=== PATIENT | male | born 1940 | race Caucasian/White ===

== ENCOUNTER 2024-02-04 08:08 | Inpatient (IN) | payer MEDICARE, OTHER ==
[~2024-02-04] VITALS: Ht 175.3 cm; Wt 53.7 kg
[2024-02-04] MEDS: cloNIDine HCL 0.1 MG TAB PO ONE (09:01)
[2024-02-04 09:03] LABS: Basophils # (auto) 0 10 ^3/uL (0-0.2); Basophils % (auto) 0.5 % (0.0-2.0); Eosinophils # (auto) 0.5 10 ^3/uL (0-0.8); Eosinophils % (auto) 7.5 % (0.0-7.0); Hematocrit 42.8 % (41.0-53.0); Hemoglobin 14.3 g/dL (13.5-17.5); Lymphocytes # (auto) 1.1 10 ^3/uL (0.4-5.4); Lymphocytes % (auto) 18.3 % (10.0-50.0); Mean Corpuscular Hemoglobin 30.6 pg (28.0-32.0); Mean Corpuscular Hgb Conc. 33.5 g/dL (32.0-36.0); Mean Corpuscular Volume 91.3 fL (80.0-100.0); Monocytes # (auto) 0.5 10 ^3/uL (0-1.3); Monocytes % (auto) 8.3 % (0.0-12.0); Neutrophils # (auto) 4.1 10 ^3/uL (1.6-8.6); Neutrophils % (auto) 65.4 % (37.0-80.0); Nucleated Red Blood Cells % 0.1 %; Platelet Count (auto) 186 10^3/uL (140-450); Red Blood Cells 4.68 10^6/uL (4.5-5.90); Red Cell Distribution Width 14.8 % (11.8-14.3); White Blood Cell 6.2 10^3/uL (4.4-10.8)
[2024-02-04 09:17] LABS: Chloride 110 mmol/L (98-107); Potassium 4.5 mmol/L (3.5-5.1); Sodium 140 mmol/L (136-145)
[2024-02-04 09:18] LABS: Anion Gap 6 (5-15); Calcium 10.1 mg/dL (8.7-10.4); Carbon Dioxide 24 mmol/L (20-31)
[2024-02-04 09:23] LABS: BUN/Creatinine Ratio 30.1 (10.0-20.0); Blood Urea Nitrogen 53 mg/dL (9-23); Glucose 181 mg/dL (74-106)
[2024-02-04] MEDS ORDERED: LOSA-535 PO (12:55)
[2024-02-04] MEDS ORDERED: AMIO200T13 PO (12:55)
[2024-02-04] MEDS ORDERED: METO25TA93 PO ×2 (12:55→18:39)
[2024-02-04] MEDS ORDERED: HYDR25TA5 PO (12:55)
[2024-02-04] MEDS ORDERED: ATOR40TA52 PO (12:55)
[2024-02-04] MEDS ORDERED: ONDANSETRON HCL 4 MG/2 ML VIAL IV PRN (13:00)
[2024-02-04] MEDS ORDERED: NITROGLYCERIN 0.4 MG SL TAB SL PRN (13:00)
[2024-02-04] MEDS ORDERED: MORPHINE SULFATE INJ 2 MG/ml SYRG IV PRN (13:00)
[2024-02-04] MEDS ORDERED: DEXTROSE (50%) 50ML SYRG IV PRN (13:00)
[2024-02-04] MEDS ORDERED: ACETAMINOPHEN 325 MG TAB PO PRN (13:00)
[2024-02-04 13:56] LABS: Urine Bacteria None Seen /hpf (None Seen)
[2024-02-04 14:54] LABS: Urine Blood Negative /uL (Negative); Urine Clarity Clear (Clear); Urine Color Light-Yellow (Yellow); Urine Mucus FEW (None Seen); Urine Protein, UAD Negative (Negative); Urine Specific Gravity 1.021 (1.001-1.035); Urine Urobilinogen Normal (Negative); Urine WBC <1 /hpf (0 - 3)
[2024-02-04 14:54] LABS: Magnesium 2.7 mg/dL (1.6-2.6)
[2024-02-04 14:55] LABS: Phosphorus 4.9 mg/dL (2.4-5.1)
[2024-02-04 16:00] VITALS: PULSE 52; RESP 16; O2SAT 98
[2024-02-04 17:00] VITALS: BP 144/53; PULSE 54; RESP 18; TEMP 98.2; O2SAT 97
[2024-02-04] MEDS: InsuLIN REG 1unit/0.01ml Soln (100units/ml) SC SCH (17:00)
[2024-02-04 17:45] VITALS: PULSE 54; RESP 18; O2SAT 97
[2024-02-04] MEDS: ACCU-CHEK COMFORT CURVE STRIP VI SCH (18:05)
[2024-02-04] MEDS ORDERED: DAPA10TA3 PO (18:39)
[2024-02-04] MEDS ORDERED: CHOL20007 PO (18:39)
[2024-02-04] MEDS ORDERED: ASPI1TAB20 PO (18:39)
[2024-02-04] MEDS ORDERED: GLIP10TA9 PO (18:39)
[2024-02-04] MEDS ORDERED: INSUINJ37 SC (18:42)
[2024-02-04 20:00] VITALS: PULSE 55; PULSE 60; RESP 20; O2SAT 94
[2024-02-04 21:00] VITALS: BP_SYST 118; BP_SYST 139; BP_DIAS 57; PULSE 60; RESP 20; TEMP 97.6; O2SAT 94; O2SAT 97
[2024-02-04] MEDS: AMIODARONE HCL 200 MG TAB PO SCH (21:17)
[2024-02-04] MEDS: ATORVASTATIN 20 MG TAB PO SCH (21:17)
[2024-02-05 01:00] VITALS: BP 115/90; PULSE 56; RESP 18; TEMP 97.9; O2SAT 96
[2024-02-05 05:00] VITALS: BP 118/56; PULSE 53; RESP 20; TEMP 98; O2SAT 97
[2024-02-05 06:30] LABS: Basophils # (auto) 0 10 ^3/uL (0-0.2); Basophils % (auto) 0.5 % (0.0-2.0); Eosinophils # (auto) 0.5 10 ^3/uL (0-0.8); Eosinophils % (auto) 9.9 % (0.0-7.0); Hematocrit 36.6 % (41.0-53.0); Hemoglobin 12.6 g/dL (13.5-17.5); Lymphocytes % (auto) 18.4 % (10.0-50.0); Mean Corpuscular Hemoglobin 31.3 pg (28.0-32.0); Mean Corpuscular Hgb Conc. 34.4 g/dL (32.0-36.0); Monocytes # (auto) 0.5 10 ^3/uL (0-1.3); Monocytes % (auto) 9.2 % (0.0-12.0); Neutrophils # (auto) 3.3 10 ^3/uL (1.6-8.6); Nucleated Red Blood Cells % 0.1 %; Platelet Count (auto) 169 10^3/uL (140-450); Red Blood Cells 4.02 10^6/uL (4.5-5.90); Red Cell Distribution Width 14.6 % (11.8-14.3); White Blood Cell 5.4 10^3/uL (4.4-10.8)
[2024-02-05 06:39] LABS: Chloride 112 mmol/L (98-107); Potassium 4.3 mmol/L (3.5-5.1); Sodium 141 mmol/L (136-145)
[2024-02-05 06:40] LABS: Anion Gap 6 (5-15); Carbon Dioxide 23 mmol/L (20-31)
[2024-02-05 06:41] LABS: Calcium 9.6 mg/dL (8.7-10.4)
[2024-02-05 06:45] LABS: BUN/Creatinine Ratio 29.8 (10.0-20.0); Blood Urea Nitrogen 45 mg/dL (9-23); Glucose 109 mg/dL (74-106)
[2024-02-05] MEDS: hydroCHLOROthiazide 25 MG TAB PO SCH (09:13)
[2024-02-05] MEDS: ASPirin-EC 81 mg tab PO SCH (09:13)
[2024-02-05] MEDS: LOSARTAN POTASSIUM 50 MG TAB PO SCH (09:14)
[2024-02-05] MEDS ORDERED: METOPROLOL SUCCINATE XL 50 MG TAB PO SCH (10:00)
[2024-02-05 13:00] VITALS: BP 110/57; PULSE 57; RESP 17; TEMP 97.7; O2SAT 95
[2024-02-05 17:00] VITALS: BP 103/54; PULSE 55; RESP 16; TEMP 97.6; O2SAT 94
[2024-02-05 20:00] VITALS: PULSE 62; PULSE 73
[2024-02-05 23:00] VITALS: BP 105/54; PULSE 59; RESP 18; TEMP 97.7; O2SAT 96
[2024-02-06 01:00] VITALS: BP 120/58; PULSE 62; RESP 17; TEMP 97.8; O2SAT 95
[2024-02-06 05:00] VITALS: BP 128/58; PULSE 59; RESP 16; TEMP 97.9; O2SAT 96
[2024-02-06 06:04] LABS: Basophils # (auto) 0 10 ^3/uL (0-0.2); Basophils % (auto) 0.5 % (0.0-2.0); Eosinophils # (auto) 0.4 10 ^3/uL (0-0.8); Eosinophils % (auto) 9.1 % (0.0-7.0); Hematocrit 37.5 % (41.0-53.0); Hemoglobin 12.9 g/dL (13.5-17.5); Lymphocytes % (auto) 20.6 % (10.0-50.0); Mean Corpuscular Hemoglobin 31.2 pg (28.0-32.0); Mean Corpuscular Hgb Conc. 34.5 g/dL (32.0-36.0); Mean Corpuscular Volume 90.3 fL (80.0-100.0); Monocytes # (auto) 0.5 10 ^3/uL (0-1.3); Monocytes % (auto) 9.8 % (0.0-12.0); Neutrophils # (auto) 2.9 10 ^3/uL (1.6-8.6); Platelet Count (auto) 162 10^3/uL (140-450); Red Blood Cells 4.15 10^6/uL (4.5-5.90); Red Cell Distribution Width 14.5 % (11.8-14.3); White Blood Cell 4.9 10^3/uL (4.4-10.8)
[2024-02-06 06:24] LABS: Alanine Aminotransferase 28 U/L (7-40); Alkaline Phosphatase 80 U/L (46-116); Anion Gap 10 (5-15); Aspartate Aminotransferase 15 U/L (13-40); BUN/Creatinine Ratio 27.9 (10.0-20.0); Bilirubin, Total 0.6 mg/dL (0.2-1.0); Blood Urea Nitrogen 41 mg/dL (9-23); Calcium 9.5 mg/dL (8.7-10.4); Carbon Dioxide 21 mmol/L (20-31); Chloride 110 mmol/L (98-107); Glucose 132 mg/dL (74-106); Sodium 141 mmol/L (136-145); Total Protein 6.3 g/dL (5.7-8.2)
[2024-02-06 07:30] VITALS: PULSE 50
[2024-02-06 09:00] VITALS: BP 134/79; PULSE 61; RESP 21; TEMP 98.5; O2SAT 96
[2024-02-06] MEDS: METOPROLOL SUCCINATE XL 50 MG TAB PO SCH (10:01)
[2024-02-06 13:00] VITALS: BP 126/56; PULSE 57; RESP 19; TEMP 99; O2SAT 97
[2024-02-06] MEDS ORDERED: METO-6 PO (14:50)
[2024-02-06 16:46] VITALS: BP 134/72; PULSE 58; TEMP 37.2
== END 2024-02-06 17:50 | disposition home or self-care (01) | DRG 309 ==
LOC: ER 08:08 → TELE 12:48 → TELE-EAST 17:05 → TELE-E-ADS 02-05 08:57
PROVIDERS: ADMIT Registered Nurse General Practice; ATTEND Registered Nurse General Practice
DX: R00.1 Bradycardia, unspecified (principal); N17.9 Acute kidney failure, unspecified; T44.7X5A Adverse effect of beta-adrenoreceptor antagonists, initial encounter; I47.10 Supraventricular tachycardia, unspecified; I48.91 Unspecified atrial fibrillation; E11.22 Type 2 diabetes mellitus with diabetic chronic kidney disease; N18.9 Chronic kidney disease, unspecified; I49.3 Ventricular premature depolarization; I12.9 Hypertensive chronic kidney disease with stage 1 through stage 4 chronic kidney disease, or unspecified chronic kidney disease; E78.5 Hyperlipidemia, unspecified; E87.8 Other disorders of electrolyte and fluid balance, not elsewhere classified; E83.41 Hypermagnesemia; K21.9 Gastro-esophageal reflux disease without esophagitis; Z86.73 Personal history of transient ischemic attack (TIA), and cerebral infarction without residual deficits; Z90.49 Acquired absence of other specified parts of digestive tract; I25.2 Old myocardial infarction; Z87.891 Personal history of nicotine dependence; Z79.899 Other long term (current) drug therapy; Z79.84 Long term (current) use of oral hypoglycemic drugs; Z79.82 Long term (current) use of aspirin; Z79.4 Long term (current) use of insulin
CPT/HCPCS: 36415; 70450; 71045; 80048; 80053; 80061; 81001; 82306; 82607; 82962; 83036; 83735; 84100; 84443; 84484; 85025; 93005; 93306; 93886; 99291; G0378; J1815

== ENCOUNTER 2024-09-15 16:37 | Inpatient (IN) | payer MEDICARE, OTHER ==
[~2024-09-15] VITALS: Ht 177.8 cm; Wt 77.2 kg
[~2024-09-15 16:37] MED LIST: AMIO200T13 PO; ASPI1TAB20 PO; ATOR40TA52 PO; CHOL20007 PO; DAPA10TA3 PO; GLIP10TA9 PO; INSUINJ37 SC; METO-6 PO
--- NOTE | 2024-09-15 16:48 | ECG ---
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
--- NOTE | 2024-09-15 17:51 | ED.PDOC ---
HPI (NEURO) HPI Comments This is an 83 year old male WILMER presenting to the ED with chief complaint of left leg weakness. Patient reports that he woke up this morning with left leg weakness, not being able to move around as he normally does. Patient relays that he was not able to walk himself around with his walker as well. Patient denies any falls, left arm weakness, chest pain, SOB, fever, or chills. Chief Complaint: General Weakness Time Seen by MD: 17:50 Primary Care Provider: UNKNOWN Reviewed Notes: Nurses Notes, Medications, Allergies Information Source: Patient Mode of Arrival: EMS Severity: Moderate Dizziness/Weakness Severity: Unable to do activities Timing: Hours Duration: Since onset Prehospital treatment: None Weakness Location: (L) Leg Onset: At rest Circumstances: Spontaneous Past Medical History PAST MEDICAL HISTORY: Cancer (Prostate), CKF, CVA, DM, HTN Surgical History: Cholecystectomy, Hernia Repair, Tonsillectomy Surgical History (Other): Cataract surgery Family History Family History: Reviewed,noncontributory to illness Social History Smoker: Non-Smoker Alcohol: Denies ETOH Use Drugs: Denies Drug Use Lives In: Home Constitutional: denies: chills, diaphoresis, fatigue, fever, malaise, sweats, weakness, others EENTM: denies: blurred vision, double vision, ear bleeding, ear discharge, ear drainage, ear pain, ear ringing, eye pain, eye redness, hearing loss, mouth pain, mouth swelling, nasal discharge, nose bleeding, nose congestion, nose pain, photophobia, tearing, throat pain, throat swelling, voice changes, others Respiratory: denies: cough, hemoptysis, orthopnea, SOB at rest, shortness of breath, SOB with excertion, stridor, wheezing, others Cardiovascular: denies: chest pain, dizzy spells, diaphoresis, Dyspnea on exertion, edema, irregular heart beat, left arm pain, lightheadedness, palpitations, PND, syncope, others Gastrointestinal: denies: abdomen distended, abdominal pain, blood streaked bowels, constipated, diarrhea, dysphagia, difficulty swallowing, hematemesis, melena, nausea, poor appetite, poor fluid intake, rectal bleeding, rectal pain, vomiting, others Genitourinary: denies: burning, dysuria, flank pain, frequency, hematuria, incontinence, penile discharge, penile sore, pain, testicle pain, testicle swelling, urgency, others Neurological: reports: others (Left leg weakness); denies: dizziness, fainting, headache, left sided numbness, left sided weakness, numbness, paresthesia, pre- existing deficit, right sided numbness, right sided weakness, seizure, speech problems, tingling, tremors, weakness Musculoskeletal: denies: back pain, gout, joint pain, joint swelling, muscle pain, muscle stiffness, neck pain, others Integumetry: denies: bruises, change in color, change in hair/nails, dryness, laceration, lesions, lumps, rash, wounds, others Allergic/Immunocompromised: denies: Difficulty Healing, Frequent Infections, Hives, Itching, others Hematologic/Lymphatic: denies: anemia, blood clots, easy bleeding, easy bruising, swollen glands, others Endocrine: denies: excessive hunger, excessive sweating, excessive thirst, excessive urination, flushing, intolerance to cold, intolerance to heat, unexplained weight gain, unexplained weight loss, others Psychiatric: denies: anxiety, bipolar disorder, depression, hopeless, panic disorder, schizophrenia, sleepless, suicidal, others All Other Systems: Reviewed and Negative Physical Exam General Appearance: Moderate Distress HEENT: Normal ENT Inspection, Pharynx Normal, TMs Normal Neck: Full Range of Motion, Non-Tender, Normal, Normal Inspection Respiratory: Chest Non-Tender, Lungs Clear, No Accessory Muscle Use, No Respiratory Distress, Normal Breath Sounds Cardiovascular: No Edema, No JVD, No Murmur, No Gallop, Normal Peripheral Pulses, Regular Rate/Rhythm Breast Exam: Deferred Gastrointestinal: No Organomegaly, Non Tender, No Pulsatile Mass, Normal Bowel Sounds, Soft Genitalia: Deferred Pelvic: Deferred Rectal: Deferred Extremities: No calf tenderness, Normal capillary refill, No pedal edema Musculoskeletal : Apperance: Normal Neurologic: Alert, Motor Weakness (Left-sided lower extremity weakness), Normal Affect, Normal Mood, No Sensory Deficits Cerebellar Function: Unable to Test Reflexes: Normal Skin: Dry, Normal Color, Warm Lymphatic: No Adenopathy EKG EKG : Pulse Rate (adult): 55 [place]: Normal Cardiac Rhythm: NSR Block: None Hypertrophy: None ST: Normal Comments Low Voltage Was a procedure done? Was a procedure done?: No Differential Diagnosis (SZ) Seizure: N/A CVA: CVA, Hypoglycemia, TIA X-Ray, Labs, Meds, VS Vital Signs Date Time Temp Pulse Resp B/P (MAP) Pulse Ox O2 Delivery O2 Flow Rate FiO2 09/15/24 17:51 55 09/15/24 16:42 55 09/15/24 16:40 97.9 62 16 138/61 (86) 96 97.9 Lab Test 09/15/24 19:08 09/15/24 18:04 Range/Units Troponin I High Sensitivity 23 25 </=54 ng/L White Blood Count 6.1 4.4-10.8 10^3/uL Red Blood Count 4.51 4.5-5.90 10^6/uL Hemoglobin 13.7 13.5-17.5 g/dL Hematocrit 40.5 L 41.0-53.0 % Mean Corpuscular Volume 89.7 80.0-100.0 fL Mean Corpuscular Hemoglobin 30.3 28.0-32.0 pg Mean Corpuscular Hemoglobin Concent 33.8 32.0-36.0 g/dL Red Cell Distribution Width 14.7 H 11.8-14.3 % Platelet Count 177 140-450 10^3/uL Mean Platelet Volume 7.5 6.9-10.8 fL Neutrophils (%) (Auto) 71.8 37.0-80.0 % Lymphocytes (%) (Auto) 19.0 10.0-50.0 % Monocytes (%) (Auto) 7.5 0.0-12.0 % Eosinophils (%) (Auto) 1.3 0.0-7.0 % Basophils (%) (Auto) 0.4 0.0-2.0 % Neutrophils # (Auto) 4.4 1.6-8.6 10 ^3/uL Lymphocytes # (Auto) 1.2 0.4-5.4 10 ^3/uL Monocytes # (Auto) 0.5 0-1.3 10 ^3/uL Eosinophils # (Auto) 0.1 0-0.8 10 ^3/uL Basophils # (Auto) 0 0-0.2 10 ^3/uL Nucleated Red Blood Cells 0.2 % Sodium Level 144 136-145 mmol/L Potassium Level 4.0 3.5-5.1 mmol/L Chloride Level 113 H 98-107 mmol/L Carbon Dioxide Level 26 20-31 mmol/L Anion Gap 5 5-15 Blood Urea Nitrogen 28 H 9-23 mg/dL Creatinine 1.31 H 0.700-1.30 mg/dL Glomerular Filtration Rate Calc 53 >90 mL/min BUN/Creatinine Ratio 21.4 H 10.0-20.0 Serum Glucose 79 74-106 mg/dL Calcium Level 10.2 8.7-10.4 mg/dL CT Head indicates: No evidence of acute intracranial abnormality. If symptoms persist, consider MRI for further evaluation. The patient's CBC is within normal limits The chemistry panel shows a BUN of 28 and creatinine of 1.31 The urine test is pending The patient's seems to have some weakness to the left leg. The patient's troponin level x2 is negative The patient is being admitted at this time The patient understands and agrees with the management Images Reviewed?: Images reviewed and evaluated by me Time of 1ST Reevaluation: 20:08 Reevaluation 1ST: Unchanged Patient Education/Counseling: Diagnosis, Treatment, Prognosis Family Education/Counseling: Diagnosis, Treatment, Prognosis Additional Information Reviewed patient's previous visit(s): 02/04/24 for dizziness The following tests were ordered, and results were reviewed by me: Head CT, EKG, CBC, BMP, UA, Troponin Additional information was gathered from interviewing the following independent historian: EMS, Nephew I reviewed and agreed with the following test results read by other provider: Head CT I discussed treatments and results with medical personnel and: Patient and family Comprehensive systems review obtained and negative except for what is stated in the HPI. Departure 1 Departure Time of Disposition: 20:07 Impression: Primary Impression: TIA (transient ischemic attack) Additional Impressions: Generalized weakness Autonomic dysfunction Disposition: 09 ADMITTED INPATIENT Admit to: Tele Condition: Fair Critical Care Note Critical Care Time?: No Stability Stability form required: Yes Unstable for transfer: Telemetry monitoring (Telemetry monitoring required), ED Physician Assesment Heart Score Heart Score: Heart Score Response (Comments) Value History N/A 0 EKG N/A 0 Age N/A 0 Risk Factors N/A 0 Troponin N/A 0 Total 0 I personally scribed for MICAH TORRES MD ([email or web address]) on 09/15/24 at 17:51. Electronically submitted by Ryne Hathaway ([email or web address]). I personally scribed for MICAH TORRES MD ([email or web address]) on 09/15/24 at 17:51. Electronically submitted by Ryne Hathaway ([email or web address]). I personally scribed for MICAH TORRES MD ([email or web address]) on 09/15/24 at 18:09. Electronically submitted by Ryne Hathaway ([email or web address]). I personally scribed for MICAH TORRES MD ([email or web address]) on 09/15/24 at 18:54. Electronically submitted by Ryne Hathaway ([email or web address]). MICAH TORRES MD Sep 15, 2024 17:51
[2024-09-15 18:25] LABS: Basophils # (auto) 0 10 ^3/uL (0-0.2); Basophils % (auto) 0.4 % (0.0-2.0); Eosinophils # (auto) 0.1 10 ^3/uL (0-0.8); Eosinophils % (auto) 1.3 % (0.0-7.0); Hematocrit 40.5 % (41.0-53.0); Hemoglobin 13.7 g/dL (13.5-17.5); Lymphocytes # (auto) 1.2 10 ^3/uL (0.4-5.4); Mean Corpuscular Hemoglobin 30.3 pg (28.0-32.0); Mean Corpuscular Hgb Conc. 33.8 g/dL (32.0-36.0); Mean Corpuscular Volume 89.7 fL (80.0-100.0); Monocytes # (auto) 0.5 10 ^3/uL (0-1.3); Monocytes % (auto) 7.5 % (0.0-12.0); Neutrophils # (auto) 4.4 10 ^3/uL (1.6-8.6); Neutrophils % (auto) 71.8 % (37.0-80.0); Nucleated Red Blood Cells % 0.2 %; Platelet Count (auto) 177 10^3/uL (140-450); Red Blood Cells 4.51 10^6/uL (4.5-5.90); Red Cell Distribution Width 14.7 % (11.8-14.3); White Blood Cell 6.1 10^3/uL (4.4-10.8)
[2024-09-15 18:32] LABS: Sodium 144 mmol/L (136-145)
[2024-09-15 18:33] LABS: Anion Gap 5 (5-15); Carbon Dioxide 26 mmol/L (20-31)
[2024-09-15 18:34] LABS: Calcium 10.2 mg/dL (8.7-10.4)
[2024-09-15 18:38] LABS: Glucose 79 mg/dL (74-106)
[2024-09-15 18:39] LABS: BUN/Creatinine Ratio 21.4 (10.0-20.0)
[2024-09-15 18:44] LABS: Blood Urea Nitrogen 28 mg/dL (9-23); Chloride 113 mmol/L (98-107)
--- NOTE | 2024-09-15 18:44 | DVH ---
Procedure: CT HEAD WITHOUT CONTRAST Study Date and Requested Time: 09/15/2024 06:10 PM History: left leg pain Comparison: CT HEAD WITHOUT CONTRAST on DOS: 02/04/24 Dose: CTDI: 59.37 mGy DLP: 951.67 mGycm Technique: Multiplanar images obtained through the brain without intravenous contrast. Findings: Moderate to severe diffuse brain atrophy. Severe chronic small vessel ischemic changes. Encephalomala nathalie upper the left high convexity frontal lobe with chronic lacunar infarct within the right basal ga nglia and right thalamus No hemorrhages, masses, mass effect, midline shift, herniation or cytotoxic edema following a large v ascular territory. No intra-axial or extra-axial fluid collections. No evidence of hydrocephalus. The basal cisterns are patent. The pituitary gland, sella and parasellar regions are unremarkable. The cerebellum is unremarkable. Bilateral lens replacement. Otherwise, orbits and globes are unremarkable. Mucoperiosteal thickening of the frontal, maxillary and ethmoid air cells with opacification of left posterior ethmoid air ce lls. The mastoids are clear. There are no worrisome calvarial lesions. Impression: No evidence of acute intracranial abnormality. If symptoms persist, consider MRI for further evaluati on.
[2024-09-15] MEDS ORDERED: DOCUSATE SOD 100 MG CAP PO PRN (21:00)
[2024-09-15] MEDS ORDERED: ACETAMINOPHEN 325 MG TAB PO PRN (21:00)
[2024-09-15] MEDS ORDERED: SODIUM CHLORIDE 0.9% 1,000 ML IV SCH (21:00)
[2024-09-15] MEDS ORDERED: NITROGLYCERIN 0.4 MG SL TAB SL PRN (21:00)
[2024-09-15] MEDS ORDERED: ONDANSETRON HCL 4 MG/2 ML VIAL IV PRN (21:00)
[2024-09-15] MEDS ORDERED: MORPHINE SULFATE 4 MG/ML SYR/VIAL IV PRN ×2 (21:00)
--- NOTE | 2024-09-15 21:55 | DVHHPRES ---
History of Present Illness Resident Creating Document: JOCELYN SHARIF RESIDENT History of Present Illness Mr. Espinoza, a 83-year-old male with past medical history includes prostate cancer, chronic kidney failure, a previous stroke, diabetes, paroxysmal atrial fibrillation and hypertension and surgical history includes a cholecystectomy, hernia repair, tonsillectomy, spinal surgery, and cataract surgery was Brought In By Ambulance from home into the emergency department with a sudden onset of left leg weakness that began upon waking, impairing his ability to walk even with a walker. He denies experiencing any falls, left arm weakness, chest pain, shortness of breath, fever, or chills. Floor Manager Dr. Hernandez and Dr. Brower is PCP. Differentials include cerebrovascular accident (CVA), hypoglycemia, and transient ischemic attack (TIA), with additional concerns including generalized weakness and autonomic dysfunction. The patient was hospitalized around February 03, 2010, while incarcerated, due to SVT/NSVT and frequent PVCs, accompanied by a brief episode of dizziness and vertigo that resolved on its own. Neurology and cardiology evaluations were conducted. Imaging showed chronic ischemic changes, and EKG revealed sinus bradycardia. Lab results indicated acute kidney injury on top of chronic kidney disease, which later improved. The patient was started on aspirin and atorvastatin, continued on amiodarone (despite no atrial fibrillation history), and had a reduced dose of metoprolol. An echocardiogram showed concentric left ventricular hypertrophy with preserved ejection fraction, and carotid Doppler results were normal. Past Medical History prostate cancer, chronic kidney failure, a previous stroke, diabetes, paroxysmal atrial fibrillation and hypertension Past Surgical History cholecystectomy, hernia repair, tonsillectomy, spinal surgery, and cataract surgery Family History: None, DM, Hypertension, Other (Noncontributory) Smoke: No ALCOHOL: none Drugs: None Lives: with Family Domestic Violence: Neg Review of Systems Constitutional: Yes: Weakness, Malaise; No: Fever, Chills, Sweats, Other Eyes: No: Pain, Vision change, Conjunctivae inflammation, Eyelid inflammation, Other, Redness ENT: No: Ear pain, Ear discharge, Nose pain, Nose discharge, Nose congestion, Mouth pain, Mouth swelling, Throat pain, Throat swelling, Other Respiratory: No: Cough, Dry, Shortness of breath, SOB with excertion, Wheezing, Hemoptysis, Pleuritic Pain, Sputum, Wheezing, Other Cardiovascular: No: Chest Pain, Palpitations, Orthopnea, Paroxysmal Noc. Dyspnea, Edema, Lt Headedness, Other Gastrointestinal: No: Nausea, Vomiting, Abdominal Pain, Diarrhea, Constipation, Melena, Hematochezia, Other Genitourinary: No Dysuria, No Frequency, No Incontinence, No Hematuria, No Retention, No Other Musculoskeletal: other (Started onset of left leg weakness); No: neck pain, shoulder pain, arm pain, back pain, hand pain, leg pain, foot pain Skin: No: Rash, Lesions, Jaundice, Bruising, Other Neurological: Weakness; No: Numbness, Incoordination, Change in speech, Confusion, Seizures, Other Allergies: Coded Allergies: NO KNOWN ALLERGIES (Unverified , 02/04/24) Medications Current Medications Medications Dose Ordered Sig/Carlos Route Start Time Stop Time Status Last Admin Dose Admin Ondansetron HCl 4 mg Q4HP PRN IV 09/15/24 21:00 Docusate Sodium 100 mg BIDPRN PRN PO 09/15/24 21:00 Acetaminophen 650 mg Q6HP PRN PO 09/15/24 21:00 Morphine Sulfate 2 mg Q4HPRN PRN IV 09/15/24 21:00 Nitroglycerin 0.4 mg Q5MINP PRN SL 09/15/24 21:00 Morphine Sulfate 2 mg Q30M PRN IV 09/15/24 21:00 Aspirin 81 mg DAILY PO 09/16/24 10:00 Atorvastatin Calcium 40 mg HS PO 09/15/24 22:00 Exam Vital Signs Vital Signs Date Time Temp Pulse Resp B/P (MAP) Pulse Ox O2 Delivery O2 Flow Rate FiO2 09/15/24 20:07 98.5 67 18 155/75 (101) 97 98.5 General Appearance: Alert, Oriented X3, Cooperative, mild distress HEENT: Atraumatic, PERRLA, EOMI, Other (Mild mucosal dryness) Respiratory: Clear to auscultation, Normal air movement Cardiovascular: Regular rate, Normal S1, Normal S2, No murmurs, Gallops, Other Abdominal: Normal bowel sounds, Soft, No tenderness, No hepatospenomegaly, No masses Extremities: No clubbing, No cyanosis, No edema, Normal pulses, No tenderness/swelling Skin: No rashes, No breakdown, No significant lesion Neuro: Normal gait, Normal speech, Strength at 5/5 X4 ext, Normal tone, Sensation intact, Cranial nerves 3-12 NL, Reflexes 2+, Other (At baseline, likely recovered from the acute weakness) Psych/Mental Status: Mental status NL, Mood NL, Other (Denies homicidal or suicidal ideation) Labs/Xrays Labs Test 09/15/24 19:08 09/15/24 18:04 Range/Units Troponin I High Sensitivity 23 </=54 ng/L White Blood Count 6.1 4.4-10.8 10^3/uL Red Blood Count 4.51 4.5-5.90 10^6/uL Hemoglobin 13.7 13.5-17.5 g/dL Hematocrit 40.5 L 41.0-53.0 % Mean Corpuscular Volume 89.7 80.0-100.0 fL Mean Corpuscular Hemoglobin 30.3 28.0-32.0 pg Mean Corpuscular Hemoglobin Concent 33.8 32.0-36.0 g/dL Red Cell Distribution Width 14.7 H 11.8-14.3 % Platelet Count 177 140-450 10^3/uL Mean Platelet Volume 7.5 6.9-10.8 fL Neutrophils (%) (Auto) 71.8 37.0-80.0 % Lymphocytes (%) (Auto) 19.0 10.0-50.0 % Monocytes (%) (Auto) 7.5 0.0-12.0 % Eosinophils (%) (Auto) 1.3 0.0-7.0 % Basophils (%) (Auto) 0.4 0.0-2.0 % Neutrophils # (Auto) 4.4 1.6-8.6 10 ^3/uL Lymphocytes # (Auto) 1.2 0.4-5.4 10 ^3/uL Monocytes # (Auto) 0.5 0-1.3 10 ^3/uL Eosinophils # (Auto) 0.1 0-0.8 10 ^3/uL Basophils # (Auto) 0 0-0.2 10 ^3/uL Nucleated Red Blood Cells 0.2 % Sodium Level 144 136-145 mmol/L Potassium Level 4.0 3.5-5.1 mmol/L Chloride Level 113 H 98-107 mmol/L Carbon Dioxide Level 26 20-31 mmol/L Anion Gap 5 5-15 Blood Urea Nitrogen 28 H 9-23 mg/dL Creatinine 1.31 H 0.700-1.30 mg/dL Glomerular Filtration Rate Calc 53 >90 mL/min BUN/Creatinine Ratio 21.4 H 10.0-20.0 Serum Glucose 79 74-106 mg/dL Calcium Level 10.2 8.7-10.4 mg/dL Assessment/Plan Assessment/Plan Assessment: #Likely case of TIA #History of prostate cancer #chronic kidney failure CKD stage IIIB # history of previous stroke, # diabetes mellitus well controlled, HGB A1c around seven on home Lantus # fairly controlled essential hypertension # paroxysmal atrial fibrillation, CHADS-VASc score of six, apparently not on anticoagulants needs further evaluation # surgical history of cholecystectomy # surgical history of hernia repair # surgical history of tonsillectomy # surgical history of spinal surgery # surgical history of cataract surgery # mild dehydration Status post IV gentle fluid rehydration. #ACS ruled out trops -ve telemetry and EKG cxr pending #Acute Hemorrhagic Stroke Ruled out #likely Generalized deconditioning #generalized anxiety/ depression on SSRI Plan: #HnH stable , significant anemia ruled out. #CKD stage III b , around baseline creatinine 1.3 , avoid nephrotoxic. #Acute Hemorrhagic Stroke Ruled out with NCCT head: aspirin, statin PT, SW as needed. #Likely case of TIA, carotid Doppler, echo pending. Continue conservative management. #DM HbA1c , bg 79 poc, LR D5 for now hold the home meds Lantus on hold for now, recheck HGB A1c #Prostate Cancer in remission check PSA #Generalized deconditioning, rule out mild - moderate Malnutrition check for albumin with complete CMP. #History of anxiety/ depression: Denies homicidal or suicidal ideation continue Sertraline HCl 25 mg #essential hypertension: Home medications include hydrochlorothiazide 25 mg, lisinopril 20 mg, given advanced age liberal blood pressure control to continue. Tomorrow we will start with lisinopril 20 with the daily renal function tests. #History of paroxysmal atrial fibrillation: not on anticoagulants, likely due to advanced age and high-risk. Follows Dr. Hernandez cardiology, metoprolol succinate ER 25 mg, amiodarone 200 mg daily , continue telemetry, holding metoprolol and amiodarone given heart rate In 50s. #high-risk of TIA, debating on MRI, neurology consulted, swallow eval, aspiration precaution, fall precaution, physical therapy evaluation pending. #DVT prophylaxis with SCDs, avoid anticoagulants given advanced age for now #GI prophylaxis with IV PPI Code status: Full code, goals of care discussed along with the care plans. Patient is agreeable. Patient is getting admitted in hospital for further workup and management with a neurology consult and physical therapy Discussed with Dr. Briggs. Plan discussed with: Patient My Orders Orders - JOCELYN SHARIF RESIDENT Procedure Category Date Status Time Admit ADMIT 09/15/24 Transmitted 20:56 Allergies MICHAEL 09/15/24 In Process 20:56 Code Status CODE 09/15/24 Transmitted 20:56 Ondansetron Hcl PHA 09/15/24 In Process (Zofran) 21:00 Docusate Sodium PHA 09/15/24 In Process Capsule (Colace 21:00 Fall Risk Precautions MICAHEL 09/15/[address] 20:56 Complete Blood Count LAB 09/16/24 Verified 04:00 Comprehensive LAB 09/16/24 Verified Metabolic Panel 04:00 Npo (Nothing By DIET 09/16/24 Transmitted Mouth) Diet Breakfast Pt Request For Service PT 09/15/24 Logged 20:56 * Swallow Request ST 09/15/24 Transmitted 20:56 Echo 2d Mode Cardiac US 09/15/24 Logged DOP 20:56 Carotid Duplx W Color US 09/15/24 Logged DOP 20:56 Condition: Fair MICHAEL 09/15/24 In Process 20:56 Acetaminophen Tablet PHA 09/15/24 In Process (Tylenol Tablet) 21:00 Bedside Commode MICHAEL 09/15/24 In Process 20:56 Sequential MICHAEL 09/15/24 In Process Compression Device Nitroglycerin PHA 09/15/24 In Process Sublingual (Ntrostat 21:00 Oxygen By Nasal RT 09/15/24 Transmitted Cannula 20:56 Stat Ekg For Chest MICHAEL 09/15/24 In Process Pain 20:56 Notify Md Of Changes MICHAEL 09/15/24 In Process From Base 20:56 Black [employer] White Printer Operator For MICHAEL 09/15/24 In Process 24 Hours 20:56 Emergency Dysrhythmia MICHAEL 09/15/24 In Process Protocol 20:56 Rhythm Strips Once MICHAEL 09/15/24 In Process Every Shift 20:56 * Neurology Consult CONS 09/15/24 Transmitted 21:13 Aspirin Tablet PHA 09/16/24 In Process 10:00 Thyroid Stimulating LAB 09/15/24 In Process Hormone 21:20 Chest Xray 1 View XY 09/15/24 Taken 21:20 Atorvastatin (Lipitor) PHA 09/15/24 In Process 22:00 Atorvastatin (Lipitor) PHA 09/15/24 In Process 22:00 D5w/Lactated Ringers PHA 09/15/24 In Process (D5wlr) 21:30 Psa Total+% Free LAB 09/15/24 In Process 21:28 Morphine Sulfate PHA 09/15/24 In Process Injection 21:00 Morphine Sulfate PHA 09/15/24 In Process Injection 21:00 Date of Service: Sep 15, 2024 Billing Provider: XIANG BRIGGS MD Common Visit Codes: 28822-LHNTWIS INP/OBS CARE (HIGH) Secondary Visit Codes: 07471-[id number] CARE PLAN 30 MINUTES JOCELYN SHARIF RESIDENT Sep 15, 2024 21:55 XIANG BRIGGS MD Sep 17, 2024 22:18
--- NOTE | 2024-09-15 21:57 | DVH ---
CHEST RADIOGRAPH Indication: rule out intrathoracic pathology Technique: Single frontal view of the chest was obtained Comparison: XY CHEST PORTABLE on DOS: 02/05/24 FINDINGS: Lines and Tubes: None Lungs: Clear Pleura: No effusion. No pneumothorax. Cardiomediastinal contours: Unremarkable Bones: Unremarkable IMPRESSION: Clear lungs.
[2024-09-15] MEDS: ATORVASTATIN 20 MG TAB PO SCH (22:31)
[2024-09-15] MEDS: ASPirin 81 mg TAB PO ONE (22:41)
[2024-09-15] MEDS: ATORVASTATIN 20 MG TAB PO ONE (22:42)
[2024-09-15 23:52] VITALS: PULSE 50
[2024-09-16] VITALS (8 sets, daily range): BP systolic 118–150; BP diastolic 49–66; PULSE 45–64; RESP 17–18; TEMP 97.5–98.3; O2SAT 94–98
[2024-09-16] MEDS ORDERED: HYDR25TA5 PO (00:32)
[2024-09-16] MEDS ORDERED: LISI20TA56 PO (00:32)
[2024-09-16] MEDS ORDERED: GLIP5TAB21 PO (00:32)
[2024-09-16] MEDS ORDERED: METO25TA93 PO (00:32)
[2024-09-16] MEDS ORDERED: LOSA-535 PO (00:32)
--- NOTE | 2024-09-16 01:11 | DVH ---
CAROTID DOPPLER EXAMINATION CLINICAL HISTORY: rule out carotid stenosis COMPARISON: 02/04/2024. TECHNIQUE: Real-time high resolution grayscale imaging and color Doppler flow imaging with pulsed du plex sonography of the carotid and vertebral arteries is performed. Velocity criteria are extrapolated from angiographic diameter data as defined by the Society of [employer] in Ultrasound Consensus Conference (Radiology 2003; 229: 340-346). FINDINGS: Calcified plaque in the right carotid bulb. Plaque in the proximal left internal carotid artery. Vert ebral arteries appear patent with antegrade flow. Peak systolic velocities (cm/s): Right ICA proximal: 131.9 Right ICA mid: 84.0 Right ICA distal: 60.7 Right systolic ICA/CCA ratio: 2.2 Left ICA proximal: 49.6 Left ICA mid: 54.9 Left ICA distal: 59.8 Left systolic ICA/CCA ratio: 1.1 IMPRESSION: 50-69% stenosis in the right internal carotid artery. Antegrade flow in the bilateral vertebral arteries. HS:Y
[2024-09-16] MEDS: D5W/LACTATED RINGERS 1,000 ML IV ONE (01:16)
[2024-09-16] MEDS ORDERED: hydrALAZINE HCL 20 MG/ML VL IV PRN (01:30)
[2024-09-16] MEDS: ASPirin 81 mg TAB PO ONE (01:38)
[2024-09-16] MEDS: ATORVASTATIN 20 MG TAB PO ONE (01:38)
[2024-09-16 01:57] LABS: Urine Bacteria None Seen /hpf (None Seen)
[2024-09-16 02:09] LABS: Urine Blood Negative /uL (Negative); Urine Clarity Clear (Clear); Urine Color Light-Yellow (Yellow); Urine Protein, UAD TRACE (Negative); Urine Specific Gravity 1.027 (1.001-1.035); Urine Squamous Epithelial Cell None Seen /hpf (<5); Urine Urobilinogen Normal (Negative); Urine WBC < 1 /HPF (0-3)
[2024-09-16 05:42] LABS: Basophils # (auto) 0 10 ^3/uL (0-0.2); Basophils % (auto) 0.5 % (0.0-2.0); Eosinophils # (auto) 0.1 10 ^3/uL (0-0.8); Eosinophils % (auto) 2.9 % (0.0-7.0); Hematocrit 37.5 % (41.0-53.0); Hemoglobin 12.7 g/dL (13.5-17.5); Lymphocytes # (auto) 1.1 10 ^3/uL (0.4-5.4); Lymphocytes % (auto) 21.3 % (10.0-50.0); Mean Corpuscular Hemoglobin 30.4 pg (28.0-32.0); Mean Corpuscular Volume 89.5 fL (80.0-100.0); Monocytes # (auto) 0.5 10 ^3/uL (0-1.3); Monocytes % (auto) 9.7 % (0.0-12.0); Neutrophils # (auto) 3.3 10 ^3/uL (1.6-8.6); Neutrophils % (auto) 65.6 % (37.0-80.0); Nucleated Red Blood Cells % 0.7 %; Platelet Count (auto) 145 10^3/uL (140-450); Red Blood Cells 4.19 10^6/uL (4.5-5.90); Red Cell Distribution Width 14.8 % (11.8-14.3)
[2024-09-16 05:57] LABS: Alanine Aminotransferase 19 U/L (7-40); Albumin 3.9 g/dL (3.2-4.8); Alkaline Phosphatase 88 U/L (46-116); Anion Gap 6 (5-15); Aspartate Aminotransferase 15 U/L (13-40); BUN/Creatinine Ratio 18.5 (10.0-20.0); Blood Urea Nitrogen 22 mg/dL (9-23); Calcium 9.7 mg/dL (8.7-10.4); Carbon Dioxide 24 mmol/L (20-31); Cholesterol 154 mg/dL (< 200); LDL Cholesterol 69 mg/dL (< 100); Potassium 3.8 mmol/L (3.5-5.1); Triglycerides 75 mg/dL (< 150)
[2024-09-16 05:58] LABS: Bilirubin, Total 0.6 mg/dL (0.2-1.0); Chloride 116 mmol/L (98-107); Glucose 106 mg/dL (74-106); HDL Cholesterol 65 mg/dL (40-59); Sodium 146 mmol/L (136-145)
[2024-09-16] MEDS: SERTRALINE HCL 50 MG TAB PO SCH (10:00)
[2024-09-16] MEDS: ASPirin 81 mg TAB PO SCH (10:47)
[2024-09-16] MEDS: LISINOPRIL 20 MG TAB PO SCH (10:47)
--- NOTE | 2024-09-16 13:16 | DVHPN2 ---
Reviewed: Care Plan, H&P, Labs, Medications, Previous Orders, Radiology Changes from previous H/P or p: No Changes Eyes: No Pain, No Vision change, No Conjunctivae inflammation, No Eyelid inflammation, No Other, No Redness ENT: No Ear pain, No Ear discharge, No Nose pain, No Nose discharge, No Nose congestion, No Mouth pain, No Mouth swelling, No Throat pain, No Throat swelling, No Other Cardiovascular: No Chest Pain, No Palpitations, No Orthopnea, No Paroxysmal Noc. Dyspnea, No Edema, No Lt Headedness, No Other Respiratory: No Cough, No Dry, No Shortness of breath, No SOB with excertion, No Wheezing, No Hemoptysis, No Pleuritic Pain, No Sputum, No Other Gastrointestinal: No Nausea, No Vomiting, No Abdominal Pain, No Diarrhea, No Constipation, No Melena, No Hematochezia, No Other Genitourinary: No Dysuria, No Frequency, No Incontinence, No Hematuria, No Retention, No Other Musculoskeletal: other (Started onset of left leg weakness); No neck pain, No shoulder pain, No arm pain, No back pain, No hand pain, No leg pain, No foot pain Skin: No Rash, No Lesions, No Jaundice, No Bruising, No Other Objective Vitals Vital Signs Date Time Temp Pulse Resp B/P (MAP) Pulse Ox O2 Delivery O2 Flow Rate FiO2 09/16/24 12:50 97.5 56 18 138/62 (87) 96 97.5 09/16/24 00:03 Room Air* 0 21 Intake/Output Intake and Output 09/16/24 07:00 Intake Total 250 ml Balance 250 ml Intake Oral 0 ml IV Total 250 ml Medications Current Medications Medications Dose Ordered Sig/Carlos Route Start Time Stop Time Status Last Admin Dose Admin Ondansetron HCl 4 mg Q4HP PRN IV 09/15/24 21:00 Docusate Sodium 100 mg BIDPRN PRN PO 09/15/24 21:00 Acetaminophen 650 mg Q6HP PRN PO 09/15/24 21:00 Morphine Sulfate 2 mg Q4HPRN PRN IV 09/15/24 21:00 Nitroglycerin 0.4 mg Q5MINP PRN SL 09/15/24 21:00 Morphine Sulfate 2 mg Q30M PRN IV 09/15/24 21:00 Aspirin 81 mg DAILY PO 09/16/24 10:00 09/16/24 10:47 81 MG Atorvastatin Calcium 40 mg HS PO 09/15/24 22:00 Sertraline HCl 25 mg DAILY PO 09/16/24 10:00 09/16/24 10:00 25 MG Lisinopril 20 mg DAILY PO 09/16/24 10:00 09/16/24 10:47 20 MG Hydralazine HCl 10 mg Q6HR PRN IV 09/16/24 01:30 Laboratory Results Laboratory Tests 09/16/24 05:18 Chemistry Test 09/15/24 18:04 09/16/24 05:18 Calcium Level 10.2 mg/dL (8.7-10.4) 9.7 mg/dL (8.7-10.4) Albumin 3.9 g/dL (3.2-4.8) Total Protein 6.0 g/dL (5.7-8.2) Lipid panel Test 09/16/24 05:18 Cholesterol Level 154 mg/dL (< 200) HDL Cholesterol 65 mg/dL (40-59) H Triglycerides Level 75 mg/dL (< 150) LFT Test 09/16/24 05:18 Alanine Aminotransferase (ALT) 19 U/L (7-40) Alkaline Phosphatase 88 U/L (46-116) Aspartate Amino Transferase (AST) 15 U/L (13-40) Total Bilirubin 0.6 mg/dL (0.2-1.0) HgA1c, TSH Test 09/15/24 18:04 09/15/24 19:08 Hemoglobin A1c 7.1 % A1C (<5.7) H Thyroid Stimulating Hormone (TSH) 2.64 uIU/mL (0.55-4.78) Urinalysis Test 09/16/24 01:40 Urine Color Light-yellow (Yellow) Urine Clarity Clear (Clear) Urine pH 5.0 (5.0-9.0) Urine Specific [place] 1.027 (1.001-1.035) Urine Protein Trace (Negative) H Urine Ketones Negative (Negative) Urine Blood Negative /uL (Negative) Urine Nitrite Negative (Negative) Urine Bilirubin Negative (Negative) Urine Urobilinogen Normal mg/dL (Negative) Urine Leukocyte Esterase Negative /uL (Negative) Urine RBC 1 /hpf (0 - 3) Urine Microscopic WBC < 1 /HPF (0-3) Urine Squamous Epithelial Cells None seen /hpf (<5) Urine Bacteria None seen /hpf (None Seen) Urine Glucose 4+ mg/dL (Normal) H Labs and/or images reviewed: Labs reviewed by me, Image(s) reviewed by me Assessment/Plan Assessment/Plan # Acute Left-sided weakness rule out TIA consult for Dr. Gonzalez #History of prostate cancer #chronic kidney failure CKD stage IIIB # history of previous stroke, # diabetes mellitus well controlled, HGB A1c around seven on home Lantus # fairly controlled essential hypertension # paroxysmal atrial fibrillation, CHADS-VASc score of six, apparently not on anticoagulants needs further evaluation # mild dehydration Status post IV gentle fluid rehydration. #ACS ruled out trops -ve telemetry and EKG cxr pending #Acute Hemorrhagic Stroke Ruled out #likely Generalized deconditioning #generalized anxiety/ depression on SSRI CT head negative Carotid ultrasound shows 50-69 % right ICA stenosis Plan discussed with: Patient Date of Service: Sep 16, 2024 Billing Provider: EMEKA NELSON MD Common Visit Codes: [id number] INP/OBS CARE(HIGH) EMEKA NELSON MD Sep 16, 2024 13:15
--- NOTE | 2024-09-16 19:43 | DVHSR ---
APPROVED REPORT EXAM: LIMITED Two-dimensional and M-mode echocardiogram with Doppler and color Doppler. Blood Pressure: 135/63 mmHg INDICATION rule out structural heart disease RISK FACTORS Height: 5'10, Weight: 166 DIMENSIONS LVDd4.8 (3.8-5.7cm)LA (2D)4.9 (1.9-4.0cm)Aortic Root (2.0-3.7cm) LVDs3.2 (2.5-4.0cm)LA (MM) (1.9-4.0cm)Aortic Cusp Exc (1.5-2.0cm) EF (%) 60.0 (55-70%)Rt. Atrium4.3 (1.9-4.0cm)Asc. Aorta cm IVSd1.0 (0.7-1.1cm)RV (D) (1.8-2.4cm) PWd1.2 (0.7-1.1cm) Mitral Valve MitralMitral Stenosis E wave0.67m/sMV Mean GR.mmHg A wave0.86m/sMV Peak GR.102mmHg E/A ratio0.82D MVAcm2 DECEL [id number] 1/2 Tim[place] Aortic Valve Aortic ValveAortic Stenosis V11.02m/Jonnie Mean GR.8mmHg V21.90m/Jonnie Peak GR.14mmHg LVOT Diameter1.9 (1.8-2.4cm)Doppler AVA1.52cm2 Tricuspid Valve TR Velocity2.74m/s [id number] Other Information Technically limited study due to patient position.body habitus. Conclusion MILD LVH AND MILD LV DIASTOLIC DYSFUNCTION LV EF IS 65% AND IS NORMAL HEAVILY CALCIFIED AORTIC LEAFLETS AORTIC VALVE AREA IS 1,56 CM SQUARE AND IS MODERATELY REDUCED MODERATE DEGREE AORTIC STENOSIS NORMAL MV,TV AND PV NO EFFUSION NORMAL RV FUNCTION
[2024-09-16] MEDS ORDERED: DEXTROSE (50%) 50ML SYRG IV PRN (23:00)
[2024-09-16] MEDS: ACCU-CHEK COMFORT CURVE STRIP VI SCH (23:36)
[2024-09-16] MEDS: InsuLIN REG 1unit/0.01ml Soln (100units/ml) SC SCH (23:36)
[2024-09-17 01:00] VITALS: BP 133/60; PULSE 62; RESP 17; TEMP 98; O2SAT 95
[2024-09-17 05:00] VITALS: BP 142/65; PULSE 63; RESP 18; TEMP 98.4; O2SAT 96
[2024-09-17] MEDS: InsuLIN REG 1unit/0.01ml Soln (100units/ml) SC SCH (06:05)
[2024-09-17 07:07] LABS: PSA Free 0.04 ng/mL; Prostate Specific Antigen 0.2 ng/mL (0.0-4.0)
[2024-09-17 08:00] VITALS: PULSE 50; PULSE 66; RESP 18; O2SAT 98
[2024-09-17 09:01] VITALS: BP 147/66; PULSE 67; RESP 18; TEMP 97; O2SAT 96
--- NOTE | 2024-09-17 11:27 | DVHPN2 ---
Reviewed: Care Plan, H&P, Labs, Medications, Previous Orders, Radiology Changes from previous H/P or p: No Changes Eyes: No Pain, No Vision change, No Conjunctivae inflammation, No Eyelid inflammation, No Other, No Redness ENT: No Ear pain, No Ear discharge, No Nose pain, No Nose discharge, No Nose congestion, No Mouth pain, No Mouth swelling, No Throat pain, No Throat swelling, No Other Cardiovascular: No Chest Pain, No Palpitations, No Orthopnea, No Paroxysmal Noc. Dyspnea, No Edema, No Lt Headedness, No Other Respiratory: No Cough, No Dry, No Shortness of breath, No SOB with excertion, No Wheezing, No Hemoptysis, No Pleuritic Pain, No Sputum, No Other Gastrointestinal: No Nausea, No Vomiting, No Abdominal Pain, No Diarrhea, No Constipation, No Melena, No Hematochezia, No Other Genitourinary: No Dysuria, No Frequency, No Incontinence, No Hematuria, No Retention, No Other Musculoskeletal: other Skin: No Rash, No Lesions, No Jaundice, No Bruising, No Other Objective Vitals Vital Signs Date Time Temp Pulse Resp B/P (MAP) Pulse Ox O2 Delivery O2 Flow Rate FiO2 09/17/24 10:20 147/66 09/17/24 09:01 97.0 67 18 96 97.0 09/16/24 20:00 Room Air* 0 21 Intake/Output Intake and Output 09/17/24 07:00 Intake Total 590 ml Balance 590 ml Intake Oral 590 ml # Voids 4 # Bowel Movements 1 Medications Current Medications Medications Dose Ordered Sig/Carlos Route Start Time Stop Time Status Last Admin Dose Admin Ondansetron HCl 4 mg Q4HP PRN IV 09/15/24 21:00 Docusate Sodium 100 mg BIDPRN PRN PO 09/15/24 21:00 Acetaminophen 650 mg Q6HP PRN PO 09/15/24 21:00 Morphine Sulfate 2 mg Q4HPRN PRN IV 09/15/24 21:00 Nitroglycerin 0.4 mg Q5MINP PRN SL 09/15/24 21:00 Morphine Sulfate 2 mg Q30M PRN IV 09/15/24 21:00 Aspirin 81 mg DAILY PO 09/16/24 10:00 09/17/24 10:21 81 MG Atorvastatin Calcium 40 mg HS PO 09/15/24 22:00 09/16/24 21:43 40 MG Sertraline HCl 25 mg DAILY PO 09/16/24 10:00 09/17/24 10:21 25 MG Lisinopril 20 mg DAILY PO 09/16/24 10:00 09/17/24 10:20 20 MG Hydralazine HCl 10 mg Q6HR PRN IV 09/16/24 01:30 Diagnostic Test (Pha) 1 strip ACHS 09/16/24 23:00 09/17/24 06:05 1 STRIP Insulin Human Regular HS SC 09/16/24 23:00 Insulin Human Regular AC SC 09/17/24 07:00 Dextrose 50 ml UD PRN IV 09/16/24 23:00 Multivitamins/ Minerals 1 tab DAILY PO 09/18/24 10:00 Enteral Nutritional Formula 28.8 gm DAILY PO 09/18/24 10:00 Laboratory Results Laboratory Tests 09/16/24 05:18 Urinalysis Test 09/16/24 01:40 Urine Color Light-yellow (Yellow) Urine Clarity Clear (Clear) Urine pH 5.0 (5.0-9.0) Urine Specific [place] 1.027 (1.001-1.035) Urine Protein Trace (Negative) H Urine Ketones Negative (Negative) Urine Blood Negative /uL (Negative) Urine Nitrite Negative (Negative) Urine Bilirubin Negative (Negative) Urine Urobilinogen Normal mg/dL (Negative) Urine Leukocyte Esterase Negative /uL (Negative) Urine RBC 1 /hpf (0 - 3) Urine Microscopic WBC < 1 /HPF (0-3) Urine Squamous Epithelial Cells None seen /hpf (<5) Urine Bacteria None seen /hpf (None Seen) Urine Glucose 4+ mg/dL (Normal) H Labs and/or images reviewed: Labs reviewed by me, Image(s) reviewed by me Assessment/Plan Assessment/Plan # Acute Left-sided weakness possible TIA, symptoms now resolved completely, consult for Dr. Gonzalez #History of prostate cancer #chronic kidney failure CKD stage IIIB # history of previous strokes x 4; patient stopped baby aspirin two months back and he thinks that is the reason he has a TIA now, advised to resume aspirin # diabetes mellitus well controlled, HGB A1c 7.0 on home Lantus # fairly controlled essential hypertension # paroxysmal atrial fibrillation, CHADS-VASc score of six, apparently not on anticoagulants needs further evaluation # mild dehydration Status post IV gentle fluid rehydration. #ACS ruled out trops -ve telemetry and EKG cxr pending #Acute Hemorrhagic Stroke Ruled out #likely Generalized deconditioning #generalized anxiety/ depression on SSRI CT head negative Carotid ultrasound shows 50-69 % right ICA stenosis Plan discussed with: Patient My Orders Orders - EMEKA NELSON MD Procedure Category Date Status Time * Neurology Consult CONS 09/16/24 Transmitted 13:11 Cardiac DIET 09/16/24 Transmitted Diet-2gna,Lofat,Lochol Lunch Cleanse Wound With MICHAEL 09/16/24 In Process Wound Clean 11:05 Date of Service: Sep 17, 2024 Billing Provider: EMEKA NELSON MD Common Visit Codes: [id number] INP/OBS CARE(HIGH) EMEKA NELSON MD Sep 17, 2024 11:26
--- NOTE | 2024-09-17 11:31 | DVHDS2 ---
Discharge Summary Date of Admission Sep 15, 2024 at 20:56 Date of Discharge: Sep 17, 2024 Admitting Diagnosis Weakness of left upper and lower extremities Wounds: None Labs/Diagnostic Data: Laboratory Results Test 09/17/24 06:03 09/16/24 05:18 09/16/24 01:40 09/15/24 21:51 POC Glucose 130 mg/dl (70-106) White Blood Count 5.0 10^3/uL (4.4-10.8) Red Blood Count 4.19 10^6/uL (4.5-5.90) Hemoglobin 12.7 g/dL (13.5-17.5) Hematocrit 37.5 % (41.0-53.0) Mean Corpuscular Volume 89.5 fL (80.0-100.0) Mean Corpuscular Hemoglobin 30.4 pg (28.0-32.0) Mean Corpuscular Hemoglobin Concent 34.0 g/dL (32.0-36.0) Red Cell Distribution Width 14.8 % (11.8-14.3) Platelet Count 145 10^3/uL (140-450) Mean Platelet Volume 7.3 fL (6.9-10.8) Neutrophils (%) (Auto) 65.6 % (37.0-80.0) Lymphocytes (%) (Auto) 21.3 % (10.0-50.0) Monocytes (%) (Auto) 9.7 % (0.0-12.0) Eosinophils (%) (Auto) 2.9 % (0.0-7.0) Basophils (%) (Auto) 0.5 % (0.0-2.0) Neutrophils # (Auto) 3.3 10 ^3/uL (1.6-8.6) Lymphocytes # (Auto) 1.1 10 ^3/uL (0.4-5.4) Monocytes # (Auto) 0.5 10 ^3/uL (0-1.3) Eosinophils # (Auto) 0.1 10 ^3/uL (0-0.8) Basophils # (Auto) 0 10 ^3/uL (0-0.2) Nucleated Red Blood Cells 0.7 % Sodium Level 146 mmol/L (136-145) Potassium Level 3.8 mmol/L (3.5-5.1) Chloride Level 116 mmol/L (98-107) Carbon Dioxide Level 24 mmol/L (20-31) Anion Gap 6 (5-15) Blood Urea Nitrogen 22 mg/dL (9-23) Creatinine 1.19 mg/dL (0.700-1.30) Glomerular Filtration Rate Calc 60 mL/min (>90) BUN/Creatinine Ratio 18.5 (10.0-20.0) Serum Glucose 106 mg/dL (74-106) Calcium Level 9.7 mg/dL (8.7-10.4) Total Bilirubin 0.6 mg/dL (0.2-1.0) Aspartate Amino Transferase (AST) 15 U/L (13-40) Alanine Aminotransferase (ALT) 19 U/L (7-40) Alkaline Phosphatase 88 U/L (46-116) Total Protein 6.0 g/dL (5.7-8.2) Albumin 3.9 g/dL (3.2-4.8) Triglycerides Level 75 mg/dL (< 150) Cholesterol Level 154 mg/dL (< 200) LDL Cholesterol 69 mg/dL (< 100) HDL Cholesterol 65 mg/dL (40-59) Urine Color Light-yellow (Yellow) Urine Clarity Clear (Clear) Urine pH 5.0 (5.0-9.0) Urine Specific [place] 1.027 (1.001-1.035) Urine Protein Trace (Negative) Urine Ketones Negative (Negative) Urine Blood Negative /uL (Negative) Urine Nitrite Negative (Negative) Urine Bilirubin Negative (Negative) Urine Urobilinogen Normal mg/dL (Negative) Urine Leukocyte Esterase Negative /uL (Negative) Urine RBC 1 /hpf (0 - 3) Urine Microscopic WBC < 1 /HPF (0-3) Urine Squamous Epithelial Cells None seen /hpf (<5) Urine Bacteria None seen /hpf (None Seen) Urine Glucose 4+ mg/dL (Normal) Free Prostate Specific Antigen 0.04 ng/mL (N/A) Percent Free Prostate Specific Ag 20.0 % (.) Prostate Specific Antigen Total 0.2 ng/mL (0.0-4.0) Test 09/15/24 19:08 09/15/24 18:04 Troponin I High Sensitivity 23 ng/L (</=54) Thyroid Stimulating Hormone (TSH) 2.64 uIU/mL (0.55-4.78) Hemoglobin A1c 7.1 % A1C (<5.7) Other Laboratory Tests 09/16/24 05:18 Brief Hx & Hospital Course: 3-year-old male with a history of stroke x4 in the past diabetes history of prostate cancer treated with radiation therapy paroxysmal AFib anxiety depression CKD came in complaining of weakness of the left upper and lower extremities. CT head negative carotid ultrasound negative A1c 7.0 mild dehydration resolved with IV fluids hemorrhagic stroke ruled out. Patient says his symptoms now have completely resolved and wants to go home. He also says he has stopped baby aspirin two months ago and he feels the TIA now his because he stopped the aspirin. Advised to resume aspirin. Neurology consult was placed Dr. vicente but the patient is requesting to be discharged as his grandson an RN is coming to his home today from another state Consults/Reason for consult Neurology consult pending but patient wants to go home Operations or Procedures CT head Carotid ultrasound Condition at Discharge: Fair Final Diagnosis/Problems List # Acute Left-sided weakness possible TIA, symptoms now resolved completely, consult for Dr. 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 #ACS ruled out trops -ve telemetry and EKG cxr pending #Acute Hemorrhagic Stroke Ruled out #likely Generalized deconditioning #generalized anxiety/ depression on SSRI CT head negative Carotid ultrasound shows 50-69 % right ICA stenosis Discharge Disposition: Home Discharge Instruct/Medications Diet: Cardiac 2g Na,low cholest Activity: Light activity Follow Up/Referral: Follow up with your primary Dr in one week Resume all home medications including baby aspirin Medications: none 35 (Time taken for discharge summary 35 minutes) Discharge Statement: "Patient was advised to return to the ER or call 911 if any headaches, dizziness, shortness of breath, chest pain, abdominal pain, bleeding, fevers, or worsening of medical condition. Patient was counseled about treatment plan, medications, possible side effects, patientverbalized understanding. All questions were answered to the best of my ability. This discharge took greater then 30 minutes in planning, reviewing documentation, counseling the patient, and discussing with other team members." ASSESSMENT ASSESSMENT Hospital Course Improved Assessment # Acute Left-sided weakness possible TIA, symptoms now resolved completely, consult for Dr. 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 #ACS ruled out trops -ve telemetry and EKG cxr pending #Acute Hemorrhagic Stroke Ruled out #likely Generalized deconditioning #generalized anxiety/ depression on SSRI CT head negative Carotid ultrasound shows 50-69 % right ICA stenosis Date of Service: Sep 17, 2024 Billing Provider: EMEKA NELSON MD Common Visit Codes: [id number] DISCH DAY >30min EMEKA NELSON MD Sep 17, 2024 11:31
[2024-09-17 13:30] VITALS: BP 136/75; PULSE 57; RESP 17; TEMP 97.7; O2SAT 95
[2024-09-18] MEDS ORDERED: Juven Fruit Punch Powder PACKET 28.8gm PO SCH (10:00)
[2024-09-18] MEDS ORDERED: MULTIPLE VITAMINS W/ MINERALS TAB PO SCH (10:00)
== END 2024-09-17 14:15 | disposition home or self-care (01) | DRG 69 ==
LOC: EDSEX 16:37 → EDBD 16:37 → ER 16:37 → OVERFLOW 20:56 → TELE-WESTW 23:54
PROVIDERS: ATTEND Emergency Medicine
DX: G45.9 Transient cerebral ischemic attack, unspecified (principal); N18.32 Chronic kidney disease, stage 3b; I48.0 Paroxysmal atrial fibrillation; E86.0 Dehydration; E11.22 Type 2 diabetes mellitus with diabetic chronic kidney disease; F32.A Depression, unspecified; F41.1 Generalized anxiety disorder; I12.9 Hypertensive chronic kidney disease with stage 1 through stage 4 chronic kidney disease, or unspecified chronic kidney disease; G90.89 Other disorders of autonomic nervous system; Z90.49 Acquired absence of other specified parts of digestive tract; Z85.46 Personal history of malignant neoplasm of prostate; Z79.899 Other long term (current) drug therapy; Z86.73 Personal history of transient ischemic attack (TIA), and cerebral infarction without residual deficits; Z92.3 Personal history of irradiation
CPT/HCPCS: 36415; 70450; 71045; 80048; 80053; 80061; 81001; 82962; 83036; 84154; 84443; 84484; 85025; 93005; 93306; 93886; 96360; 97163; G0378

== ENCOUNTER 2024-09-29 16:29 | Inpatient (IN) | payer MEDICARE, OTHER ==
[~2024-09-29] VITALS: Ht 177.8 cm; Wt 94.7 kg
[~2024-09-29 16:29] MED LIST changes: +GLIP5TAB21 PO; +HYDR25TA5 PO; +LISI20TA56 PO; +LOSA-535 PO; +METO25TA93 PO
--- NOTE | 2024-09-29 16:47 | ED.PDOC ---
HPI Comments This is a 83 year old male brought in by son-in-law presenting to the ED with chief complaint of generalized weakness. Son-in-law reports that the patient has been experiencing generalized weakness with associated dizziness that has worsened since 11am this morning, not improving over time. Son states that he has been declining over the past few days. Patient relays that he has been unable to stand on his own when normally he is able to without assistance. Patient denies any N/V/D, abdominal pain, SOB, chest pain, headache, or numbness. Patient was bradycardic at arrival. Patient has a history of hypertension as well as chronic renal failure and others. Chief Complaint: General Weakness Time Seen by MD: 16:44 Primary Care Provider: UNKNOWN Reviewed Notes: Nurses Notes, Medications, Allergies Allergies: Coded Allergies: NO KNOWN ALLERGIES (Unverified , 02/04/24) Home Meds Active Scripts Metoprolol Succinate (Toprol Xl) 50 Mg Tab, 12.5 MG PO DAILY for 30 Days, #8 TAB Prov:LILIYA AGUIRRE RESIDENT 02/06/24 Reported Medications Glipizide (Glipizide) 5 Mg Tab, 1 TAB PO BID 09/16/24 Losartan Potassium (Losartan Potassium) 100 Mg Tab, 1 TAB PO DAILY 09/16/24 Lisinopril (Lisinopril) 20 Mg Tab, 1 TAB PO DAILY 09/16/24 Hctz (Hydrochlorothiazide) 25 Mg Tab, 1 TAB PO DAILY 09/16/24 Metoprolol Succinate (Metoprolol Succinate Er) 25 Mg Tab, 0.5 TAB PO DAILY 09/16/24 Insulin Glargine (Lantus Solostar) 100 Unit/Ml Inj, SC 02/04/24 Cholecalciferol (VITAMIN D3) 2,000 Unit Tab, 1 TAB PO DAILY, #30 TAB 5 Refills 02/04/24 Aspirin (Aspir-81) 81 Mg Tab, 1 TAB PO DAILY, #30 TAB 5 Refills 02/04/24 Glipizide (Glipizide) 10 Mg Tab, 1 TAB PO BID 02/04/24 Dapagliflozin Propanediol (Dapagliflozin Propanediol) 10 Mg Tab, 1 TAB PO DAILY 02/04/24 Atorvastatin Calcium (ATORVASTATIN CALCIUM) 40 Mg Tab, 40 MG PO DAILY 02/04/24 Amiodarone HCl (Amiodarone HCl) 200 Mg Tab, 200 MG PO BID 02/04/24 Information Source: Patient, Relative (Son-In-Law) Mode of Arrival: Wheelchair Severity: Moderate Timing: Days Duration: Since onset Prehospital treatment: None Cardiac Risk Factors: None PE Risk Factors: None Past Medical History PAST MEDICAL HISTORY: Cancer, CKF, CVA, DM, HTN Surgical History: Cholecystectomy, Hernia Repair, Tonsillectomy Family History Family History: Reviewed,noncontributory to illness Social History Smoker: Non-Smoker Alcohol: Denies ETOH Use Drugs: Denies Drug Use Lives In: Home Constitutional: reports: fatigue, weakness; denies: chills, diaphoresis, fever, malaise, sweats, others EENTM: denies: blurred vision, double vision, ear bleeding, ear discharge, ear drainage, ear pain, ear ringing, eye pain, eye redness, hearing loss, mouth pain, mouth swelling, nasal discharge, nose bleeding, nose congestion, nose pain, photophobia, tearing, throat pain, throat swelling, voice changes, others Respiratory: denies: cough, hemoptysis, orthopnea, SOB at rest, shortness of breath, SOB with excertion, stridor, wheezing, others Cardiovascular: denies: chest pain, dizzy spells, diaphoresis, Dyspnea on exertion, edema, irregular heart beat, left arm pain, lightheadedness, palpitations, PND, syncope, others Gastrointestinal: denies: abdomen distended, abdominal pain, blood streaked bowels, constipated, diarrhea, dysphagia, difficulty swallowing, hematemesis, melena, nausea, poor appetite, poor fluid intake, rectal bleeding, rectal pain, vomiting, others Genitourinary: denies: burning, dysuria, flank pain, frequency, hematuria, incontinence, penile discharge, penile sore, pain, testicle pain, testicle swelling, urgency, others Neurological: reports: dizziness; denies: fainting, headache, left sided numbness, left sided weakness, numbness, paresthesia, pre-existing deficit, right sided numbness, right sided weakness, seizure, speech problems, tingling, tremors, weakness, others Musculoskeletal: denies: back pain, gout, joint pain, joint swelling, muscle pain, muscle stiffness, neck pain, others Integumetry: denies: bruises, change in color, change in hair/nails, dryness, laceration, lesions, lumps, rash, wounds, others Allergic/Immunocompromised: denies: Difficulty Healing, Frequent Infections, Hives, Itching, others Hematologic/Lymphatic: denies: anemia, blood clots, easy bleeding, easy bruising, swollen glands, others Endocrine: denies: excessive hunger, excessive sweating, excessive thirst, excessive urination, flushing, intolerance to cold, intolerance to heat, unexplained weight gain, unexplained weight loss, others Psychiatric: denies: anxiety, bipolar disorder, depression, hopeless, panic disorder, schizophrenia, sleepless, suicidal, others All Other Systems: Reviewed and Negative Physical Exam General Appearance: Moderate Distress (Patient displays moderate distress due to generalized weakness concerns. Patient was pleasant calm but looks tired.), Normal HEENT: Normal ENT Inspection, Pharynx Normal, TMs Normal Neck: Full Range of Motion, Non-Tender, Normal, Normal Inspection Respiratory: Chest Non-Tender, Lungs Clear, No Accessory Muscle Use, No Respiratory Distress, Normal Breath Sounds Cardiovascular: Bradycardia, No Edema, No JVD, No Murmur, No Gallop, Normal Peripheral Pulses Breast Exam: Deferred Gastrointestinal: No Organomegaly, Non Tender, No Pulsatile Mass, Normal Bowel Sounds, Soft Genitalia: Deferred Pelvic: Deferred Rectal: Deferred Extremities: Normal capillary refill, No pedal edema Neurologic: Alert Cerebellar Function: NOT DONE Reflexes: NOT DONE Skin: Dry, Normal Color, Warm Lymphatic: No Adenopathy Was a procedure done? Was a procedure done?: No CP Differential Dx Differential Diagnosis: A-fib, Anxiety / Panic Attack, Atrial Dysrhythmia, AV Block 1st Degree, PA, Other (Viral illness, electrolyte abnormality, sepsis, acute coronary concern, sick sinus syndrome) X-Ray, Labs, Meds, VS Vital Signs Date Time Temp Pulse Resp B/P (MAP) Pulse Ox O2 Delivery O2 Flow Rate FiO2 09/29/24 18:35 97.6 50 15 148/62 (90) 96 97.6 09/29/24 18:35 20 15 96 Room Air 09/29/24 16:48 55 09/29/24 16:35 98.1 59 18 126/66 (86) 92 98.1 Lab Test 09/29/24 19:59 09/29/24 18:54 09/29/24 17:59 6/20/25 16:56 Range/Units Troponin I High Sensitivity 10 10 11 </=54 ng/L Urine Color Light-yellow Yellow Urine Clarity Clear Clear Urine pH 5.0 5.0-9.0 Urine Specific [place] 1.023 1.001-1.035 Urine Protein Negative Negative Urine Ketones Negative Negative Urine Blood Negative Negative /uL Urine Nitrite Negative Negative Urine Bilirubin Negative Negative Urine Urobilinogen Normal Negative mg/dL Urine Leukocyte Esterase Negative Negative /uL Urine RBC <1 0 - 3 /hpf Urine Microscopic WBC < 1 0-3 /HPF Urine Squamous Epithelial Cells Few <5 /hpf Urine Bacteria None seen None Seen /hpf Urine Glucose 4+ H Normal mg/dL White Blood Count 6.0 4.4-10.8 10^3/uL Red Blood Count 4.57 4.5-5.90 10^6/uL Hemoglobin 14.0 13.5-17.5 g/dL Hematocrit 40.8 L 41.0-53.0 % Mean Corpuscular Volume 89.3 80.0-100.0 fL Mean Corpuscular Hemoglobin 30.7 28.0-32.0 pg Mean Corpuscular Hemoglobin Concent 34.4 32.0-36.0 g/dL Red Cell Distribution Width 14.8 H 11.8-14.3 % Platelet Count 218 140-450 10^3/uL Mean Platelet Volume 7.6 6.9-10.8 fL Neutrophils (%) (Auto) 74.0 37.0-80.0 % Lymphocytes (%) (Auto) 15.3 10.0-50.0 % Monocytes (%) (Auto) 7.5 0.0-12.0 % Eosinophils (%) (Auto) 2.4 0.0-7.0 % Basophils (%) (Auto) 0.8 0.0-2.0 % Neutrophils # (Auto) 4.4 1.6-8.6 10 ^3/uL Lymphocytes # (Auto) 0.9 0.4-5.4 10 ^3/uL Monocytes # (Auto) 0.4 0-1.3 10 ^3/uL Eosinophils # (Auto) 0.1 0-0.8 10 ^3/uL Basophils # (Auto) 0 0-0.2 10 ^3/uL Nucleated Red Blood Cells 0.1 % Sodium Level 142 136-145 mmol/L Potassium Level 4.1 3.5-5.1 mmol/L Chloride Level 109 H 98-107 mmol/L Carbon Dioxide Level 24 20-31 mmol/L Anion Gap 9 5-15 Blood Urea Nitrogen 43 H 9-23 mg/dL Creatinine 1.36 H 0.700-1.30 mg/dL Glomerular Filtration Rate Calc 51 >90 mL/min BUN/Creatinine Ratio 31.6 H 10.0-20.0 Serum Glucose 121 H 74-106 mg/dL Lactic Acid Level 0.8 0.4-2.0 mmol/L Calcium Level 10.8 H 8.7-10.4 mg/dL Total Bilirubin 0.7 0.2-1.0 mg/dL Aspartate Amino Transferase (AST) 21 <34 U/L Alanine Aminotransferase (ALT) 23 7-40 U/L Alkaline Phosphatase 101 46-116 U/L B-Type Natriuretic Peptide 71.31 0-100 pg/mL Total Protein 7.3 5.7-8.2 g/dL Albumin 4.7 3.2-4.8 g/dL Lipase 28 12-53 U/L Test 09/29/24 16:38 Range/Units POC Glucose 146 H 70-106 mg/dl X-Ray, Labs, Meds, VS Comment All studies performed the ED were evaluated by me personally. Patient displays a progressive renal concerns that may place him in a need for dialysis. Cardiac markers were unremarkable, but urinalysis confirmed glucose content indicative of renal disease. EKG revealed a sinus rhythm with a rate of 55. Prolonged ID interval, low voltage in the precordial leads, probable anterior septal infarct that is old, minimal ST depressions in anterior lateral leads with a ID interval of 237 and a QT interval of 474. This patient will require a nephrology consult to assess his what appears to be progressing renal concerns as well as a cardiac consultation to address what may be sick sinus syndrome. Patient may require a pacemaker. Time of 1ST Reevaluation: 21:00 Reevaluation 1ST: Improved Consultation: PCP, Cardiology, Other (Nephrology) Patient Education/Counseling: Diagnosis, Treatment Family Education/Counseling: Diagnosis, Treatment, No Family Present SEPSIS Sepsis Screen Recent Procedure: No On Antibiotic Therapy: No Respiratory Rate >20: No Heart Rate >90: No Temp<36 C (96.8 F) or >38.3 C: No SBP <90 or MAP <65 mmHG: No New Acute Mental Status Change: No Is the patient on CPAP, BIPAP,: No IV fluid challenge completed?: No Physician Orders Sodium Chloride 0.9% (09/29/24 16:45) Heplock Iv (09/29/24 ) Blood Culture (09/29/24 16:37) Continuous Ekg Monitoring 08,12,16,20,00,04 (09/29/24 16:37) Electrocardigram (09/29/24 17:37) Electrocardigram (09/29/24 19:37) Chest Portable (09/29/24 16:37) Vital Signs Date Time Temp Pulse Resp B/P (MAP) Pulse Ox O2 Delivery O2 Flow Rate FiO2 09/29/24 18:35 97.6 50 15 148/62 (90) 96 97.6 09/29/24 18:35 20 15 96 Room Air 09/29/24 16:48 55 09/29/24 16:35 98.1 59 18 126/66 (86) 92 98.1 Laboratory Tests Test 09/29/24 16:56 Lactic Acid Level 0.8 mmol/L (0.4-2.0) White Blood Count 6.0 10^3/uL (4.4-10.8) Departure 1 Departure Time of Disposition: 21:01 Impression: Primary Impression: Weakness Additional Impressions: End stage renal disease Sinus bradycardia Disposition: ADMITTED INPATIENT Condition: Fair Discharged With: Self, Relative Critical Care Note Critical Care Time?: No Stability Stability form required: No Heart Score Heart Score: Heart Score Response (Comments) Value History Moderate Suspicious 1 EKG Normal 0 Age >65 2 Risk Factors >3 or Hx ASHD 2 Troponin Normal limit 0 Total 5 I personally scribed for HARJIT MCCALL PAC ([email or web address]) on 09/29/24 at 16:47. Electronically submitted by Ryne Hathaway ([email or web address]). HARJIT MCCALL PAC Sep 29, 2024 16:47
--- NOTE | 2024-09-29 16:49 | ECG ---
[facility] Test Date: 2024-09-29 Test Time: 16:48:03 Pat Name: ALLYSSA GARSIA Department: ER Room: Gender: M [employer] Supervisor: [place] : 1940 Requested By: HARJIT MCCALL Order Number: [id number] Reading MD: Sam Tatum Measurements Intervals Luana Rate: 55 P: 40 OK: 237 QRS: 62 QRSD: 94 T: 55 QT: 474 QTc: 454 Interpretive Statements Sinus rhythm Prolonged OK interval Low voltage, precordial leads Probable anteroseptal infarct, old Minimal ST depression, anterolateral leads Minimal ST elevation, inferior leads Electronically Signed On 09-29-2024 21:20:22 PDT by Sam Tatum Please click the below link to view image of tracing.
[2024-09-29 17:25] LABS: Basophils # (auto) 0 10 ^3/uL (0-0.2); Basophils % (auto) 0.8 % (0.0-2.0); Eosinophils # (auto) 0.1 10 ^3/uL (0-0.8); Eosinophils % (auto) 2.4 % (0.0-7.0); Hematocrit 40.8 % (41.0-53.0); Lymphocytes # (auto) 0.9 10 ^3/uL (0.4-5.4); Lymphocytes % (auto) 15.3 % (10.0-50.0); Mean Corpuscular Hemoglobin 30.7 pg (28.0-32.0); Mean Corpuscular Hgb Conc. 34.4 g/dL (32.0-36.0); Mean Corpuscular Volume 89.3 fL (80.0-100.0); Monocytes # (auto) 0.4 10 ^3/uL (0-1.3); Monocytes % (auto) 7.5 % (0.0-12.0); Neutrophils # (auto) 4.4 10 ^3/uL (1.6-8.6); Nucleated Red Blood Cells % 0.1 %; Platelet Count (auto) 218 10^3/uL (140-450); Red Blood Cells 4.57 10^6/uL (4.5-5.90); Red Cell Distribution Width 14.8 % (11.8-14.3)
--- NOTE | 2024-09-29 17:38 | DVH ---
CHEST RADIOGRAPH Indication: Shortness of breath Technique: Single frontal view of the chest was obtained COMPARISON: XY CHEST XRAY 1 VIEW on DOS: 09/15/24, XY CHEST PORTABLE on DOS: 02/05/24 FINDINGS: Lines and Tubes: None Lungs: Clear Pleura: No effusion. No pneumothorax. Cardiomediastinal contours: Unremarkable Bones: Unremarkable IMPRESSION: 1. No acute disease.
[2024-09-29 17:44] LABS: Alanine Aminotransferase 23 U/L (7-40); Albumin 4.7 g/dL (3.2-4.8); Alkaline Phosphatase 101 U/L (46-116); Anion Gap 9 (5-15); Aspartate Aminotransferase 21 U/L (<34); BUN/Creatinine Ratio 31.6 (10.0-20.0); Bilirubin, Total 0.7 mg/dL (0.2-1.0); Carbon Dioxide 24 mmol/L (20-31); Potassium 4.1 mmol/L (3.5-5.1); Sodium 142 mmol/L (136-145); Total Protein 7.3 g/dL (5.7-8.2)
[2024-09-29 17:49] LABS: Blood Urea Nitrogen 43 mg/dL (9-23); Calcium 10.8 mg/dL (8.7-10.4); Chloride 109 mmol/L (98-107); Glucose 121 mg/dL (74-106)
[2024-09-29 17:59] LABS: Lipase 28 U/L (12-53)
[2024-09-29] MEDS: SODIUM CHLORIDE 0.9% 1,000 ML IV ONE (18:58)
[2024-09-29 19:11] LABS: Urine Bacteria None Seen /hpf (None Seen)
[2024-09-29 19:30] LABS: Urine Blood Negative /uL (Negative); Urine Clarity Clear (Clear); Urine Color Light-Yellow (Yellow); Urine Protein, UAD Negative (Negative); Urine Specific Gravity 1.023 (1.001-1.035); Urine Squamous Epithelial Cell FEW /hpf (<5); Urine Urobilinogen Normal (Negative); Urine WBC < 1 /HPF (0-3)
[2024-09-29] MEDS ORDERED: ONDANSETRON HCL 4 MG/2 ML VIAL IV PRN (22:30)
[2024-09-29] MEDS ORDERED: DEXTROSE (50%) 50ML SYRG IV PRN (22:30)
[2024-09-29] MEDS ORDERED: DOCUSATE SOD 100 MG CAP PO PRN (22:30)
[2024-09-29] MEDS ORDERED: ACETAMINOPHEN 325 MG TAB PO PRN (22:30)
[2024-09-29] MEDS ORDERED: HYDROcodone-ACET 5/325MG TAB PO PRN (22:30)
--- NOTE | 2024-09-29 23:34 | DVHHP2 ---
History of Present Illness Reason for Visit: Generalized weakness History of Present Illness The patient is a 83-year-old male with multiple past medical history including prostate cancer, CKF, CVA, diabetes mellitus, and hypertension who presented to [facility] ED with complaint of generalized weakness. Daughter reports that the patient has been experiencing declining, unable to stand on his own, generalized weakness with associated dizziness that has worsening with no improvement over time. Patient was seen and evaluated in the ED, laboratory data shows WBC 6.0, platelets 218, sodium 142, potassium 4.1, BUN 43, creatinine 1.36, glucose 121, lipase 28, BNP 71.31, blood pressure 146/58, heart rate 53, temperature 97.8 F, O2 saturation 96% on room air. Chest x-ray showed no acute disease. Please see medication orders section in the computer. On my assessment, daughter at bedside, patient denied chest pain, no headache, no dizziness, no shortness of breath, no nausea, no vomiting, no fever, no chills. Patient was admitted for further evaluation and medical management. Past Medical History Prostate cancer, CKF, CVA, DM, HTN, HLD, Depression Past Surgical History Cholecystectomy, Hernia Repair, Tonsillectomy Family History Reviewed, noncontributory to the management of this case. Past Social History The patient lives at home, denies smoking, alcohol or illicit drugs abuse. Review of Systems Constitutional: Yes: Weakness, Other (Fatigue); No: Fever, Chills, Sweats, Malaise Eyes: No: Pain, Vision change, Conjunctivae inflammation, Eyelid inflammation, Other, Redness ENT: No: Ear pain, Ear discharge, Nose pain, Nose discharge, Nose congestion, Mouth pain, Mouth swelling, Throat pain, Throat swelling, Other Respiratory: No: Cough, Dry, Shortness of breath, SOB with excertion, Wheezing, Hemoptysis, Pleuritic Pain, Sputum, Wheezing, Other Cardiovascular: No: Chest Pain, Palpitations, Orthopnea, Paroxysmal Noc. Dyspnea, Edema, Lt Headedness, Other Gastrointestinal: No: Nausea, Vomiting, Abdominal Pain, Diarrhea, Constipation, Melena, Hematochezia, Other Genitourinary: No Dysuria, No Frequency, No Incontinence, No Hematuria, No Retention, No Other Musculoskeletal: No: other, neck pain, shoulder pain, arm pain, back pain, hand pain, leg pain, foot pain Skin: No: Rash, Lesions, Jaundice, Bruising, Other Neurological: Other (Dizziness); No: Weakness, Numbness, Incoordination, Change in speech, Confusion, Seizures Allergies: Coded Allergies: NO KNOWN ALLERGIES (Unverified , 02/04/24) Medications Current Medications Medications Dose Ordered Sig/Carlos Route Start Time Stop Time Status Last Admin Dose Admin Aspirin 81 mg DAILY PO 09/30/24 10:00 Atorvastatin Calcium 20 mg HS PO 09/30/24 22:00 Lisinopril 10 mg DAILY PO 09/30/24 10:00 Hydralazine HCl 10 mg Q6HP PRN IV 09/29/24 22:30 Diagnostic Test (Pha) 1 strip ACHS 09/30/24 07:00 Insulin Human Regular ACHS SC 09/30/24 07:00 Dextrose 50 ml UD PRN IV 09/29/24 22:30 Sodium Chloride 1,000 ml @ 60 mls/hr [id number] IV 09/29/24 22:30 Acetaminophen/ Hydrocodone Bitart 1 tab Q4HP PRN PO 09/29/24 22:30 Ondansetron HCl 4 mg Q4HP PRN IV 09/29/24 22:30 Docusate Sodium 100 mg BIDPRN PRN PO 09/29/24 22:30 Acetaminophen 650 mg Q6HP PRN PO 09/29/24 22:30 Exam Vital Signs Vital Signs Date Time Temp Pulse Resp B/P (MAP) Pulse Ox O2 Delivery O2 Flow Rate FiO2 09/29/24 21:21 97.8 53 16 146/58 (87) 96 97.8 09/29/24 18:35 Room Air General Appearance: Alert, Oriented X3, Cooperative, No acute distress HEENT: Atraumatic, PERRLA, EOMI, Mucous membr. moist/pink Respiratory: Clear to auscultation, Normal air movement Cardiovascular: Regular rate, Normal S1, Normal S2, No murmurs Abdominal: Normal bowel sounds, Soft, No tenderness, No hepatospenomegaly, No masses Extremities: No clubbing, No cyanosis, No edema, Normal pulses, No tenderness/swelling Skin: No rashes, No breakdown, No significant lesion Neuro: Normal speech, Normal tone, Sensation intact, Cranial nerves 3-12 NL, Reflexes 2+, Other (Generalized weakness) Psych/Mental Status: Mental status NL, Mood NL Labs/Xrays Labs Test 09/29/24 19:59 09/29/24 18:54 09/29/24 16:56 09/29/24 16:38 Range/Units Troponin I High Sensitivity 10 </=54 ng/L Urine Color Light-yellow Yellow Urine Clarity Clear Clear Urine pH 5.0 5.0-9.0 Urine Specific [place] 1.023 1.001-1.035 Urine Protein Negative Negative Urine Ketones Negative Negative Urine Blood Negative Negative /uL Urine Nitrite Negative Negative Urine Bilirubin Negative Negative Urine Urobilinogen Normal Negative mg/dL Urine Leukocyte Esterase Negative Negative /uL Urine RBC <1 0 - 3 /hpf Urine Microscopic WBC < 1 0-3 /HPF Urine Squamous Epithelial Cells Few <5 /hpf Urine Bacteria None seen None Seen /hpf Urine Glucose 4+ H Normal mg/dL White Blood Count 6.0 4.4-10.8 10^3/uL Red Blood Count 4.57 4.5-5.90 10^6/uL Hemoglobin 14.0 13.5-17.5 g/dL Hematocrit 40.8 L 41.0-53.0 % Mean Corpuscular Volume 89.3 80.0-100.0 fL Mean Corpuscular Hemoglobin 30.7 28.0-32.0 pg Mean Corpuscular Hemoglobin Concent 34.4 32.0-36.0 g/dL Red Cell Distribution Width 14.8 H 11.8-14.3 % Platelet Count 218 140-450 10^3/uL Mean Platelet Volume 7.6 6.9-10.8 fL Neutrophils (%) (Auto) 74.0 37.0-80.0 % Lymphocytes (%) (Auto) 15.3 10.0-50.0 % Monocytes (%) (Auto) 7.5 0.0-12.0 % Eosinophils (%) (Auto) 2.4 0.0-7.0 % Basophils (%) (Auto) 0.8 0.0-2.0 % Neutrophils # (Auto) 4.4 1.6-8.6 10 ^3/uL Lymphocytes # (Auto) 0.9 0.4-5.4 10 ^3/uL Monocytes # (Auto) 0.4 0-1.3 10 ^3/uL Eosinophils # (Auto) 0.1 0-0.8 10 ^3/uL Basophils # (Auto) 0 0-0.2 10 ^3/uL Nucleated Red Blood Cells 0.1 % Sodium Level 142 136-145 mmol/L Potassium Level 4.1 3.5-5.1 mmol/L Chloride Level 109 H 98-107 mmol/L Carbon Dioxide Level 24 20-31 mmol/L Anion Gap 9 5-15 Blood Urea Nitrogen 43 H 9-23 mg/dL Creatinine 1.36 H 0.700-1.30 mg/dL Glomerular Filtration Rate Calc 51 >90 mL/min BUN/Creatinine Ratio 31.6 H 10.0-20.0 Serum Glucose 121 H 74-106 mg/dL Lactic Acid Level 0.8 0.4-2.0 mmol/L Calcium Level 10.8 H 8.7-10.4 mg/dL Total Bilirubin 0.7 0.2-1.0 mg/dL Aspartate Amino Transferase (AST) 21 <34 U/L Alanine Aminotransferase (ALT) 23 7-40 U/L Alkaline Phosphatase 101 46-116 U/L B-Type Natriuretic Peptide 71.31 0-100 pg/mL Total Protein 7.3 5.7-8.2 g/dL Albumin 4.7 3.2-4.8 g/dL Lipase 28 12-53 U/L POC Glucose 146 H 70-106 mg/dl PATIENT: ALLYSSA GARSIA ACCT: [id number] UNIT: [id number] : 1940 LOC: ER ROOM / BED: / AGE / SEX: 83 / M ADM STATUS: REG ER SERVICE [id number] ORDERING PHYSICIAN: HARJIT MCCALL PAC PROCEDURE(s): CXRP - CHEST PORTABLE REASON: Shortness of breath ORDER NUMBER(s): [id number], ACCESSION NUMBER(s): [id number] CHEST RADIOGRAPH Indication: Shortness of breath Technique: Single frontal view of the chest was obtained COMPARISON: XY CHEST XRAY 1 VIEW on DOS: 09/15/24, XY CHEST PORTABLE on DOS: 02/05/24 FINDINGS: Lines and Tubes: None Lungs: Clear Pleura: No effusion. No pneumothorax. Cardiomediastinal contours: Unremarkable Bones: Unremarkable IMPRESSION: 1. No acute disease. Assessment/Plan Assessment/Plan Generalized weakness Sinus bradycardia Acute on chronic renal failure Plan 1. Admit to telemetry unit 2. Breathing treatment 3. Pain control management 4. Management of fluids and electrolytes 5. Consultation for hospitalist 6. Diagnostic tests chest x-ray 7. DVT prophylaxis-on SCDs 8. Repeat labs CBC, CMP in a.m. 9. Continue with current medical management 10. Treatment plan discussed with patient and RN. Patient verbalized understand ing. Plan discussed with: Patient, Daughter, Other (RN) My Orders Orders - MARY DUNBAR DNP Procedure Category Date Status Time Consistent DIET 09/30/24 Transmitted Carb(Ccho)Diabetes Breakfast Aspirin Tablet PHA 09/30/24 In Process 10:00 *Dr. [facility] CONS 09/29/24 Transmitted -[place] 22:19 Atorvastatin (Lipitor) PHA 09/30/24 In Process 22:00 Lisinopril Tablet PHA 09/30/24 In Process (Zestril Tablet) 10:00 Hydralazine Injection PHA 09/29/24 In Process (Apresoline Inject 22:30 Glucose Blood PHA 09/30/24 In Process (Accu-Chek Comfort 07:00 Insulin R (Human) PHA 09/30/24 In Process (Insulin R) 07:00 Dextrose 50% Syringe PHA 09/29/24 In Process 22:30 Allergies MICHAEL 09/29/24 In Process 22:19 Code Status CODE 09/29/24 Transmitted 22:19 Sodium Chloride 0.9% PHA 09/29/24 In Process 22:30 Oxygen Per Hour RT 09/29/24 Transmitted 22:19 Hydrocodone-Acet PHA 09/29/24 In Process 5/325mg Tab ([place] 22:30 Ondansetron Hcl PHA 09/29/24 In Process (Zofran) 22:30 Docusate Sodium PHA 09/29/24 In Process Capsule (Colace 22:30 Fall Risk Precautions MICHAEL 09/29/[address] 22:19 Complete Blood Count LAB 09/30/24 Verified 04:00 Comprehensive LAB 09/30/24 Verified Metabolic Panel 04:00 Condition: Serious MICHAEL 09/29/24 In Process 22:19 Acetaminophen Tablet PHA 09/29/24 In Process (Tylenol Tablet) 22:30 Bedrest With Bathroom MICHAEL 09/29/24 In Process Privileg 22:19 Sequential MICHAEL 09/29/24 In Process Compression Device Admit ADMIT 09/29/24 Verified 23:33 Nitroglycerin PHA 09/29/24 Verified Sublingual (Ntrostat 23:45 Morphine Sulfate [facility] 09/29/24 Verified Injection 23:45 Stat Ekg For Chest [facility] 09/29/24 Verified Pain 23:33 Notify Md Of Changes [facility] 09/29/24 Verified From Base 23:33 Bobbin Collector For [facility] 09/29/24 Verified 24 Hours 23:33 Emergency Dysrhythmia [facility] 09/29/24 Verified Protocol 23:33 Rhythm Strips Once [facility] 09/29/24 Verified Every Shift 23:33 Oxygen By Nasal RT 09/29/24 Verified Cannula 23:33 Problem List: (1) Generalized weakness (2) Sinus bradycardia (3) Acute on chronic renal failure Date of Service: Sep 29, 2024 Billing Provider: MARY DUNBAR DNP Common Visit Codes: [id number] INP/OBS CARE (HIGH) MARY DUNBAR DNP Sep 29, 2024 23:34
[2024-09-29] MEDS ORDERED: MORPHINE SULFATE INJ 2 MG/ml SYRG IV PRN (23:45)
[2024-09-29] MEDS ORDERED: NITROGLYCERIN 0.4 MG SL TAB SL PRN (23:45)
[2024-09-30] VITALS (9 sets, daily range): BP systolic 95–167; BP diastolic 47–75; PULSE 49–64; RESP 17–20; TEMP 96.7–98.1; O2SAT 95–98
[2024-09-30] MEDS: hydrALAZINE HCL 20 MG/ML VL IV PRN (02:35)
[2024-09-30 05:52] LABS: Basophils # (auto) 0 10 ^3/uL (0-0.2); Basophils % (auto) 0.3 % (0.0-2.0); Eosinophils # (auto) 0.3 10 ^3/uL (0-0.8); Eosinophils % (auto) 3.8 % (0.0-7.0); Hematocrit 40.2 % (41.0-53.0); Hemoglobin 13.9 g/dL (13.5-17.5); Lymphocytes # (auto) 1.5 10 ^3/uL (0.4-5.4); Lymphocytes % (auto) 22.2 % (10.0-50.0); Mean Corpuscular Hemoglobin 30.6 pg (28.0-32.0); Mean Corpuscular Hgb Conc. 34.4 g/dL (32.0-36.0); Mean Corpuscular Volume 88.9 fL (80.0-100.0); Monocytes # (auto) 0.7 10 ^3/uL (0-1.3); Monocytes % (auto) 10.1 % (0.0-12.0); Neutrophils # (auto) 4.3 10 ^3/uL (1.6-8.6); Neutrophils % (auto) 63.6 % (37.0-80.0); Nucleated Red Blood Cells % 0.1 %; Platelet Count (auto) 205 10^3/uL (140-450); Red Blood Cells 4.53 10^6/uL (4.5-5.90); Red Cell Distribution Width 14.7 % (11.8-14.3); White Blood Cell 6.7 10^3/uL (4.4-10.8)
[2024-09-30 06:06] LABS: Alanine Aminotransferase 22 U/L (7-40); Albumin 4.4 g/dL (3.2-4.8); Alkaline Phosphatase 95 U/L (46-116); Anion Gap 9 (5-15); Aspartate Aminotransferase 19 U/L (<34); BUN/Creatinine Ratio 34.8 (10.0-20.0); Carbon Dioxide 24 mmol/L (20-31); Potassium 3.9 mmol/L (3.5-5.1); Sodium 144 mmol/L (136-145); Total Protein 6.8 g/dL (5.7-8.2)
[2024-09-30 06:07] LABS: Bilirubin, Total 0.5 mg/dL (0.2-1.0)
[2024-09-30 06:08] LABS: Blood Urea Nitrogen 48 mg/dL (9-23); Chloride 111 mmol/L (98-107); Glucose 136 mg/dL (74-106)
[2024-09-30] MEDS: SODIUM CHLORIDE 0.9% 1,000 ML IV SCH (06:36)
[2024-09-30] MEDS: ACCU-CHEK COMFORT CURVE STRIP VI SCH (06:39)
[2024-09-30] MEDS: InsuLIN REG 1unit/0.01ml Soln (100units/ml) SC SCH (06:47)
[2024-09-30] MEDS: LISINOPRIL 5 MG TAB PO SCH (10:00)
--- NOTE | 2024-09-30 10:00 | DVHINCON2 ---
Date of service: Sep 30, 2024 Referring Physician Charly Nguyen NP Reason for Consultation Acute kidney injury History of Present Illness Patient is a 83-year-old male with past medical history significant for Prostate cancer, CKD 3, CVA, DM, and HTN is admitted for generalized weakness and dizziness. On admission patient found to have elevated BUN and creatinine nephrology is consulted for acute kidney injury Past Medical History PAST MEDICAL HISTORY: Prostate cancer, CKd 3, CVA, DM, HTN Past Surgical History Surgical History: Cholecystectomy, Hernia Repair, Tonsillectomy Allergies: Coded Allergies: NO KNOWN ALLERGIES (Unverified , 02/04/24) Home Meds Active Scripts Metoprolol Succinate (Toprol Xl) 50 Mg Tab, 12.5 MG PO DAILY for 30 Days, #8 TAB Prov:LILIYA AGUIRRE RESIDENT 02/06/24 Reported Medications Glipizide (Glipizide) 5 Mg Tab, 1 TAB PO BID 09/16/24 Losartan Potassium (Losartan Potassium) 100 Mg Tab, 1 TAB PO DAILY 09/16/24 Lisinopril (Lisinopril) 20 Mg Tab, 1 TAB PO DAILY 09/16/24 Hctz (Hydrochlorothiazide) 25 Mg Tab, 1 TAB PO DAILY 09/16/24 Metoprolol Succinate (Metoprolol Succinate Er) 25 Mg Tab, 0.5 TAB PO DAILY 09/16/24 Insulin Glargine (Lantus Solostar) 100 Unit/Ml Inj, SC 02/04/24 Cholecalciferol (VITAMIN D3) 2,000 Unit Tab, 1 TAB PO DAILY, #30 TAB 5 Refills 02/04/24 Aspirin (Aspir-81) 81 Mg Tab, 1 TAB PO DAILY, #30 TAB 5 Refills 02/04/24 Glipizide (Glipizide) 10 Mg Tab, 1 TAB PO BID 02/04/24 Dapagliflozin Propanediol (Dapagliflozin Propanediol) 10 Mg Tab, 1 TAB PO DAILY 02/04/24 Atorvastatin Calcium (ATORVASTATIN CALCIUM) 40 Mg Tab, 40 MG PO DAILY 02/04/24 Amiodarone HCl (Amiodarone HCl) 200 Mg Tab, 200 MG PO BID 02/04/24 Current Medications Current Medications Medications (Trade) Dose Ordered Sig/Carlos Route PRN Reason Start Time Stop Time Status Last Admin Aspirin 81 mg DAILY PO 09/30/24 10:00 Atorvastatin Calcium (Lipitor) 20 mg HS PO 09/30/24 22:00 Lisinopril (Zestril Tablet) 10 mg DAILY PO 09/30/24 10:00 Hydralazine HCl (Apresoline Injection) 10 mg Q6HP PRN IV SBP>150 09/29/24 22:30 09/30/24 02:35 Diagnostic Test (Pha) (Accu-Chek Comfort Curve T) 1 strip ACHS 09/30/24 07:00 09/30/24 06:39 Insulin Human Regular (InsuLIN R) ACHS SC 09/30/24 07:00 Dextrose 50 ml UD PRN IV Blood Sugar LESS THAN 60 09/29/24 22:30 Sodium Chloride 1,000 ml @ 60 mls/hr [id number] IV 09/29/24 22:30 09/30/24 06:36 Acetaminophen/ Hydrocodone Bitart ([place] 5/325MG Tab) 1 tab Q4HP PRN PO MODERATE PAIN (4-6 PAIN SCALE) 09/29/24 22:30 Ondansetron HCl (Zofran) 4 mg Q4HP PRN IV NAUSEA / VOMITING 09/29/24 22:30 Docusate Sodium (Colace Capsule) 100 mg BIDPRN PRN PO FOR CONSTIPATION 09/29/24 22:30 Acetaminophen (Tylenol Tablet) 650 mg Q6HP PRN PO PAIN SCALE 1-3 OR TEMP>100.4 09/29/24 22:30 Nitroglycerin (Ntrostat Sublingual) 0.4 mg Q5MINP PRN SL FOR CHEST PAIN 09/29/24 23:45 Morphine Sulfate 2 mg Q30M PRN IV FOR CHEST PAIN 09/29/24 23:45 Family History: Patient reports no known family medical history. Review of Systems All 12 item review of systems reviewed with the patient nonsignificant except what is mentioned in the history of present illness H&P Exam Vital Signs/I&O Vital Sign Date Time Temp Pulse Resp B/P (MAP) Pulse Ox O2 Delivery O2 Flow Rate FiO2 09/30/24 08:30 98.1 58 19 95/47 (63) 96 98.1 09/30/24 01:39 Room Air* 0 21 Intake and Output 09/29/24 09/30/24 19:00 07:00 Intake Total 0 ml Balance 0 ml Intake Oral 0 ml # Voids 1 Physical Exam Patient lying comfortably in bed Lungs clear to auscultation bilaterally Cardiac exam regular rate and rhythm GI soft nontender was normal Extremities no clubbing cyanosis or edema Neuro patient is awake and alert Labs/Diagnostic Data Labs/Diagnostic Data Laboratory Tests Test 09/30/24 05:02 09/29/24 19:59 09/29/24 18:54 09/29/24 17:59 Range/Units White Blood Count 6.7 4.4-10.8 10^3/uL Red Blood Count 4.53 4.5-5.90 10^6/uL Hemoglobin 13.9 13.5-17.5 g/dL Hematocrit 40.2 L 41.0-53.0 % Mean Corpuscular Volume 88.9 80.0-100.0 fL Mean Corpuscular Hemoglobin 30.6 28.0-32.0 pg Mean Corpuscular Hemoglobin Concent 34.4 32.0-36.0 g/dL Red Cell Distribution Width 14.7 H 11.8-14.3 % Platelet Count 205 140-450 10^3/uL Mean Platelet Volume 7.3 6.9-10.8 fL Neutrophils (%) (Auto) 63.6 37.0-80.0 % Lymphocytes (%) (Auto) 22.2 10.0-50.0 % Monocytes (%) (Auto) 10.1 0.0-12.0 % Eosinophils (%) (Auto) 3.8 0.0-7.0 % Basophils (%) (Auto) 0.3 0.0-2.0 % Neutrophils # (Auto) 4.3 1.6-8.6 10 ^3/uL Lymphocytes # (Auto) 1.5 0.4-5.4 10 ^3/uL Monocytes # (Auto) 0.7 0-1.3 10 ^3/uL Eosinophils # (Auto) 0.3 0-0.8 10 ^3/uL Basophils # (Auto) 0 0-0.2 10 ^3/uL Nucleated Red Blood Cells 0.1 % Sodium Level 144 136-145 mmol/L Potassium Level 3.9 3.5-5.1 mmol/L Chloride Level 111 H 98-107 mmol/L Carbon Dioxide Level 24 20-31 mmol/L Anion Gap 9 5-15 Blood Urea Nitrogen 48 H 9-23 mg/dL Creatinine 1.38 H 0.700-1.30 mg/dL Glomerular Filtration Rate Calc 50 >90 mL/min BUN/Creatinine Ratio 34.8 H 10.0-20.0 Serum Glucose 136 H 74-106 mg/dL Calcium Level 11.0 H 8.7-10.4 mg/dL Total Bilirubin 0.5 0.2-1.0 mg/dL Aspartate Amino Transferase (AST) 19 <34 U/L Alanine Aminotransferase (ALT) 22 7-40 U/L Alkaline Phosphatase 95 46-116 U/L Total Protein 6.8 5.7-8.2 g/dL Albumin 4.4 3.2-4.8 g/dL Troponin I High Sensitivity 10 10 </=54 ng/L Urine Color Light-yellow Yellow Urine Clarity Clear Clear Urine pH 5.0 5.0-9.0 Urine Specific [place] 1.023 1.001-1.035 Urine Protein Negative Negative Urine Ketones Negative Negative Urine Blood Negative Negative /uL Urine Nitrite Negative Negative Urine Bilirubin Negative Negative Urine Urobilinogen Normal Negative mg/dL Urine Leukocyte Esterase Negative Negative /uL Urine RBC <1 0 - 3 /hpf Urine Microscopic WBC < 1 0-3 /HPF Urine Squamous Epithelial Cells Few <5 /hpf Urine Bacteria None seen None Seen /hpf Urine Glucose 4+ H Normal mg/dL Test 09/29/24 16:56 09/29/24 16:38 Range/Units White Blood Count 6.0 4.4-10.8 10^3/uL Red Blood Count 4.57 4.5-5.90 10^6/uL Hemoglobin 14.0 13.5-17.5 g/dL Hematocrit 40.8 L 41.0-53.0 % Mean Corpuscular Volume 89.3 80.0-100.0 fL Mean Corpuscular Hemoglobin 30.7 28.0-32.0 pg Mean Corpuscular Hemoglobin Concent 34.4 32.0-36.0 g/dL Red Cell Distribution Width 14.8 H 11.8-14.3 % Platelet Count 218 140-450 10^3/uL Mean Platelet Volume 7.6 6.9-10.8 fL Neutrophils (%) (Auto) 74.0 37.0-80.0 % Lymphocytes (%) (Auto) 15.3 10.0-50.0 % Monocytes (%) (Auto) 7.5 0.0-12.0 % Eosinophils (%) (Auto) 2.4 0.0-7.0 % Basophils (%) (Auto) 0.8 0.0-2.0 % Neutrophils # (Auto) 4.4 1.6-8.6 10 ^3/uL Lymphocytes # (Auto) 0.9 0.4-5.4 10 ^3/uL Monocytes # (Auto) 0.4 0-1.3 10 ^3/uL Eosinophils # (Auto) 0.1 0-0.8 10 ^3/uL Basophils # (Auto) 0 0-0.2 10 ^3/uL Nucleated Red Blood Cells 0.1 % Sodium Level 142 136-145 mmol/L Potassium Level 4.1 3.5-5.1 mmol/L Chloride Level 109 H 98-107 mmol/L Carbon Dioxide Level 24 20-31 mmol/L Anion Gap 9 5-15 Blood Urea Nitrogen 43 H 9-23 mg/dL Creatinine 1.36 H 0.700-1.30 mg/dL Glomerular Filtration Rate Calc 51 >90 mL/min BUN/Creatinine Ratio 31.6 H 10.0-20.0 Serum Glucose 121 H 74-106 mg/dL Lactic Acid Level 0.8 0.4-2.0 mmol/L Calcium Level 10.8 H 8.7-10.4 mg/dL Total Bilirubin 0.7 0.2-1.0 mg/dL Aspartate Amino Transferase (AST) 21 <34 U/L Alanine Aminotransferase (ALT) 23 7-40 U/L Alkaline Phosphatase 101 46-116 U/L Troponin I High Sensitivity 11 </=54 ng/L B-Type Natriuretic Peptide 71.31 0-100 pg/mL Total Protein 7.3 5.7-8.2 g/dL Albumin 4.7 3.2-4.8 g/dL Lipase 28 12-53 U/L POC Glucose 146 H 70-106 mg/dl Assessment Acute kidney injury superimposed Chronic Kidney Disease secondary hemodynamic mediated Generalized weakness Hypotension Diabetes mellitus type 2 Bradycardia History of prostate cancer Recommendations Closely monitor fluid and electrolytes Avoid nephrotoxic medication Strict I&Os Streamline blood pressure medications Check orthostatic blood pressure Insulin sliding scale Check urine electrolytes and protein excretion Check kidney ultrasound Cardiology consult We will continue to follow Patient seen and examined by myself. 45 minutes time spent. I discussed my plan of care with the patient and primary nurse at the bedside I would like to thank Charly for the consult Plan discussed with: Patient LARISA SAUNDERS MD Sep 30, 2024 10:00
[2024-09-30 10:27] LABS: Magnesium 2.3 mg/dL (1.6-2.6)
[2024-09-30 10:28] LABS: Phosphorus 4.8 mg/dL (2.4-5.1)
[2024-09-30] MEDS: ASPirin 81 mg TAB PO SCH (10:56)
--- NOTE | 2024-09-30 12:42 | DVH ---
US KIDNEY HISTORY: srikanth COMPARISON: None TECHNIQUE: Transverse and longitudinal grayscale and color doppler images were obtained of the kidney s and bladder. FINDINGS: Right kidney: Size: 10.2 cm Cortical thickness: Thin Echogenicity: Increased Stones: None Masses: None Hydronephrosis: None Ureters: Not well visualized. Other: None Left kidney: Size: 10.1 cm Cortical thickness: Thin Echogenicity: Increased Stones: None Masses: None Hydronephrosis: None Ureters: Not well visualized. Other: None Bladder: Small bladder diverticulum is seen. Other: Cyst is seen in the liver. IMPRESSION: Echogenicity renal cortices could be seen with medical renal disease. No hydronephrosis is visualized .
--- NOTE | 2024-09-30 13:38 | DVHPN2 ---
Reviewed: Care Plan, H&P, Labs, Medications, Previous Orders, Radiology Changes from previous H/P or p: No Changes Eyes: No Pain, No Vision change, No Conjunctivae inflammation, No Eyelid inflammation, No Other, No Redness ENT: No Ear pain, No Ear discharge, No Nose pain, No Nose discharge, No Nose congestion, No Mouth pain, No Mouth swelling, No Throat pain, No Throat swelling, No Other Cardiovascular: No Chest Pain, No Palpitations, No Orthopnea, No Paroxysmal Noc. Dyspnea, No Edema, No Lt Headedness, No Other Respiratory: No Cough, No Dry, No Shortness of breath, No SOB with excertion, No Wheezing, No Hemoptysis, No Pleuritic Pain, No Sputum, No Other Gastrointestinal: No Nausea, No Vomiting, No Abdominal Pain, No Diarrhea, No Constipation, No Melena, No Hematochezia, No Other Genitourinary: No Dysuria, No Frequency, No Incontinence, No Hematuria, No Retention, No Other Musculoskeletal: No other, No neck pain, No shoulder pain, No arm pain, No back pain, No hand pain, No leg pain, No foot pain Skin: No Rash, No Lesions, No Jaundice, No Bruising, No Other Objective Vitals Vital Signs Date Time Temp Pulse Resp B/P (MAP) Pulse Ox O2 Delivery O2 Flow Rate FiO2 09/30/24 12:45 98.0 57 18 140/62 (88) 97 98.0 09/30/24 08:00 Room Air* 0 21 Intake/Output Intake and Output 09/30/24 07:00 Intake Total 0 ml Balance 0 ml Intake Oral 0 ml # Voids 1 Medications Current Medications Medications Dose Ordered Sig/Carlos Route Start Time Stop Time Status Last Admin Dose Admin Aspirin 81 mg DAILY PO 09/30/24 10:00 09/30/24 10:56 81 MG Atorvastatin Calcium 20 mg HS PO 09/30/24 22:00 Lisinopril 10 mg DAILY PO 09/30/24 10:00 Hydralazine HCl 10 mg Q6HP PRN IV 09/29/24 22:30 09/30/24 02:35 10 MG Diagnostic Test (Pha) 1 strip ACHS 09/30/24 07:00 09/30/24 10:50 1 STRIP Insulin Human Regular ACHS SC 09/30/24 07:00 09/30/24 10:55 3 UNITS Dextrose 50 ml UD PRN IV 09/29/24 22:30 Sodium Chloride 1,000 ml @ 60 mls/hr [id number] IV 09/29/24 22:30 09/30/24 06:36 60 MLS/HR Acetaminophen/ Hydrocodone Bitart 1 tab Q4HP PRN PO 09/29/24 22:30 Ondansetron HCl 4 mg Q4HP PRN IV 09/29/24 22:30 Docusate Sodium 100 mg BIDPRN PRN PO 09/29/24 22:30 Acetaminophen 650 mg Q6HP PRN PO 09/29/24 22:30 Nitroglycerin 0.4 mg Q5MINP PRN SL 09/29/24 23:45 Morphine Sulfate 2 mg Q30M PRN IV 09/29/24 23:45 Laboratory Results Laboratory Tests 09/30/24 05:02 Chemistry Test 09/29/24 16:56 09/30/24 05:02 Albumin 4.7 g/dL (3.2-4.8) 4.4 g/dL (3.2-4.8) Calcium Level 10.8 mg/dL (8.7-10.4) H 11.0 mg/dL (8.7-10.4) H Total Protein 7.3 g/dL (5.7-8.2) 6.8 g/dL (5.7-8.2) Magnesium Level 2.3 mg/dL (1.6-2.6) Phosphorus Level 4.8 mg/dL (2.4-5.1) Lipid panel Test 09/29/24 16:56 Lipase 28 U/L (12-53) Cardiac Markers Test 09/29/24 16:56 09/30/24 05:02 B-Type Natriuretic Peptide 71.31 pg/mL (0-100) 60.14 pg/mL (0-100) LFT Test 09/29/24 16:56 09/30/24 05:02 Alanine Aminotransferase (ALT) 23 U/L (7-40) 22 U/L (7-40) Alkaline Phosphatase 101 U/L (46-116) 95 U/L (46-116) Aspartate Amino Transferase (AST) 21 U/L (<34) 19 U/L (<34) Total Bilirubin 0.7 mg/dL (0.2-1.0) 0.5 mg/dL (0.2-1.0) Urinalysis Test 09/29/24 18:54 Urine Color Light-yellow (Yellow) Urine Clarity Clear (Clear) Urine pH 5.0 (5.0-9.0) Urine Specific [place] 1.023 (1.001-1.035) Urine Protein Negative (Negative) Urine Ketones Negative (Negative) Urine Blood Negative /uL (Negative) Urine Nitrite Negative (Negative) Urine Bilirubin Negative (Negative) Urine Urobilinogen Normal mg/dL (Negative) Urine Leukocyte Esterase Negative /uL (Negative) Urine RBC <1 /hpf (0 - 3) Urine Microscopic WBC < 1 /HPF (0-3) Urine Squamous Epithelial Cells Few /hpf (<5) Urine Bacteria None seen /hpf (None Seen) Urine Glucose 4+ mg/dL (Normal) H Labs and/or images reviewed: Labs reviewed by me, Image(s) reviewed by me Assessment/Plan Assessment/Plan # Acute Left-sided weakness possible TIA, symptoms now resolved completely, consult for Dr. Gonzalez #History of prostate cancer five years ago #chronic kidney failure CKD stage IIIB : Consult by Nephrology appreciated # history of previous strokes x 4; patient stopped baby aspirin two months back and he thinks that is the reason he has a TIA now, advised to resume aspirin # diabetes mellitus well controlled, HGB A1c 7.0 on home Lantus # fairly controlled essential hypertension # paroxysmal atrial fibrillation, CHADS-VASc score of six, apparently not on anticoagulants needs further evaluation # mild dehydration Status post IV gentle fluid rehydration. #ACS ruled out trops -ve telemetry and EKG cxr pending #Acute Hemorrhagic Stroke Ruled out #likely Generalized deconditioning #generalized anxiety/ depression on SSRI Daughter Yuni [phone] at bed side Plan discussed with: Patient Date of Service: Sep 30, 2024 Billing Provider: EMEKA NELSON MD Common Visit Codes: [id number] CARE 30-74 MIN EMEKA NELSON MD Sep 30, 2024 13:38
--- NOTE | 2024-09-30 14:30 | DVH ---
EXAM: CT HEAD WITHOUT CONTRAST INDICATION: Recent fall TECHNIQUE: CT of the head without intravenous contrast. Radiation Dose Information: CT Dose: CTDI volume is 55.84 mGy. Dose-length product is 895.19 mGy*cm The dose indicators for CT are the volume Computed Tomography (CT) Dose Index (CTDIvol) and the Dose Length Product (DLP), and are measured in units of mGy and mGy-cm, respectively. These indicators are not patient dose, but values generated from the CT scanner acquisition factors. The report includes radiation exposure data for exposures received during this examination. COMPARISON: CT HEAD WITHOUT CONTRAST on DOS: 09/15/24, CT HEAD WITHOUT CONTRAST on DOS: 02/04/24 FINDINGS: There is no evidence of acute intracranial hemorrhage, extra-axial collection, mass effect, midline s hift, herniation or hydrocephalus. Cortical atrophy and periventricular microvascular angiopathy. The ventricles, sulci and cisterns are age appropriate. The cunha-white differentiation is intact. Patchy periventricular and subcortical white matter hypoattenuation is nonspecific but may be related to small vessel ischemic disease. The visualized paranasal sinuses and mastoid air cells are clear. The surrounding soft tissues and osseous structures are unremarkable. IMPRESSION: 1. No acute intracranial hemorrhage 2. Cortical atrophy 3. No significant change from 09/15/2024 consider MRI for further evaluation. HS:Y
[2024-09-30 15:57] LABS: Urine Bacteria None Seen /hpf (None Seen)
[2024-09-30 16:15] LABS: Urine Blood Negative /uL (Negative); Urine Clarity Clear (Clear); Urine Color Light-Yellow (Yellow); Urine Protein, UAD Negative (Negative); Urine Specific Gravity 1.021 (1.001-1.035); Urine Squamous Epithelial Cell FEW /hpf (<5); Urine Urobilinogen Normal (Negative)
[2024-09-30 16:26] LABS: Protein, Urine 21.1 mg/dL (1-14)
[2024-09-30 16:29] LABS: Creatinine, Urine 47.12 mg/dL (30.0-125.0)
[2024-09-30 16:30] LABS: Creatinine, Urine 48.9 mg/dL (30.0-125.0); Urine Protein/Creatinine Ratio 0.43
[2024-09-30] MEDS: ATORVASTATIN 20 MG TAB PO SCH (21:17)
[2024-10-01] VITALS (9 sets, daily range): BP systolic 126–165; BP diastolic 56–79; PULSE 57–70; RESP 17–19; TEMP 97.9–98.5; O2SAT 94–98
--- NOTE | 2024-10-01 08:29 | DVHPN2 ---
Reviewed: Care Plan, H&P, Labs, Medications, Previous Orders, Radiology Changes from previous H/P or p: No Changes Eyes: No Pain, No Vision change, No Conjunctivae inflammation, No Eyelid inflammation, No Other, No Redness ENT: No Ear pain, No Ear discharge, No Nose pain, No Nose discharge, No Nose congestion, No Mouth pain, No Mouth swelling, No Throat pain, No Throat swelling, No Other Cardiovascular: No Chest Pain, No Palpitations, No Orthopnea, No Paroxysmal Noc. Dyspnea, No Edema, No Lt Headedness, No Other Respiratory: No Cough, No Dry, No Shortness of breath, No SOB with excertion, No Wheezing, No Hemoptysis, No Pleuritic Pain, No Sputum, No Other Gastrointestinal: No Nausea, No Vomiting, No Abdominal Pain, No Diarrhea, No Constipation, No Melena, No Hematochezia, No Other Genitourinary: No Dysuria, No Frequency, No Incontinence, No Hematuria, No Retention, No Other Musculoskeletal: No other, No neck pain, No shoulder pain, No arm pain, No back pain, No hand pain, No leg pain, No foot pain Skin: No Rash, No Lesions, No Jaundice, No Bruising, No Other Objective Vitals Vital Signs Date Time Temp Pulse Resp B/P (MAP) Pulse Ox O2 Delivery O2 Flow Rate FiO2 10/01/24 05:14 98.0 59 18 130/68 (88) 97 98.0 09/30/24 20:00 Room Air* 0 21 Intake/Output Intake and Output 10/01/24 07:00 Intake Total 1690 ml Output Total 150 ml Balance 1540 ml Intake Oral 1690 ml Output Urine Total 150 ml # Voids 8 # Bowel Movements 1 Medications Current Medications Medications Dose Ordered Sig/Carlos Route Start Time Stop Time Status Last Admin Dose Admin Aspirin 81 mg DAILY PO 09/30/24 10:00 09/30/24 10:56 81 MG Atorvastatin Calcium 20 mg HS PO 09/30/24 22:00 09/30/24 21:17 20 MG Lisinopril 10 mg DAILY PO 09/30/24 10:00 Hydralazine HCl 10 mg Q6HP PRN IV 09/29/24 22:30 09/30/24 02:35 10 MG Diagnostic Test (Pha) 1 strip ACHS 09/30/24 07:00 10/01/24 05:49 1 STRIP Insulin Human Regular ACHS SC 09/30/24 07:00 09/30/24 21:26 2 UNITS Dextrose 50 ml UD PRN IV 09/29/24 22:30 Sodium Chloride 1,000 ml @ 60 mls/hr [id number] IV 09/29/24 22:30 09/30/24 06:36 60 MLS/HR Acetaminophen/ Hydrocodone Bitart 1 tab Q4HP PRN PO 09/29/24 22:30 Ondansetron HCl 4 mg Q4HP PRN IV 09/29/24 22:30 Docusate Sodium 100 mg BIDPRN PRN PO 09/29/24 22:30 Acetaminophen 650 mg Q6HP PRN PO 09/29/24 22:30 Nitroglycerin 0.4 mg Q5MINP PRN SL 09/29/24 23:45 Morphine Sulfate 2 mg Q30M PRN IV 09/29/24 23:45 Laboratory Results Laboratory Tests 09/30/24 05:02 Urinalysis Test 09/30/24 15:56 Urine Color Light-yellow (Yellow) Urine Clarity Clear (Clear) Urine pH 5.0 (5.0-9.0) Urine Specific [place] 1.021 (1.001-1.035) Urine Protein Negative (Negative) Urine Ketones Negative (Negative) Urine Blood Negative /uL (Negative) Urine Nitrite Negative (Negative) Urine Bilirubin Negative (Negative) Urine Urobilinogen Normal mg/dL (Negative) Urine Leukocyte Esterase Negative /uL (Negative) Urine RBC 1 /hpf (0 - 3) Urine Microscopic WBC /HPF (0-3) Urine Squamous Epithelial Cells Few /hpf (<5) Urine Bacteria None seen /hpf (None Seen) Urine Creatinine 48.90 mg/dL (30.0-125.0) Urine Protein/Creatinine Ratio 0.43 Urine Sodium 90 mmol/L (40-220) Urine Glucose 4+ mg/dL (Normal) H Urine Total Protein 21.1 mg/dL (1-14) H Microbiology Microbiology Date/Time Source Procedure Growth Status 09/29/24 16:56 Blood Blood Culture - Preliminary NO GROWTH AFTER 24 HOURS OF INCUBATION. Resulted Labs and/or images reviewed: Labs reviewed by me, Image(s) reviewed by me Assessment/Plan Assessment/Plan Recurrent falls at home : CT head negative, Neurology consult for Dr. Gonzalez Unsteady gait Acute metabolic encephalopathy Acute kidney injury versus vasomotor nephropathy nephrology consult by Dr. Epstein appreciated History of prostate cancer five years ago History of strokes x4 Controlled diabetes A1c 7.0 Hypertension Paroxysmal AFib : Not on any blood thinners: Consult for patient's money examiner Dr. Hernandez General deconditioning Anxiety Depression Daughter Patrice Workman [phone] at bed side Physical Therapy consult Plan discussed with: Patient, Daughter (Patrice Workman) My Orders Orders - EMEKA NELSON MD Procedure Category Date Status Time Head Without Contrast CT 09/30/24 Resulted 13:41 Date of Service: Oct 01, 2024 Billing Provider: EMEKA NELSON MD Common Visit Codes: [id number] CARE 30-74 MIN EMEKA NELSON MD Oct 01, 2024 08:29
[2024-10-01] MEDS: AMIODARONE HCL 200 MG TAB PO SCH ×2 (10:18→22:03)
[2024-10-01] MEDS: LOSARTAN POTASSIUM 50 MG TAB PO SCH (10:18)
[2024-10-01] MEDS: hydroCHLOROthiazide 25 MG TAB PO SCH (10:19)
[2024-10-01] MEDS: METOPROLOL SUCCINATE XL 50 MG TAB PO SCH (10:19)
--- NOTE | 2024-10-01 10:51 | DVHPN2 ---
Progress Note Date Seen: Oct 01, 2024 Medical Necessity Reason Pt with a Central, PICC or Fol: No Subjective Patient reports: No new complaints Other Systems: Patient seen and examined by myself today in follow-up Objective vital signs Vital Sign Date Time Temp Pulse Resp B/P (MAP) Pulse Ox O2 Delivery O2 Flow Rate FiO2 10/01/24 10:19 72 135/78 10/01/24 08:34 98.1 19 96 98.1 09/30/24 20:00 Room Air* 0 21 Total Intake and Output 09/30/24 09/30/24 10/01/24 15:00 23:00 07:00 Intake Total 1040 ml 650 ml Output Total 150 ml Balance 1040 ml 500 ml medications Current Medications Medications Dose Ordered Sig/Carlos Route Start Time Stop Time Status Last Admin Dose Admin Aspirin 81 mg DAILY PO 09/30/24 10:00 10/01/24 10:19 81 MG Atorvastatin Calcium 20 mg HS PO 09/30/24 22:00 09/30/24 21:17 20 MG Lisinopril 10 mg DAILY PO 09/30/24 10:00 10/01/24 10:18 10 MG Hydralazine HCl 10 mg Q6HP PRN IV 09/29/24 22:30 09/30/24 02:35 10 MG Diagnostic Test (Pha) 1 strip ACHS 09/30/24 07:00 10/01/24 05:49 1 STRIP Insulin Human Regular ACHS SC 09/30/24 07:00 09/30/24 21:26 2 UNITS Dextrose 50 ml UD PRN IV 09/29/24 22:30 Sodium Chloride 1,000 ml @ 60 mls/hr [id number] IV 09/29/24 22:30 09/30/24 06:36 60 MLS/HR Acetaminophen/ Hydrocodone Bitart 1 tab Q4HP PRN PO 09/29/24 22:30 Ondansetron HCl 4 mg Q4HP PRN IV 09/29/24 22:30 Docusate Sodium 100 mg BIDPRN PRN PO 09/29/24 22:30 Acetaminophen 650 mg Q6HP PRN PO 09/29/24 22:30 Nitroglycerin 0.4 mg Q5MINP PRN SL 09/29/24 23:45 Morphine Sulfate 2 mg Q30M PRN IV 09/29/24 23:45 Amiodarone HCl 200 mg Q12HR PO 10/01/24 10:00 10/01/24 10:18 200 MG Hydrochlorothiazide 25 mg DAILY PO 10/01/24 10:00 10/01/24 10:19 25 MG Losartan Potassium 100 mg DAILY PO 10/01/24 10:00 10/01/24 10:18 100 MG Metoprolol Succinate 25 mg DAILY PO 10/01/24 10:00 10/01/24 10:19 25 MG Examination: LUNGS:Normal, CVS:Normal, MSK:Normal laboratory and microbiology Laboratory Tests 09/30/24 05:02 Test 09/30/24 05:02 Range/Units Serum Glucose 136 H 74-106 mg/dL Microbiology Date/Time Source Procedure Growth Status 09/29/24 16:56 Blood Blood Culture - Preliminary NO GROWTH AFTER 24 HOURS OF INCUBATION. Resulted Problem List/Assessment/Plan Problem List/Assessment/Plan Acute kidney injury superimposed Chronic Kidney Disease secondary hemodynamic mediated, FeNa > 2% Generalized weakness Hypotension, resolved Diabetes mellitus type 2 Bradycardia Hypercalcemia History of prostate cancer Recommendations Kidney function slightly improving No urine output charted Strict I&Os Streamline blood pressure medications Discontinue hydrochlorothiazide PTH is pending Insulin sliding scale kidney ultrasound bilateral echogenic kidney no hydronephrosis Cardiology consult We will continue to follow Plan discussed with: Patient LARISA SAUNDERS MD Oct 01, 2024 10:51
--- NOTE | 2024-10-01 16:00 | DVHINCON2 ---
Date of service: Oct 01, [address] Jeffrey Reason for Consultation History of Arrhythmia History of Present Illness This is an 83-year old male known outside to our practice who initially presented 09/29/2024 with reported generalized weakness and dizziness. Patient himself reports the dizziness is worse when transitioning from a seated to standing position which he conveys he has not been able to stand up on his own without assistance. Given persistent nature of his symptoms patient was brought to ED by his son-in-law for further evaluation and management. Upon ED arrival, CT imaging of the brain was found negative for any acute intracranial pathology. Initial 12-lead electrocardiogram had revealed sinus rhythm at 55bpm, first degree AV block, Q-waves involving septal leads questioning possible previous NH, with no evidence for acute ischemic changes. Serial HS troponin trend was found negative (11, 10, 10). Initial proBNP level was found normal at 71.31 which subsequent chest imaging had revealed no evidence for acute cardiop ulmonary abnormalities. Initial creatine level was found elevated at 1.36 which subsequent renal ultrasound was found consistent with underlying medical renal disease (Nephrology services were later involved). Of note, patient carries a diagnosis of atrial fibrillation that had been documented by Neurology services at one point in the distant past however as the patient is known to our practice from outside, outside records reveal there has been documented diagnosis of atrial fibrillation to date however previous workup has revealed an underlying history of NSVT/SVT/PVCs for which he has been managed with Amiodarone and Metoprolol Succinate. Upon review of records, patient had previously been admitted to this facility in early September of 2024 for questionable transient ischemic attack and at that time, HPI note had again reported a history of atrial fibrillation which the diagnosis itself appears to have followed the patient despite no objective evidence (EKG tracings/telemetry strips) to date confirming its diagnosis. At that time, Echocardiogram 09/16/2024 had revealed a preserved LVEF of 65%, mild LV diastolic dysfunction, heavy calcified aortic leaflets, moderate degree aortic stenosis with an aortic valve area of 1.65cm2. Patient was furthermore found to have 50-69% stenosis involving the right ICA by sonogram. At present, patient denies any active chest pain, shortness of breath, palpitations, syncope, orthopnea, paroxysmal nocturnal dyspnea, or any further cardiac related symptoms. As there had been questionable concern for previous history of PAF not on concurrent AC therapy, Cardiology services were involved by primary team request for cardiac aspects of care. Past Medical History Past medical history includes diabetes mellitus, hypertension, hyperlipidemia, chronic kidney disease, repeated prior CVAs, vertigo, right internal carotid artery stenosis, GERD, history of frequent NSVT/SVT and PVCs. He has had hernia repair, cholecystectomy, and cataract surgery, He is on Amiodarone and Toprol- XL as outpatient. Echocardiogram of April 08, 2023 (performed in the office) had revealed ejection fraction of 65-70%, mild biatrial enlargement, mild concentric left ventricular hypertrophy, [id number] MR/TR/AI, mild MVP and mild pulmonary insufficiency Echocardiogram of September 16, 2024 ([facility]) had revealed ejection fraction of 65%, mild left ventricular hypertrophy, mild LV diastolic dysfunction, heavily calcified aortic leaflets, moderate degree aortic stenosis with aortic valve area of 1.65cm2 and is moderately reduced, normal mitral, tricuspid, pulmonic valves Nuclear stress tests (performed as outpatient) on June 23, 2022 did not reveal ischemia/car and reported ejection fraction of 69% Exercise treadmill stress test (performed as outpatient in April 2023) did not reveal ischemia. Baseline EKG had revealed frequent PVCs which during exercise: the load of PVC had decreased Past Surgical History Reviewed Family History: Patient reports no known family medical history. Allergies: Coded Allergies: NO KNOWN ALLERGIES (Unverified , 02/04/24) Home Meds Active Scripts Metoprolol Succinate (Toprol Xl) 50 Mg Tab, 12.5 MG PO DAILY for 30 Days, #8 TAB Prov:LILIYA AGUIRRE RESIDENT 02/06/24 Reported Medications Glipizide (Glipizide) 5 Mg Tab, 1 TAB PO BID 09/16/24 Losartan Potassium (Losartan Potassium) 100 Mg Tab, 1 TAB PO DAILY 09/16/24 Lisinopril (Lisinopril) 20 Mg Tab, 1 TAB PO DAILY 09/16/24 Hctz (Hydrochlorothiazide) 25 Mg Tab, 1 TAB PO DAILY 09/16/24 Metoprolol Succinate (Metoprolol Succinate Er) 25 Mg Tab, 0.5 TAB PO DAILY 09/16/24 Insulin Glargine (Lantus Solostar) 100 Unit/Ml Inj, SC 02/04/24 Cholecalciferol (VITAMIN D3) 2,000 Unit Tab, 1 TAB PO DAILY, #30 TAB 5 Refills 02/04/24 Aspirin (Aspir-81) 81 Mg Tab, 1 TAB PO DAILY, #30 TAB 5 Refills 02/04/24 Glipizide (Glipizide) 10 Mg Tab, 1 TAB PO BID 02/04/24 Dapagliflozin Propanediol (Dapagliflozin Propanediol) 10 Mg Tab, 1 TAB PO DAILY 02/04/24 Atorvastatin Calcium (ATORVASTATIN CALCIUM) 40 Mg Tab, 40 MG PO DAILY 02/04/24 Amiodarone HCl (Amiodarone HCl) 200 Mg Tab, 200 MG PO BID 02/04/24 Current Medications Current Medications Medications (Trade) Dose Ordered Sig/Carlos Route PRN Reason Start Time Stop Time Status Last Admin Atorvastatin Calcium (Lipitor) 20 mg HS PO 09/30/24 22:00 09/30/24 21:17 Amiodarone HCl (Cordarone Tablet) 200 mg Q12HR PO 10/01/24 10:00 10/01/24 10:18 Hydrochlorothiazide (hydroCHLOROthiazide TABLET) 25 mg DAILY PO 10/01/24 10:00 10/01/24 10:51 DC 10/01/24 10:19 Losartan Potassium (Cozaar Tablet) 100 mg DAILY PO 10/01/24 10:00 10/01/24 10:18 Metoprolol Succinate (Toprol Xl) 25 mg DAILY PO 10/01/24 10:00 10/01/24 10:19 Review of Systems A 14-point review of systems is negative unless otherwise noted above Vital Signs Vital Signs Date Time Temp Pulse Resp B/P (MAP) Pulse Ox O2 Delivery O2 Flow Rate FiO2 10/01/24 12:35 97.9 57 18 144/63 (90) 94 97.9 09/30/24 20:00 Room Air* 0 21 Physical Exam Heart: S1 and S2 regular. The patient is in sinus rhythm. Lungs: Clear to auscultation Abdomen: Benign. Extremities: Distal pulses palpable, 2+. No evidence for peripheral edema. Labs/Diagnostic Data Labs Test 10/01/24 11:26 09/30/24 15:56 09/30/24 05:02 09/29/24 19:59 Range/Units POC Glucose 159 H 70-106 mg/dl Urine Color Light-yellow Yellow Urine Clarity Clear Clear Urine pH 5.0 5.0-9.0 Urine Specific [place] 1.021 1.001-1.035 Urine Protein Negative Negative Urine Ketones Negative Negative Urine Blood Negative Negative /uL Urine Nitrite Negative Negative Urine Bilirubin Negative Negative Urine Urobilinogen Normal Negative mg/dL Urine Leukocyte Esterase Negative Negative /uL Urine RBC 1 0 - 3 /hpf Urine Microscopic WBC 0-3 /HPF Urine Squamous Epithelial Cells Few <5 /hpf Urine Bacteria None seen None Seen /hpf Urine Creatinine 48.90 30.0-125.0 mg/dL Urine Protein/Creatinine Ratio 0.43 Urine Sodium 90 40-220 mmol/L Urine Glucose 4+ H Normal mg/dL Urine Total Protein 21.1 H 1-14 mg/dL White Blood Count 6.7 4.4-10.8 10^3/uL Red Blood Count 4.53 4.5-5.90 10^6/uL Hemoglobin 13.9 13.5-17.5 g/dL Hematocrit 40.2 L 41.0-53.0 % Mean Corpuscular Volume 88.9 80.0-100.0 fL Mean Corpuscular Hemoglobin 30.6 28.0-32.0 pg Mean Corpuscular Hemoglobin Concent 34.4 32.0-36.0 g/dL Red Cell Distribution Width 14.7 H 11.8-14.3 % Platelet Count 205 140-450 10^3/uL Mean Platelet Volume 7.3 6.9-10.8 fL Neutrophils (%) (Auto) 63.6 37.0-80.0 % Lymphocytes (%) (Auto) 22.2 10.0-50.0 % Monocytes (%) (Auto) 10.1 0.0-12.0 % Eosinophils (%) (Auto) 3.8 0.0-7.0 % Basophils (%) (Auto) 0.3 0.0-2.0 % Neutrophils # (Auto) 4.3 1.6-8.6 10 ^3/uL Lymphocytes # (Auto) 1.5 0.4-5.4 10 ^3/uL Monocytes # (Auto) 0.7 0-1.3 10 ^3/uL Eosinophils # (Auto) 0.3 0-0.8 10 ^3/uL Basophils # (Auto) 0 0-0.2 10 ^3/uL Nucleated Red Blood Cells 0.1 % Sodium Level 144 136-145 mmol/L Potassium Level 3.9 3.5-5.1 mmol/L Chloride Level 111 H 98-107 mmol/L Carbon Dioxide Level 24 20-31 mmol/L Anion Gap 9 5-15 Blood Urea Nitrogen 48 H 9-23 mg/dL Creatinine 1.38 H 0.700-1.30 mg/dL Glomerular Filtration Rate Calc 50 >90 mL/min BUN/Creatinine Ratio 34.8 H 10.0-20.0 Serum Glucose 136 H 74-106 mg/dL Uric Acid 4.5 3.7-9.2 mg/dL Calcium Level 11.0 H 8.7-10.4 mg/dL Phosphorus Level 4.8 2.4-5.1 mg/dL Magnesium Level 2.3 1.6-2.6 mg/dL Total Bilirubin 0.5 0.2-1.0 mg/dL Aspartate Amino Transferase (AST) 19 <34 U/L Alanine Aminotransferase (ALT) 22 7-40 U/L Alkaline Phosphatase 95 46-116 U/L Creatine Kinase 50 46-171 U/L B-Type Natriuretic Peptide 60.14 0-100 pg/mL Total Protein 6.8 5.7-8.2 g/dL Albumin 4.4 3.2-4.8 g/dL Troponin I High Sensitivity 10 </=54 ng/L Test 09/29/24 16:56 Range/Units Lactic Acid Level 0.8 0.4-2.0 mmol/L Lipase 28 12-53 U/L Microbiology Date/Time Source Procedure Growth Status 09/30/24 02:20 Nose MRSA Screen - Final Complete 09/29/24 16:56 Blood Blood Culture - Preliminary NO GROWTH AFTER 24 HOURS OF INCUBATION. Resulted Plan/Recommendation ASSESSMENT: This is an 83-year old male known outside to our practice who initially presented 09/29/2024 with reported generalized weakness and dizziness. Patient himself reports the dizziness is worse when transitioning from a seated to standing position which he conveys he has not been able to stand up on his own without assistance. Given persistent nature of his symptoms patient was brought to ED by his son-in-law for further evaluation and management. Upon ED arrival, CT imaging of the brain was found negative for any acute intracranial pathology. Initial 12-lead electrocardiogram had revealed sinus rhythm at 55bpm, first degree AV block, Q-waves involving septal leads questioning possible previous NH, with no evidence for acute ischemic changes. Serial HS troponin trend was found negative (11, 10, 10). Initial proBNP level was found normal at 71.31 which subsequent chest imaging had revealed no evidence for acute cardiopulmonary abnormalities. Initial creatine level was found elevated at 1.36 which subsequent renal ultrasound was found consistent with underlying medical renal disease (Nephrology services were later involved). Of note, patient carries a diagnosis of atrial fibrillation that had been documented by Neurology services at one point in the distant past however as the patient is known to our practice from outside, outside records reveal there has been documented diagnosis of atrial fibrillation to date however previous workup has revealed an underlying history of NSVT/SVT/PVCs for which he has been managed with Amiodarone and Metoprolol Succinate. Upon review of records, patient had previously been admitted to this facility in early September of 2024 for questionable transient ischemic attack and at that time, HPI note had again reported a history of atrial fibrillation which the diagnosis itself appears to have followed the patient despite no objective evidence (EKG tracings/telemetry strips) to date confirming its diagnosis. At that time, Echocardiogram 09/16/2024 had revealed a preserved LVEF of 65%, mild LV diastolic dysfunction, heavy calcified aortic leaflets, moderate degree aortic stenosis with an aortic valve area of 1.65cm2. Patient was furthermore found to have 50-69% stenosis involving the right ICA by sonogram. At present, recognizing mechanism of dizziness, orthostatic hypotension can not be ruled out. Presently, denies any active chest pain, shortness of breath, palpitations, syncope, orthopnea, paroxysmal nocturnal dyspnea, or any further cardiac related symptoms. As there had been questionable concern for previous history of PAF not on concurrent AC therapy, Cardiology services were involved by primary team request for cardiac aspects of care. Past medical history includes diabetes mellitus, hypertension, hyperlipidemia, chronic kidney disease, repeated prior CVAs, vertigo, right internal carotid artery stenosis, GERD, history of frequent NSVT/SVT and PVCs. He has had hernia repair, cholecystectomy, and cataract surgery, He is on Amiodarone and Toprol- XL as outpatient. Echocardiogram of April 08, 2023 (performed in the office) had revealed ejection fraction of 65-70%, mild biatrial enlargement, mild concentric left ventricular hypertrophy, [id number] MR/TR/AI, mild MVP and mild pulmonary insufficiency Echocardiogram of September 16, 2024 ([facility]) had revealed ejection fraction of 65%, mild left ventricular hypertrophy, mild LV diastolic dysfunction, heavily calcified aortic leaflets, moderate degree aortic stenosis with aortic valve area of 1.65cm2 and is moderately reduced, normal mitral, tricuspid, pulmonic valves Nuclear stress tests (performed as outpatient) on June 23, 2022 did not reveal ischemia/car and reported ejection fraction of 69% Exercise treadmill stress test (performed as outpatient in April 2023) did not reveal ischemia. Baseline EKG had revealed frequent PVCs which during exercise: the load of PVC had decreased Dizziness, rule out orthostatic hypotension History of arrhythmias (NSVT, SVT, PVC's), on Amiodarone/Beta-Sheldon therapy Valvular heart disease, moderate degree per TTE (09/16/2024) Chronic diastolic heart failure, LVEF of 65% (09/16/2024) 50-69% right ICA stenosis, per sonogram findings SHERIF superimposed on CKD Repeated history of CVAs Vertigo, history of Diabetes mellitus Hyperlipidemia Hypertension CARDIAC SUGGESTIONS FOR MANAGEMENT: Request for thyroid function test Request for orthostatic vital signs As there has been no objective data to date confirming presence of PAF, AC at his point is not indicated from a cardiac perspective Out-patient based long-term event monitoring to rule out occult arrhythmias can be justified/arranged To proceed with close rate and rhythm surveillance during the interim Atorvastatin 20mg daily (goal LDL < 60 given right ICA stenosis) On Aspirin 81mg daily for previous history of CVA's Metoprolol Succinate 12.5mg once daily Amiodarone 200mg q hs Proceed with strict intakes, outputs, and daily weights Proceed with close hemodynamic surveillance Proceed with optimized blood pressure control Transfuse to sustain HGB level above 7.0 Sustain Magnesium level greater than 2.0 Sustain Potassium level greater than 4.0 Follow up renal function and electrolytes Consider vascular surgery evaluation if warranted for underlying carotid stenosis Management of co-morbidities as per primary team Management of SHERIF on CKD as per Nephrology Management in telemetry Follow up customer care consultant recommendations Will proceed to follow from a cardiac perspective Further recommendations per clinical progression All available diagnostic labs, EKG's, and images were personally reviewed Patient's status, findings, and plan of care was reviewed and discussed with [facility] ervising physician Dr. Coffey, who is in agreement with current plan of care. Plan of care discussed with and agreed upon by patient / family / primary RN Prognosis: Guarded Thank you for allowing me to participate in the care of this patient. Further recommendations based on patients clinical course and progression, primary attending, and other consultants. Will continue to follow with primary attending. If you have any questions or concerns, please do not hesitate to contact me. A total of 75 minutes was spent reviewing the patient record, examining the patient, making a diagnostic and therapeutic plan, discussing this plan with medical personnel, following up on diagnostic studies and following the patient for clinical stability excluding any and all procedures. At least 50% of this time was spent in direct, [id number] contact. Plan discussed with: Patient (Patient, Family, Primary RN ) DESTINEE BEARD Oct 01, 2024 16:00
--- NOTE | 2024-10-01 23:50 | DVHINCON2 ---
Date of service: Oct 01, [address] Jeffrey Reason for Consultation Unsteady gait, recurrent falls History of Present Illness Mr. Espinoza is a 83 years old right-handed gentleman with a history of hypertension, diabetes, previous strokes, he came to the hospital on 02/04/24 with a chief complain of dizziness, at this time, he is alert and fully oriented, he provided following history I saw him on 02/04/2024 for dizziness with stroke history He was just discharged from the [facility] on 09/17/2024 for general weakness, and he was said to have TIA On 09/29/2024, at his daughter's home, when he was standing up, he had intense dizziness/spinning sensation and he was falling backwards like a piece of log without loss of consciousness About one month ago, when he was about open his truck on his drive weak, he fell backwards with no injuries, there was no preceded dizziness or other warning symptoms Abnormal one year ago, he had fall without ALOC, there was no associated dizziness For about two years, he shuffles when he walk, but he was good memory, he was no difficulty with bowel/bladder control In 2000 and 2001, he had three strokes and strokes were a few months apart from each other, which were preceded by brief dizziness/spinning sensation, followed by clumsiness/difficulty controlling right hand. The patient was said to have stroke, and he is on aspirin 81 mg, Lipitor 40 mg daily according to his home medication list He was arrhythmia, not AFib, and Dr. Hernandez is his grocery deliverer He said he was rods in his back, and is not an MRI candidate Urinalysis, 09/29/2024: No UTI CBC, 09/30/2024: Unremarkable BUN/CR, 02/04/24: 53/1.76, 09/30/2024: 48/1.38 Liver function tests, 09/30/2024: Unremarkable HGB A1c, 02/04/2024: 7.3 TG/HDL/LDL/HDL, 01/2024: 105/204/111/77, 09/16/24: 75/154/69/65 Vitamin B12, 01/2024: 1458 TSH, 01/2024: 4 Carotid Doppler, 09/16/2024: 50-69% stenosis in the right internal carotid artery. Antegrade flow in the bilateral vertebral arteries CT head, 02/04/2024: 1. No CT evidence of acute intracranial abnormality. 2. Sequela of prior ischemia as described above. 3. Additional findings as detailed above. (More focal area of encephalomalacia in the left frontal lobe, likely sequela of prior infarct. Chronic lacunar infarct in the right basal ganglia) CT head, 09/30/2024: 1. No acute intracranial hemorrhage 2. Cortical atrophy 3. No significant change from 09/15/2024 consider MRI for further evaluation Past Medical History Hypertension, diabetes, strokes Past Surgical History Cholecystectomy, hernia repair, back surgery Family History: Patient reports no known family medical history. Family History Patient reports no known family medical history. Social History He is not a tobacco smoker, no history of alcohol or recreational substance abuse Allergies: Coded Allergies: NO KNOWN ALLERGIES (Unverified , 02/04/24) Home Meds Active Scripts Metoprolol Succinate (Toprol Xl) 50 Mg Tab, 12.5 MG PO DAILY for 30 Days, #8 TAB Prov:LILIYA AGUIRRE RESIDENT 02/06/24 Reported Medications Glipizide (Glipizide) 5 Mg Tab, 1 TAB PO BID 09/16/24 Losartan Potassium (Losartan Potassium) 100 Mg Tab, 1 TAB PO DAILY 09/16/24 Lisinopril (Lisinopril) 20 Mg Tab, 1 TAB PO DAILY 09/16/24 Hctz (Hydrochlorothiazide) 25 Mg Tab, 1 TAB PO DAILY 09/16/24 Metoprolol Succinate (Metoprolol Succinate Er) 25 Mg Tab, 0.5 TAB PO DAILY 09/16/24 Insulin Glargine (Lantus Solostar) 100 Unit/Ml Inj, SC 02/04/24 Cholecalciferol (VITAMIN D3) 2,000 Unit Tab, 1 TAB PO DAILY, #30 TAB 5 Refills 02/04/24 Aspirin (Aspir-81) 81 Mg Tab, 1 TAB PO DAILY, #30 TAB 5 Refills 02/04/24 Glipizide (Glipizide) 10 Mg Tab, 1 TAB PO BID 02/04/24 Dapagliflozin Propanediol (Dapagliflozin Propanediol) 10 Mg Tab, 1 TAB PO DAILY 02/04/24 Atorvastatin Calcium (ATORVASTATIN CALCIUM) 40 Mg Tab, 40 MG PO DAILY 02/04/24 Amiodarone HCl (Amiodarone HCl) 200 Mg Tab, 200 MG PO BID 02/04/24 Current Medications Current Medications Medications (Trade) Dose Ordered Sig/Carlos Route PRN Reason Start Time Stop Time Status Last Admin Amiodarone HCl (Cordarone Tablet) 200 mg Q12HR PO 10/01/24 10:00 10/01/24 17:47 DC 10/01/24 10:18 Hydrochlorothiazide (hydroCHLOROthiazide TABLET) 25 mg DAILY PO 10/01/24 10:00 10/01/24 10:51 DC 10/01/24 10:19 Losartan Potassium (Cozaar Tablet) 100 mg DAILY PO 10/01/24 10:00 10/01/24 10:18 Metoprolol Succinate (Toprol Xl) 25 mg DAILY PO 10/01/24 10:00 10/01/24 17:47 DC 10/01/24 10:19 Amiodarone HCl (Cordarone Tablet) 200 mg HS PO 10/01/24 22:00 10/01/24 22:03 Metoprolol Succinate (Toprol Xl) 12.5 mg DAILY PO 10/02/24 10:00 Review of Systems As above, the other systems are negative Vital Signs Vital Signs Date Time Temp Pulse Resp B/P (MAP) Pulse Ox O2 Delivery O2 Flow Rate FiO2 10/01/24 21:00 97.9 67 17 147/69 (95) 96 97.9 10/01/24 08:00 Room Air* 0 21 Physical Exam GENERAL EXAM: General: the patient is well developed and nourished. No acute distress. HEENT: Normocephalic, neck is supple, no carotid bruits. No mass. RESPIRATORY: Normal respiratory effort with symmetrical lung expansion. Lungs clear to auscultation. CARDIOVASCULAR: Regular rate and rhythm with no murmurs. S1, S2. ABDOMEN: Soft, nontender, normal bowel sound NEUROLOGICAL: MENTAL STATUS: Awake and alert. Oriented to person, place, time and general circumstances. Able to give personal history. SPEECH, LANGUAGE, HIGHER CORTICAL FUNCTION: no aphasia or dysathria. CRANIAL NERVES: #2: Intact visual cardona to confrontation. The optic discs were sharp. #3,4,6: Pupils are equal, round and reactive. EOMs full and conjugate. No nystagmus. #5: Facial sensation intact in all three divisions bilaterally. Mandibular strength intact. #7: Facial muscles symmetrical and strength intact. #8: Hearing grossly normal to voice. #9,10: Uvula and soft palate rise in the midline. Swallow and voice are normal. #11: Trapezius and sternomastoid strength intact bilaterally. #12: Tongue midline. No fasciculations or atrophy. SENSATION: Sensation to touch and pinprick is normal. MOTOR: Normal tone in the upper and lower extremity. Normal muscle bulk. No fasciculations. No abnormal movements or posturing. Muscle strength of the major groups in extremities is 5/5, though this pronator drift in the right upper extremity. REFLEXES: Deep tendon reflexes are symmetrical. No pathological reflexes. CEREBELLAR/COORDINATION: Finger to nose is normal bilaterally. GAIT/STATION: deferred Labs/Diagnostic Data Labs Test 10/01/24 21:38 10/01/24 18:05 09/30/24 15:56 09/30/24 05:02 Range/Units POC Glucose 157 H 70-106 mg/dl Thyroid Stimulating Hormone (TSH) 2.73 0.55-4.78 uIU/mL Urine Color Light-yellow Yellow Urine Clarity Clear Clear Urine pH 5.0 5.0-9.0 Urine Specific [place] 1.021 1.001-1.035 Urine Protein Negative Negative Urine Ketones Negative Negative Urine Blood Negative Negative /uL Urine Nitrite Negative Negative Urine Bilirubin Negative Negative Urine Urobilinogen Normal Negative mg/dL Urine Leukocyte Esterase Negative Negative /uL Urine RBC 1 0 - 3 /hpf Urine Microscopic WBC 0-3 /HPF Urine Squamous Epithelial Cells Few <5 /hpf Urine Bacteria None seen None Seen /hpf Urine Creatinine 48.90 30.0-125.0 mg/dL Urine Protein/Creatinine Ratio 0.43 Urine Sodium 90 40-220 mmol/L Urine Glucose 4+ H Normal mg/dL Urine Total Protein 21.1 H 1-14 mg/dL White Blood Count 6.7 4.4-10.8 10^3/uL Red Blood Count 4.53 4.5-5.90 10^6/uL Hemoglobin 13.9 13.5-17.5 g/dL Hematocrit 40.2 L 41.0-53.0 % Mean Corpuscular Volume 88.9 80.0-100.0 fL Mean Corpuscular Hemoglobin 30.6 28.0-32.0 pg Mean Corpuscular Hemoglobin Concent 34.4 32.0-36.0 g/dL Red Cell Distribution Width 14.7 H 11.8-14.3 % Platelet Count 205 140-450 10^3/uL Mean Platelet Volume 7.3 6.9-10.8 fL Neutrophils (%) (Auto) 63.6 37.0-80.0 % Lymphocytes (%) (Auto) 22.2 10.0-50.0 % Monocytes (%) (Auto) 10.1 0.0-12.0 % Eosinophils (%) (Auto) 3.8 0.0-7.0 % Basophils (%) (Auto) 0.3 0.0-2.0 % Neutrophils # (Auto) 4.3 1.6-8.6 10 ^3/uL Lymphocytes # (Auto) 1.5 0.4-5.4 10 ^3/uL Monocytes # (Auto) 0.7 0-1.3 10 ^3/uL Eosinophils # (Auto) 0.3 0-0.8 10 ^3/uL Basophils # (Auto) 0 0-0.2 10 ^3/uL Nucleated Red Blood Cells 0.1 % Sodium Level 144 136-145 mmol/L Potassium Level 3.9 3.5-5.1 mmol/L Chloride Level 111 H 98-107 mmol/L Carbon Dioxide Level 24 20-31 mmol/L Anion Gap 9 5-15 Blood Urea Nitrogen 48 H 9-23 mg/dL Creatinine 1.38 H 0.700-1.30 mg/dL Glomerular Filtration Rate Calc 50 >90 mL/min BUN/Creatinine Ratio 34.8 H 10.0-20.0 Serum Glucose 136 H 74-106 mg/dL Uric Acid 4.5 3.7-9.2 mg/dL Calcium Level 11.0 H 8.7-10.4 mg/dL Phosphorus Level 4.8 2.4-5.1 mg/dL Magnesium Level 2.3 1.6-2.6 mg/dL Total Bilirubin 0.5 0.2-1.0 mg/dL Aspartate Amino Transferase (AST) 19 <34 U/L Alanine Aminotransferase (ALT) 22 7-40 U/L Alkaline Phosphatase 95 46-116 U/L Creatine Kinase 50 46-171 U/L B-Type Natriuretic Peptide 60.14 0-100 pg/mL Total Protein 6.8 5.7-8.2 g/dL Albumin 4.4 3.2-4.8 g/dL Test 09/29/24 19:59 09/29/24 16:56 Range/Units Troponin I High Sensitivity 10 </=54 ng/L Lactic Acid Level 0.8 0.4-2.0 mmol/L Lipase 28 12-53 U/L Microbiology Date/Time Source Procedure Growth Status 09/30/24 02:20 Nose MRSA Screen - Final Complete 09/29/24 16:56 Blood Blood Culture - Preliminary NO GROWTH AFTER 48 HOURS OF INCUBATION. Resulted Assessment Fall, gait disturbance Vertigo Chronic strokes with mild right arm weakness ? NPH Plan/Recommendation Monitoring Supportive treatment Telemetry We will try MR brain scan Aspirin 81 mg daily Lipitor 40 mg daily Up to chair The therapy More recommendation per clinical course This medical document was created using an electronic medical record system with [employer] dictation system. Although this document has been carefully reviewed, there may still be some phonetic and typographical errors. These areas are purely typographical due to imperfections of the software programs, and do not reflect any compromise in the patient's medical care. Plan discussed with: Patient, Other ITZEL SCOTT MD Oct 01, 2024 23:50
[2024-10-02] VITALS (9 sets, daily range): BP systolic 110–152; BP diastolic 54–89; PULSE 17–83; RESP 16–18; TEMP 97.1–98.5; O2SAT 96–98
[2024-10-02] MEDS ORDERED: LORazepam 2MG/ML-1ML VIAL IV PRN
--- NOTE | 2024-10-02 08:35 | DVHPN2 ---
Progress Note - Dictate Date Seen: Oct 02, 2024 Medical Necessity Reason Pt with a Central, PICC or Fol: No vital signs Vital Sign Date Time Temp Pulse Resp B/P (MAP) Pulse Ox O2 Delivery O2 Flow Rate FiO2 10/02/24 05:00 98.3 64 17 115/58 (77) 97 98.3 10/01/24 20:00 Room Air* 0 21 Total Intake and Output 10/01/24 10/01/24 10/02/24 15:00 23:00 07:00 Intake Total 1080 ml 655 ml Output Total 960 ml 1025 ml Balance 120 ml -370 ml medications Current Medications Medications Dose Ordered Sig/Carlos Route Start Time Stop Time Status Last Admin Dose Admin Aspirin 81 mg DAILY PO 09/30/24 10:00 10/01/24 10:19 81 MG Atorvastatin Calcium 20 mg HS PO 09/30/24 22:00 10/01/24 22:03 20 MG Hydralazine HCl 10 mg Q6HP PRN IV 09/29/24 22:30 10/02/24 01:25 10 MG Diagnostic Test (Pha) 1 strip ACHS 09/30/24 07:00 10/02/24 06:21 1 STRIP Insulin Human Regular ACHS SC 09/30/24 07:00 10/02/24 06:23 2 UNITS Dextrose 50 ml UD PRN IV 09/29/24 22:30 Sodium Chloride 1,000 ml @ 60 mls/hr [id number] IV 09/29/24 22:30 10/02/24 00:30 60 MLS/HR Acetaminophen/ Hydrocodone Bitart 1 tab Q4HP PRN PO 09/29/24 22:30 Ondansetron HCl 4 mg Q4HP PRN IV 09/29/24 22:30 Docusate Sodium 100 mg BIDPRN PRN PO 09/29/24 22:30 Acetaminophen 650 mg Q6HP PRN PO 09/29/24 22:30 Nitroglycerin 0.4 mg Q5MINP PRN SL 09/29/24 23:45 Morphine Sulfate 2 mg Q30M PRN IV 09/29/24 23:45 Losartan Potassium 100 mg DAILY PO 10/01/24 10:00 10/01/24 10:18 100 MG Amiodarone HCl 200 mg HS PO 10/01/24 22:00 10/01/24 22:03 200 MG Metoprolol Succinate 12.5 mg DAILY PO 10/02/24 10:00 Lorazepam 1 mg ONCE PRN IV 10/02/24 00:00 laboratory and microbiology Laboratory Tests 09/30/24 05:02 Test 09/30/24 05:02 Range/Units Serum Glucose 136 H 74-106 mg/dL Assessment/Plan This is an 83-year old male known outside to our practice who initially presented 09/29/2024 with reported generalized weakness and dizziness. Patient himself reports the dizziness is worse when transitioning from a seated to standing position which he conveys he has not been able to stand up on his own without assistance. Given persistent nature of his symptoms patient was brought to ED by his son-in-law for further evaluation and management. Upon ED arrival, CT imaging of the brain was found negative for any acute intracranial pathology. Initial 12-lead electrocardiogram had revealed sinus rhythm at 55bpm, first degree AV block, Q-waves involving septal leads questioning possible previous SC, with no evidence for acute ischemic changes. Serial HS troponin trend was found negative (11, 10, 10). Initial proBNP level was found normal at 71.31 which subsequent chest imaging had revealed no evidence for acute cardiopulmonary abnormalities. Initial creatine level was found elevated at 1.36 which subsequent renal ultrasound was found consistent with underlying medical renal disease (Nephrology services were later involved). Of note, patient carries a diagnosis of atrial fibrillation that had been documented by Neurology services at one point in the distant past however as the patient is known to our practice from outside, outside records reveal there has been documented diagnosis of atrial fibrillation to date however previous workup has revealed an underlying history of NSVT/SVT/PVCs for which he has been managed with Amiodarone and Metoprolol Succinate. Upon review of records, patient had previously been admitted to this facility in early September of 2024 for questionable transient ischemic attack and at that time, HPI note had again reported a history of atrial fibrillation which the diagnosis itself appears to have followed the patient despite no objective evidence (EKG tracings/telemetry strips) to date confirming its diagnosis. At that time, Echocardiogram 09/16/2024 had revealed a preserved LVEF of 65%, mild LV diastolic dysfunction, heavy calcified aortic leaflets, moderate degree aortic stenosis with an aortic valve area of 1.65cm2. Patient was furthermore found to have 50-69% stenosis involving the right ICA by sonogram. At present, recognizing mechanism of dizziness, orthostatic hypotension can not be ruled out. Presently, denies any active chest pain, shortness of breath, palpitations, syncope, orthopnea, paroxysmal nocturnal dyspnea, or any further cardiac related symptoms. As there had been questionable concern for previous history of PAF not on concurrent AC therapy, Cardiology services were involved by primary team request for cardiac aspects of care. Past medical history includes diabetes mellitus, hypertension, hyperlipidemia, chronic kidney disease, repeated prior CVAs, vertigo, right internal carotid artery stenosis, GERD, history of frequent NSVT/SVT and PVCs. He has had hernia repair, cholecystectomy, and cataract surgery, He is on Amiodarone and Toprol- XL as outpatient. Echocardiogram of April 08, 2023 (performed in the office) had revealed ejection fraction of 65-70%, mild biatrial enlargement, mild concentric left ventricular hypertrophy, [id number] MR/TR/AI, mild MVP and mild pulmonary insufficiency Echocardiogram of September 16, 2024 ([facility]) had revealed ejection fraction of 65%, mild left ventricular hypertrophy, mild LV diastolic dysfunction, heavily calcified aortic leaflets, moderate degree aortic stenosis with aortic valve area of 1.65cm2 and is moderately reduced, normal mitral, tricuspid, pulmonic valves Nuclear stress tests (performed as outpatient) on June 23, 2022 did not reveal ischemia/car and reported ejection fraction of 69% Exercise treadmill stress test (performed as outpatient in April 2023) did not reveal ischemia. Baseline EKG had revealed frequent PVCs which during exercise: the load of PVC had decreased Dizziness, rule out orthostatic hypotension History of arrhythmias (NSVT, SVT, PVC's), on Amiodarone/Beta-Sheldon therapy Valvular heart disease, moderate degree per TTE (09/16/2024) Chronic diastolic heart failure, LVEF of 65% (09/16/2024) 50-69% right ICA stenosis, per sonogram findings SHERIF superimposed on CKD Repeated history of CVAs Vertigo, history of Diabetes mellitus Hyperlipidemia Hypertension CARDIAC SUGGESTIONS FOR MANAGEMENT: Request for orthostatic vital signs As there has been no objective data to date confirming presence of PAF, AC at his point is not indicated from a cardiac perspective Out-patient based long-term event monitoring to rule out occult arrhythmias can be justified/arranged To proceed with close rate and rhythm surveillance during the interim Atorvastatin 20mg daily (goal LDL < 60 given right ICA stenosis) On Aspirin 81mg daily for previous history of CVA's Metoprolol Succinate 12.5mg once daily Amiodarone 200mg q hs Proceed with strict intakes, outputs, and daily weights Proceed with close hemodynamic surveillance Proceed with optimized blood pressure control Transfuse to sustain HGB level above 7.0 Sustain Magnesium level greater than 2.0 Sustain Potassium level greater than 4.0 Follow up renal function and electrolytes Consider vascular surgery evaluation if warranted for underlying carotid stenosis Management of co-morbidities as per primary team Management of SHERIF on CKD as per Nephrology Management in telemetry Follow up [facility] [employer] consultant recommendations Will proceed to follow from a cardiac perspective Further recommendations per clinical progression All available diagnostic labs, EKG's, and images were personally reviewed Plan of care discussed with and agreed upon by patient / family / primary RN Prognosis: Guarded Thank you for allowing me to participate in the care of this patient. Further recommendations based on patients clinical course and progression, primary attending, and other consultants. Will continue to follow with primary attending. If you have any questions or concerns, please do not hesitate to contact me. A total of 75 minutes was spent reviewing the patient record, examining the patient, making a diagnostic and therapeutic plan, discussing this plan with medical personnel, following up on diagnostic studies and following the patient for clinical stability excluding any and all procedures. At least 50% of this time was spent in direct, [id number] contact. Plan discussed with: Other (nurse) HARJIT BENAVIDES MD Oct 02, 2024 08:35
--- NOTE | 2024-10-02 10:22 | DVHPN2 ---
Reviewed: Care Plan, H&P, Labs, Medications, Previous Orders, Radiology Changes from previous H/P or p: No Changes Eyes: No Pain, No Vision change, No Conjunctivae inflammation, No Eyelid inflammation, No Other, No Redness ENT: No Ear pain, No Ear discharge, No Nose pain, No Nose discharge, No Nose congestion, No Mouth pain, No Mouth swelling, No Throat pain, No Throat swelling, No Other Cardiovascular: No Chest Pain, No Palpitations, No Orthopnea, No Paroxysmal Noc. Dyspnea, No Edema, No Lt Headedness, No Other Respiratory: No Cough, No Dry, No Shortness of breath, No SOB with excertion, No Wheezing, No Hemoptysis, No Pleuritic Pain, No Sputum, No Other Gastrointestinal: No Nausea, No Vomiting, No Abdominal Pain, No Diarrhea, No Constipation, No Melena, No Hematochezia, No Other Genitourinary: No Dysuria, No Frequency, No Incontinence, No Hematuria, No Retention, No Other Musculoskeletal: No other, No neck pain, No shoulder pain, No arm pain, No back pain, No hand pain, No leg pain, No foot pain Skin: No Rash, No Lesions, No Jaundice, No Bruising, No Other Objective Vitals Vital Signs Date Time Temp Pulse Resp B/P (MAP) Pulse Ox O2 Delivery O2 Flow Rate FiO2 10/02/24 09:00 98.0 60 16 139/89 (106) 96 98.0 10/01/24 20:00 Room Air* 0 21 Intake/Output Intake and Output 10/02/24 07:00 Intake Total 1735 ml Output Total 1985 ml Balance -250 ml Intake Oral 1735 ml Output Urine Total 1985 ml # Bowel Movements 1 Medications Current Medications Medications Dose Ordered Sig/Carlos Route Start Time Stop Time Status Last Admin Dose Admin Aspirin 81 mg DAILY PO 09/30/24 10:00 10/01/24 10:19 81 MG Atorvastatin Calcium 20 mg HS PO 09/30/24 22:00 10/01/24 22:03 20 MG Hydralazine HCl 10 mg Q6HP PRN IV 09/29/24 22:30 10/02/24 01:25 10 MG Diagnostic Test (Pha) 1 strip ACHS 09/30/24 07:00 10/02/24 06:21 1 STRIP Insulin Human Regular ACHS SC 09/30/24 07:00 10/02/24 06:23 2 UNITS Dextrose 50 ml UD PRN IV 09/29/24 22:30 Sodium Chloride 1,000 ml @ 60 mls/hr [id number] IV 09/29/24 22:30 10/02/24 00:30 60 MLS/HR Acetaminophen/ Hydrocodone Bitart 1 tab Q4HP PRN PO 09/29/24 22:30 Ondansetron HCl 4 mg Q4HP PRN IV 09/29/24 22:30 Docusate Sodium 100 mg BIDPRN PRN PO 09/29/24 22:30 Acetaminophen 650 mg Q6HP PRN PO 09/29/24 22:30 Nitroglycerin 0.4 mg Q5MINP PRN SL 09/29/24 23:45 Morphine Sulfate 2 mg Q30M PRN IV 09/29/24 23:45 Losartan Potassium 100 mg DAILY PO 10/01/24 10:00 10/01/24 10:18 100 MG Amiodarone HCl 200 mg HS PO 10/01/24 22:00 10/01/24 22:03 200 MG Metoprolol Succinate 12.5 mg DAILY PO 10/02/24 10:00 Lorazepam 1 mg ONCE PRN IV 10/02/24 00:00 Laboratory Results Laboratory Tests 09/30/24 05:02 HgA1c, TSH Test 10/01/24 18:05 Thyroid Stimulating Hormone (TSH) 2.73 uIU/mL (0.55-4.78) Urinalysis Test 09/30/24 15:56 Urine Color Light-yellow (Yellow) Urine Clarity Clear (Clear) Urine pH 5.0 (5.0-9.0) Urine Specific [place] 1.021 (1.001-1.035) Urine Protein Negative (Negative) Urine Ketones Negative (Negative) Urine Blood Negative /uL (Negative) Urine Nitrite Negative (Negative) Urine Bilirubin Negative (Negative) Urine Urobilinogen Normal mg/dL (Negative) Urine Leukocyte Esterase Negative /uL (Negative) Urine RBC 1 /hpf (0 - 3) Urine Microscopic WBC /HPF (0-3) Urine Squamous Epithelial Cells Few /hpf (<5) Urine Bacteria None seen /hpf (None Seen) Urine Creatinine 48.90 mg/dL (30.0-125.0) Urine Protein/Creatinine Ratio 0.43 Urine Sodium 90 mmol/L (40-220) Urine Glucose 4+ mg/dL (Normal) H Urine Total Protein 21.1 mg/dL (1-14) H Microbiology Microbiology Date/Time Source Procedure Growth Status 09/30/24 02:20 Nose MRSA Screen - Final Complete 09/29/24 16:56 Blood Blood Culture - Preliminary NO GROWTH AFTER 48 HOURS OF INCUBATION. Resulted Labs and/or images reviewed: Labs reviewed by me, Image(s) reviewed by me Assessment/Plan Assessment/Plan Dizziness ruled out orthostatic hypotension Recurrent falls at home : CT head negative, History of arrhythmias on amiodarone/beta dontrell Acute on chronic diastolic heart failure ejection fraction 65% Unsteady gait: Neurology consult appreciated Acute metabolic encephalopathy Acute kidney injury versus vasomotor nephropathy nephrology consult by Dr. Epstein appreciated History of prostate cancer five years ago History of strokes x4 Controlled diabetes A1c 7.0 Hypertension Hyperlipidemia Diabetes Paroxysmal AFib : Not on any blood thinners: Consult for patient's special education curriculum specialist Dr. Hernandez General deconditioning Anxiety Depression Time spent 70 minutes Daughter Yuni [phone] at bed side Physical Therapy consult MRI brain pending Plan discussed with: Patient Date of Service: Oct 02, 2024 Billing Provider: EMEKA NELSON MD Common Visit Codes: [id number] CARE 30-74 MIN EMEKA NELSON MD Oct 02, 2024 10:22
--- NOTE | 2024-10-02 10:34 | DVHPN2 ---
Progress Note Date Seen: Oct 02, 2024 Medical Necessity Reason Pt with a Central, PICC or Fol: No Subjective Patient reports: No new complaints Other Systems: Patient seen and examined by myself today in follow-up Objective vital signs Vital Sign Date Time Temp Pulse Resp B/P (MAP) Pulse Ox O2 Delivery O2 Flow Rate FiO2 10/02/24 09:00 98.0 60 16 139/89 (106) 96 98.0 10/01/24 20:00 Room Air* 0 21 Total Intake and Output 10/01/24 10/01/24 10/02/24 15:00 23:00 07:00 Intake Total 1080 ml 655 ml Output Total 960 ml 1025 ml Balance 120 ml -370 ml medications Current Medications Medications Dose Ordered Sig/Carlos Route Start Time Stop Time Status Last Admin Dose Admin Aspirin 81 mg DAILY PO 09/30/24 10:00 10/01/24 10:19 81 MG Atorvastatin Calcium 20 mg HS PO 09/30/24 22:00 10/01/24 22:03 20 MG Hydralazine HCl 10 mg Q6HP PRN IV 09/29/24 22:30 10/02/24 01:25 10 MG Diagnostic Test (Pha) 1 strip ACHS 09/30/24 07:00 10/02/24 06:21 1 STRIP Insulin Human Regular ACHS SC 09/30/24 07:00 10/02/24 06:23 2 UNITS Dextrose 50 ml UD PRN IV 09/29/24 22:30 Sodium Chloride 1,000 ml @ 60 mls/hr [id number] IV 09/29/24 22:30 10/02/24 00:30 60 MLS/HR Acetaminophen/ Hydrocodone Bitart 1 tab Q4HP PRN PO 09/29/24 22:30 Ondansetron HCl 4 mg Q4HP PRN IV 09/29/24 22:30 Docusate Sodium 100 mg BIDPRN PRN PO 09/29/24 22:30 Acetaminophen 650 mg Q6HP PRN PO 09/29/24 22:30 Nitroglycerin 0.4 mg Q5MINP PRN SL 09/29/24 23:45 Morphine Sulfate 2 mg Q30M PRN IV 09/29/24 23:45 Losartan Potassium 100 mg DAILY PO 10/01/24 10:00 10/01/24 10:18 100 MG Amiodarone HCl 200 mg HS PO 10/01/24 22:00 10/01/24 22:03 200 MG Metoprolol Succinate 12.5 mg DAILY PO 10/02/24 10:00 Lorazepam 1 mg ONCE PRN IV 10/02/24 00:00 Examination: LUNGS:Normal, CVS:Normal, MSK:Normal laboratory and microbiology Laboratory Tests 09/30/24 05:02 Test 09/30/24 05:02 Range/Units Serum Glucose 136 H 74-106 mg/dL Microbiology Date/Time Source Procedure Growth Status 09/30/24 02:20 Nose MRSA Screen - Final Complete 09/29/24 16:56 Blood Blood Culture - Preliminary NO GROWTH AFTER 48 HOURS OF INCUBATION. Resulted Problem List/Assessment/Plan Problem List/Assessment/Plan Acute kidney injury superimposed Chronic Kidney Disease secondary hemodynamic mediated, FeNa > 2% Generalized weakness Hypotension, resolved Diabetes mellitus type 2 Bradycardia Hypercalcemia History of prostate cancer Recommendations Kidney function continues to improve Increased urine output Strict I&Os Streamline blood pressure medications Discontinue hydrochlorothiazide PTH is pending Insulin sliding scale kidney ultrasound bilateral echogenic kidney no hydronephrosis Cardiology consult We will continue to follow Plan discussed with: Patient LARISA SAUNDERS MD Oct 02, 2024 10:34
--- NOTE | 2024-10-02 10:52 | DVHPN2 ---
Progress Note - Dictate Date Seen: Oct 02, 2024 Medical Necessity Reason Pt with a Central, PICC or Fol: No Subjective Mr. Espinoza is a 83 years old right-handed gentleman with a history of hypertension, diabetes, previous strokes, he came to the hospital on 02/04/24 with a chief complain of dizziness, at this time, he is alert and fully oriented, he provided following history I saw him on 02/04/2024 for dizziness with stroke history I have seen and examined the patient, I have talked to Dr. Jeffrey, sees a therapist, daughter in the room. He was doing fine, no new complaints I have talked to MRI, they saw the patient she was be on MRI candidate ill with a mame in the spine Urinalysis, 09/29/2024: No UTI CBC, 09/30/2024: Unremarkable BUN/CR, 02/04/24: 53/1.76, 09/30/2024: 48/1.38 Liver function tests, 09/30/2024: Unremarkable HGB A1c, 02/04/2024: 7.3 TG/HDL/LDL/HDL, 01/2024: 105/204/111/77, 09/16/24: 75/154/69/65 Vitamin B12, 01/2024: 1458 TSH, 01/2024: 4 Carotid Doppler, 09/16/2024: 50-69% stenosis in the right internal carotid artery. Antegrade flow in the bilateral vertebral arteries CT head, 02/04/2024: 1. No CT evidence of acute intracranial abnormality. 2. Sequela of prior ischemia as described above. 3. Additional findings as detailed above. (More focal area of encephalomalacia in the left frontal lobe, likely sequela of prior infarct. Chronic lacunar infarct in the right basal ganglia) CT head, 09/30/2024: 1. No acute intracranial hemorrhage 2. Cortical atrophy 3. No significant change from 09/15/2024 consider MRI for further evaluation vital signs Vital Sign Date Time Temp Pulse Resp B/P (MAP) Pulse Ox O2 Delivery O2 Flow Rate FiO2 10/02/24 09:00 98.0 60 16 139/89 (106) 96 98.0 10/01/24 20:00 Room Air* 0 21 Total Intake and Output 10/01/24 10/01/24 10/02/24 14:59 22:59 06:59 Intake Total 1080 ml 655 ml Output Total 960 ml 1025 ml Balance 120 ml -370 ml medications Current Medications Medications Dose Ordered Sig/Carlos Route Start Time Stop Time Status Last Admin Dose Admin Aspirin 81 mg DAILY PO 09/30/24 10:00 10/01/24 10:19 81 MG Atorvastatin Calcium 20 mg HS PO 09/30/24 22:00 10/01/24 22:03 20 MG Hydralazine HCl 10 mg Q6HP PRN IV 09/29/24 22:30 10/02/24 01:25 10 MG Diagnostic Test (Pha) 1 strip ACHS 09/30/24 07:00 10/02/24 06:21 1 STRIP Insulin Human Regular ACHS SC 09/30/24 07:00 10/02/24 06:23 2 UNITS Dextrose 50 ml UD PRN IV 09/29/24 22:30 Sodium Chloride 1,000 ml @ 60 mls/hr [id number] IV 09/29/24 22:30 10/02/24 00:30 60 MLS/HR Acetaminophen/ Hydrocodone Bitart 1 tab Q4HP PRN PO 09/29/24 22:30 Ondansetron HCl 4 mg Q4HP PRN IV 09/29/24 22:30 Docusate Sodium 100 mg BIDPRN PRN PO 09/29/24 22:30 Acetaminophen 650 mg Q6HP PRN PO 09/29/24 22:30 Nitroglycerin 0.4 mg Q5MINP PRN SL 09/29/24 23:45 Morphine Sulfate 2 mg Q30M PRN IV 09/29/24 23:45 Losartan Potassium 100 mg DAILY PO 10/01/24 10:00 10/01/24 10:18 100 MG Amiodarone HCl 200 mg HS PO 10/01/24 22:00 10/01/24 22:03 200 MG Metoprolol Succinate 12.5 mg DAILY PO 10/02/24 10:00 Lorazepam 1 mg ONCE PRN IV 10/02/24 00:00 objective General: the patient is well developed and nourished. No acute distress. MENTAL STATUS: Objective SPEECH, LANGUAGE, HIGHER CORTICAL FUNCTION: no aphasia or dysathria. CRANIAL NERVES: Pupils are equal, round and reactive. EOMs full and conjugate. No nystagmus. Facial sensation intact in all three divisions bilaterally. Mandibular strength intact. Facial muscles symmetrical and strength intact. SENSATION: Sensation to touch and pinprick is normal. MOTOR: Normal tone in the upper and lower extremity. Normal muscle bulk. No fasciculations. No abnormal movements or posturing. Muscle strength of the major groups in extremities is 5/5, though this pronator drift in the right upper extremity. REFLEXES: Deep tendon reflexes are symmetrical. No pathological reflexes. CEREBELLAR/COORDINATION: Finger to nose is normal bilaterally. GAIT/STATION: deferred laboratory and microbiology Laboratory Tests 09/30/24 05:02 Test 09/30/24 05:02 Range/Units Serum Glucose 136 H 74-106 mg/dL Problem List Fall, gait disturbance Vertigo Chronic strokes with mild right arm weakness ? NPH Assessment/Plan Monitoring Supportive treatment Telemetry We will try MR brain scan Aspirin 81 mg daily Lipitor 40 mg daily Up to chair The therapy More recommendation per clinical course This medical document was created using an electronic medical record system with [facility] computerized dictation system. Although this document has been carefully reviewed, there may still be some phonetic and typographical errors. These areas are purely typographical due to imperfections of the software programs, and do not reflect any compromise in the patient's medical care. Prognosis poor Plan discussed with: Patient, Daughter, Other ITZEL SCOTT MD Oct 02, 2024 10:52
[2024-10-02] MEDS: METOPROLOL SUCCINATE XL 50 MG TAB PO SCH (10:55)
[2024-10-03 05:00] VITALS: BP 146/75; PULSE 16; PULSE 62; TEMP 97.5; O2SAT 98
--- NOTE | 2024-10-03 07:07 | DVHPN2 ---
Progress Note - Dictate Date Seen: Oct 03, 2024 Medical Necessity Reason Pt with a Central, PICC or Fol: No vital signs Vital Sign Date Time Temp Pulse Resp B/P (MAP) Pulse Ox O2 Delivery O2 Flow Rate FiO2 10/03/24 05:00 97.5 62 146/75 (98) 98 97.5 16 10/02/24 20:00 Room Air* 0 21 10/02/24 17:00 18 Total Intake and Output 10/02/24 10/02/24 10/03/24 15:00 23:00 07:00 Intake Total 0 ml 500 ml 300 ml Output Total 675 ml 451 ml Balance 0 ml -175 ml -151 ml medications Current Medications Medications Dose Ordered Sig/Carlos Route Start Time Stop Time Status Last Admin Dose Admin Aspirin 81 mg DAILY PO 09/30/24 10:00 10/02/24 10:48 81 MG Atorvastatin Calcium 20 mg HS PO 09/30/24 22:00 10/02/24 22:18 20 MG Hydralazine HCl 10 mg Q6HP PRN IV 09/29/24 22:30 10/02/24 01:25 10 MG Diagnostic Test (Pha) 1 strip ACHS 09/30/24 07:00 10/03/24 06:38 1 STRIP Insulin Human Regular ACHS SC 09/30/24 07:00 10/03/24 06:40 2 UNITS Dextrose 50 ml UD PRN IV 09/29/24 22:30 Sodium Chloride 1,000 ml @ 60 mls/hr [id number] IV 09/29/24 22:30 10/02/24 00:30 60 MLS/HR Acetaminophen/ Hydrocodone Bitart 1 tab Q4HP PRN PO 09/29/24 22:30 Ondansetron HCl 4 mg Q4HP PRN IV 09/29/24 22:30 Docusate Sodium 100 mg BIDPRN PRN PO 09/29/24 22:30 Acetaminophen 650 mg Q6HP PRN PO 09/29/24 22:30 Nitroglycerin 0.4 mg Q5MINP PRN SL 09/29/24 23:45 Morphine Sulfate 2 mg Q30M PRN IV 09/29/24 23:45 Losartan Potassium 100 mg DAILY PO 10/01/24 10:00 10/02/24 10:49 100 MG Amiodarone HCl 200 mg HS PO 10/01/24 22:00 10/02/24 22:18 200 MG Metoprolol Succinate 12.5 mg DAILY PO 10/02/24 10:00 10/02/24 10:55 12.5 MG Lorazepam 1 mg ONCE PRN IV 10/02/24 00:00 laboratory and microbiology Laboratory Tests 09/30/24 05:02 Test 09/30/24 05:02 Range/Units Serum Glucose 136 H 74-106 mg/dL Assessment/Plan This is an 83-year old male known outside to our practice who initially presented 09/29/2024 with reported generalized weakness and dizziness. Patient himself reports the dizziness is worse when transitioning from a seated to standing position which he conveys he has not been able to stand up on his own without assistance. Given persistent nature of his symptoms patient was brought to ED by his son-in-law for further evaluation and management. Upon ED arrival, CT imaging of the brain was found negative for any acute intracranial pathology. Initial 12-lead electrocardiogram had revealed sinus rhythm at 55bpm, first degree AV block, Q-waves involving septal leads questioning possible previous WA, with no evidence for acute ischemic changes. Serial HS troponin trend was found negative (11, 10, 10). Initial proBNP level was found normal at 71.31 which subsequent chest imaging had revealed no evidence for acute cardiopulmonary abnormalities. Initial creatine level was found elevated at 1.36 which subsequent renal ultrasound was found consistent with underlying medical renal disease (Nephrology services were later involved). Of note, patient carries a diagnosis of atrial fibrillation that had been mentioned by Neurology services at one point in the distant past however as the patient is known to our practice from outside, outside records reveal there has been NO documented diagnosis of atrial fibrillation to date however previous workup has revealed an underlying history of NSVT/SVT/PVCs for which he has been managed with Amiodarone and Metoprolol Succinate. Upon review of records, patient had previously been admitted to this facility in early September of 2024 for questionable transient ischemic attack and at that time, HPI note had again reported a history of atrial fibrillation which the diagnosis itself appears to have followed the patient despite no objective evidence (EKG tracings/telemetry strips) to date confirming its diagnosis. At that time, Echocardiogram 09/16/2024 had revealed a preserved LVEF of 65%, mild LV diastolic dysfunction, heavy calcified aortic leaflets, moderate degree aortic stenosis with an aortic valve area of 1.65cm2. Patient was furthermore found to have 50-69% stenosis involving the right ICA by sonogram. At present, recognizing mechanism of dizziness, orthostatic hypotension can not be ruled out. Presently, denies any active chest pain, shortness of breath, palpitations, syncope, orthopnea, paroxysmal nocturnal dyspnea, or any further cardiac related symptoms. As there had been questionable concern for previous history of PAF not on concurrent AC therapy, Cardiology services were involved by primary team request for cardiac aspects of care. Past medical history includes diabetes mellitus, hypertension, hyperlipidemia, chronic kidney disease, repeated prior CVAs, vertigo, right internal carotid artery stenosis, GERD, history of frequent NSVT/SVT and PVCs. He has had hernia repair, cholecystectomy, and cataract surgery, He is on Amiodarone and Toprol- XL as outpatient. Echocardiogram of April 08, 2023 (performed in the office) had revealed ejection fraction of 65-70%, mild biatrial enlargement, mild concentric left ventricular hypertrophy, [id number] MR/TR/AI, mild MVP and mild pulmonary insufficiency Echocardiogram of September 16, 2024 ([facility]) had revealed ejection fraction of 65%, mild left ventricular hypertrophy, mild LV diastolic dysfunction, heavily calcified aortic leaflets, moderate degree aortic stenosis with aortic valve area of 1.65cm2 and is moderately reduced, normal mitral, tricuspid, pulmonic valves Nuclear stress tests (performed as outpatient) on June 23, 2022 did not reveal ischemia/car and reported ejection fraction of 69% Exercise treadmill stress test (performed as outpatient in April 2023) did not reveal ischemia. Baseline EKG had revealed frequent PVCs which during exercise: the load of PVC had decreased Dizziness, rule out orthostatic hypotension History of arrhythmias (NSVT, SVT, PVC's), on Amiodarone/Beta-Sheldon therapy Valvular heart disease, moderate degree per TTE (09/16/2024) Chronic diastolic heart failure, LVEF of 65% (09/16/2024) 50-69% right ICA stenosis, per sonogram findings SHERIF superimposed on CKD Repeated history of CVAs Vertigo, history of Diabetes mellitus Hyperlipidemia Hypertension CARDIAC SUGGESTIONS FOR MANAGEMENT: Request for orthostatic vital signs As there has been no objective data to date confirming presence of PAF, AC at his point is not indicated from a cardiac perspective Out-patient based long-term event monitoring to rule out occult arrhythmias can be justified/arranged To proceed with close rate and rhythm surveillance during the interim Atorvastatin 20mg daily (goal LDL < 60 given right ICA stenosis) On Aspirin 81mg daily for previous history of CVA's Metoprolol Succinate 12.5mg once daily Amiodarone 200mg q hs Proceed with strict intakes, outputs, and daily weights Proceed with close hemodynamic surveillance Proceed with optimized blood pressure control Transfuse to sustain HGB level above 7.0 Sustain Magnesium level greater than 2.0 Sustain Potassium level greater than 4.0 Follow up renal function and electrolytes Consider vascular surgery evaluation if warranted for underlying carotid stenosis Management of co-morbidities as per primary team Management of SHERIF on CKD as per Nephrology Management in telemetry Follow up center consultant recommendations Will proceed to follow from a cardiac perspective Further recommendations per clinical progression Cardiac ellis is stable and can be followed as outpatient All available diagnostic labs, EKG's, and images were personally reviewed Plan of care discussed with and agreed upon by patient / family / primary RN Prognosis: Guarded Thank you for allowing me to participate in the care of this patient. Further recommendations based on patients clinical course and progression, primary attending, and other consultants. Will continue to follow with primary attending. If you have any questions or concerns, please do not hesitate to contact me. A total of 75 minutes was spent reviewing the patient record, examining the patient, making a diagnostic and therapeutic plan, discussing this plan with medical personnel, following up on diagnostic studies and following the patient for clinical stability excluding any and all procedures. At least 50% of this time was spent in direct, [id number] contact. Dietary Evaluation Review Comments: Follow a 2GNA CCHO60 diet, monitor intake to meet 75% of his needs offer Nepro PO 240ml BID if intake <50% Expected Outcomes/Goals: controlled DM, maintained body wt, Plan discussed with: Patient, Other (nurse) HARJIT BENAVIDES MD Oct 03, 2024 07:07
[2024-10-03 08:00] VITALS: PULSE 53; RESP 18; O2SAT 97
[2024-10-03 08:39] VITALS: BP 105/66; PULSE 60; RESP 16; TEMP 97.6; O2SAT 99
--- NOTE | 2024-10-03 09:35 | DVHPN2 ---
Reviewed: Care Plan, H&P, Labs, Medications, Previous Orders, Radiology Changes from previous H/P or p: No Changes Eyes: No Pain, No Vision change, No Conjunctivae inflammation, No Eyelid inflammation, No Other, No Redness ENT: No Ear pain, No Ear discharge, No Nose pain, No Nose discharge, No Nose congestion, No Mouth pain, No Mouth swelling, No Throat pain, No Throat swelling, No Other Cardiovascular: No Chest Pain, No Palpitations, No Orthopnea, No Paroxysmal Noc. Dyspnea, No Edema, No Lt Headedness, No Other Respiratory: No Cough, No Dry, No Shortness of breath, No SOB with excertion, No Wheezing, No Hemoptysis, No Pleuritic Pain, No Sputum, No Other Gastrointestinal: No Nausea, No Vomiting, No Abdominal Pain, No Diarrhea, No Constipation, No Melena, No Hematochezia, No Other Genitourinary: No Dysuria, No Frequency, No Incontinence, No Hematuria, No Retention, No Other Musculoskeletal: No other, No neck pain, No shoulder pain, No arm pain, No back pain, No hand pain, No leg pain, No foot pain Skin: No Rash, No Lesions, No Jaundice, No Bruising, No Other Objective Vitals Vital Signs Date Time Temp Pulse Resp B/P (MAP) Pulse Ox O2 Delivery O2 Flow Rate FiO2 10/03/24 05:00 97.5 62 146/75 (98) 98 97.5 16 10/02/24 20:00 Room Air* 0 21 10/02/24 17:00 18 Intake/Output Intake and Output 10/03/24 07:00 Intake Total 800 ml Output Total 1126 ml Balance -326 ml Intake Oral 800 ml Output Urine Total 1125 ml Stool Total 1 ml Medications Current Medications Medications Dose Ordered Sig/Carlos Route Start Time Stop Time Status Last Admin Dose Admin Aspirin 81 mg DAILY PO 09/30/24 10:00 10/02/24 10:48 81 MG Atorvastatin Calcium 20 mg HS PO 09/30/24 22:00 10/02/24 22:18 20 MG Hydralazine HCl 10 mg Q6HP PRN IV 09/29/24 22:30 10/02/24 01:25 10 MG Diagnostic Test (Pha) 1 strip ACHS 09/30/24 07:00 10/03/24 06:38 1 STRIP Insulin Human Regular ACHS SC 09/30/24 07:00 10/03/24 06:40 2 UNITS Dextrose 50 ml UD PRN IV 09/29/24 22:30 Sodium Chloride 1,000 ml @ 60 mls/hr [id number] IV 09/29/24 22:30 10/02/24 00:30 60 MLS/HR Acetaminophen/ Hydrocodone Bitart 1 tab Q4HP PRN PO 09/29/24 22:30 Ondansetron HCl 4 mg Q4HP PRN IV 09/29/24 22:30 Docusate Sodium 100 mg BIDPRN PRN PO 09/29/24 22:30 Acetaminophen 650 mg Q6HP PRN PO 09/29/24 22:30 Nitroglycerin 0.4 mg Q5MINP PRN SL 09/29/24 23:45 Morphine Sulfate 2 mg Q30M PRN IV 09/29/24 23:45 Losartan Potassium 100 mg DAILY PO 10/01/24 10:00 10/02/24 10:49 100 MG Amiodarone HCl 200 mg HS PO 10/01/24 22:00 10/02/24 22:18 200 MG Metoprolol Succinate 12.5 mg DAILY PO 10/02/24 10:00 10/02/24 10:55 12.5 MG Lorazepam 1 mg ONCE PRN IV 10/02/24 00:00 Laboratory Results Laboratory Tests 09/30/24 05:02 Urinalysis Test 09/30/24 15:56 Urine Color Light-yellow (Yellow) Urine Clarity Clear (Clear) Urine pH 5.0 (5.0-9.0) Urine Specific [place] 1.021 (1.001-1.035) Urine Protein Negative (Negative) Urine Ketones Negative (Negative) Urine Blood Negative /uL (Negative) Urine Nitrite Negative (Negative) Urine Bilirubin Negative (Negative) Urine Urobilinogen Normal mg/dL (Negative) Urine Leukocyte Esterase Negative /uL (Negative) Urine RBC 1 /hpf (0 - 3) Urine Microscopic WBC /HPF (0-3) Urine Squamous Epithelial Cells Few /hpf (<5) Urine Bacteria None seen /hpf (None Seen) Urine Creatinine 48.90 mg/dL (30.0-125.0) Urine Protein/Creatinine Ratio 0.43 Urine Sodium 90 mmol/L (40-220) Urine Glucose 4+ mg/dL (Normal) H Urine Total Protein 21.1 mg/dL (1-14) H Microbiology Microbiology Date/Time Source Procedure Growth Status 09/30/24 02:20 Nose MRSA Screen - Final Complete 09/29/24 16:56 Blood Blood Culture - Preliminary NO GROWTH AFTER 72 HOURS OF INCUBATION. Resulted Labs and/or images reviewed: Labs reviewed by me, Image(s) reviewed by me Assessment/Plan Assessment/Plan Dizziness due to orthostatic hypotension Recurrent falls at home : CT head negative, History of SVT on amiodarone and beta dontrell Acute on chronic diastolic heart failure ejection fraction 65% Unsteady gait: Neurology consult appreciated Acute metabolic encephalopathy Acute kidney injury versus vasomotor nephropathy nephrology consult by Dr. Epstein appreciated History of prostate cancer five years ago History of strokes x4 Reasonably well controlled diabetes A1c 7.0 Hypertension Hyperlipidemia Diabetes Paroxysmal AFib : Not on any blood thinners: Consult for patient's airfield services officer Dr. Hernandez General deconditioning Anxiety Depression Time spent 50 minutes Daughter Yuni [phone] at bed side Physical Therapy consult Discussed with the patient and his daughter for correction facility placement for physical therapy and rehab and they agreed, Plan discussed with: Patient Date of Service: Oct 03, 2024 Billing Provider: EMEKA NELSON MD Common Visit Codes: [id number] INP/OBS CARE(HIGH) EMEKA NELSON MD Oct 03, 2024 09:35
--- NOTE | 2024-10-03 09:43 | DVHDS2 ---
Discharge Summary Date of Admission Sep 29, 2024 at 23:33 Date of Discharge: Oct 03, 2024 Admitting Diagnosis Recurrent falls and dizziness Wounds: None Labs/Diagnostic Data: Laboratory Results Test 10/03/24 06:24 10/01/24 18:05 09/30/24 15:56 09/30/24 05:02 POC Glucose 143 mg/dl (70-106) Thyroid Stimulating Hormone (TSH) 2.73 uIU/mL (0.55-4.78) Free Thyroxine (T4) Calculated 1.22 ng/dL (0.89-1.76) Urine Color Light-yellow (Yellow) Urine Clarity Clear (Clear) Urine pH 5.0 (5.0-9.0) Urine Specific [place] 1.021 (1.001-1.035) Urine Protein Negative (Negative) Urine Ketones Negative (Negative) Urine Blood Negative /uL (Negative) Urine Nitrite Negative (Negative) Urine Bilirubin Negative (Negative) Urine Urobilinogen Normal mg/dL (Negative) Urine Leukocyte Esterase Negative /uL (Negative) Urine RBC 1 /hpf (0 - 3) Urine Microscopic WBC /HPF (0-3) Urine Squamous Epithelial Cells Few /hpf (<5) Urine Bacteria None seen /hpf (None Seen) Urine Creatinine 48.90 mg/dL (30.0-125.0) Urine Protein/Creatinine Ratio 0.43 Urine Sodium 90 mmol/L (40-220) Urine Glucose 4+ mg/dL (Normal) Urine Total Protein 21.1 mg/dL (1-14) White Blood Count 6.7 10^3/uL (4.4-10.8) Red Blood Count 4.53 10^6/uL (4.5-5.90) Hemoglobin 13.9 g/dL (13.5-17.5) Hematocrit 40.2 % (41.0-53.0) Mean Corpuscular Volume 88.9 fL (80.0-100.0) Mean Corpuscular Hemoglobin 30.6 pg (28.0-32.0) Mean Corpuscular Hemoglobin Concent 34.4 g/dL (32.0-36.0) Red Cell Distribution Width 14.7 % (11.8-14.3) Platelet Count 205 10^3/uL (140-450) Mean Platelet Volume 7.3 fL (6.9-10.8) Neutrophils (%) (Auto) 63.6 % (37.0-80.0) Lymphocytes (%) (Auto) 22.2 % (10.0-50.0) Monocytes (%) (Auto) 10.1 % (0.0-12.0) Eosinophils (%) (Auto) 3.8 % (0.0-7.0) Basophils (%) (Auto) 0.3 % (0.0-2.0) Neutrophils # (Auto) 4.3 10 ^3/uL (1.6-8.6) Lymphocytes # (Auto) 1.5 10 ^3/uL (0.4-5.4) Monocytes # (Auto) 0.7 10 ^3/uL (0-1.3) Eosinophils # (Auto) 0.3 10 ^3/uL (0-0.8) Basophils # (Auto) 0 10 ^3/uL (0-0.2) Nucleated Red Blood Cells 0.1 % Sodium Level 144 mmol/L (136-145) Potassium Level 3.9 mmol/L (3.5-5.1) Chloride Level 111 mmol/L (98-107) Carbon Dioxide Level 24 mmol/L (20-31) Anion Gap 9 (5-15) Blood Urea Nitrogen 48 mg/dL (9-23) Creatinine 1.38 mg/dL (0.700-1.30) Glomerular Filtration Rate Calc 50 mL/min (>90) BUN/Creatinine Ratio 34.8 (10.0-20.0) Serum Glucose 136 mg/dL (74-106) Uric Acid 4.5 mg/dL (3.7-9.2) Calcium Level 11.0 mg/dL (8.7-10.4) Phosphorus Level 4.8 mg/dL (2.4-5.1) Magnesium Level 2.3 mg/dL (1.6-2.6) Total Bilirubin 0.5 mg/dL (0.2-1.0) Aspartate Amino Transferase (AST) 19 U/L (<34) Alanine Aminotransferase (ALT) 22 U/L (7-40) Alkaline Phosphatase 95 U/L (46-116) Creatine Kinase 50 U/L (46-171) B-Type Natriuretic Peptide 60.14 pg/mL (0-100) Total Protein 6.8 g/dL (5.7-8.2) Albumin 4.4 g/dL (3.2-4.8) Vitamin D 25-Hydroxy 54.5 ng/mL (30.0-100) Parathyroid Hormone (Intact) 19.1 pg/mL (18.4-80.1) Test 09/29/24 19:59 09/29/24 16:56 Troponin I High Sensitivity 10 ng/L (</=54) Lactic Acid Level 0.8 mmol/L (0.4-2.0) Lipase 28 U/L (12-53) Other Laboratory Tests 09/30/24 05:02 Brief Hx & Hospital Course: 83-year-old male with multiple medical problems including history of prostate cancer five years ago history of stroke x4 diabetes hypertension hypercholesterolemia paroxysmal AFib not on any blood thinners secondary to risk for recurrent falls anxiety depression congestive heart failure history of SVT on amiodarone and beta dontrell burden by family for dizziness and recurrent falls. CT head was negative patient was started on amiodarone and beta dontrell for his SVT ejection fraction 65 percent seen by his television maintenance worker Dr. Hernandez patient has had unsteady gait seen by Neurology Dr. Gonzalez CT head was negative. Acute kidney injury at [facility] by the sed high school teacher. Physical therapy recommended correction facility for rehab for recurrent falls and the patient and daughter Patrice Workman agree. Discharged to correction facility. general condition stable but poor at the time of discharge. Consults/Reason for consult Neurology Dr. Gonzalez Cardiology Dr. Hernandez Operations or Procedures CT head Condition at Discharge: Fair Final Diagnosis/Problems List Dizziness due to orthostatic hypotension Recurrent falls at home : CT head negative, History of SVT on amiodarone and beta dontrell Acute on chronic diastolic heart failure ejection fraction 65% Unsteady gait: Neurology consult appreciated Acute metabolic encephalopathy Acute kidney injury versus vasomotor nephropathy nephrology consult by Dr. Epstein appreciated History of prostate cancer five years ago History of strokes x4 Reasonably well controlled diabetes A1c 7.0 Hypertension Hyperlipidemia Diabetes Paroxysmal AFib : Not on any blood thinners: Consult for patient's television maintenance worker Dr. Hernandez General deconditioning Anxiety Depression Discharge Disposition: Halfway Facility Discharge Instruct/Medications Diet: Cardiac 2g Na,low cholest Activity: Light activity Follow Up/Referral: Follow up with the longterm Medications: see list 39 (Time taken for discharge summary 39 minutes) Discharge Statement: "Patient was advised to return to the ER or call 911 if any headaches, dizziness, shortness of breath, chest pain, abdominal pain, bleeding, fevers, or worsening of medical condition. Patient was counseled about treatment plan, medications, possible side effects, patientverbalized understanding. All questions were answered to the best of my ability. This discharge took greater then 30 minutes in planning, reviewing documentation, counseling the patient, and discussing with other team members." DME: Diagnosis: [facility] [employer] ASSESSMENT ASSESSMENT Hospital Course Marginal improvement Assessment Dizziness due to orthostatic hypotension Recurrent falls at home : CT head negative, History of SVT on amiodarone and beta dontrell Acute on chronic diastolic heart failure ejection fraction 65% Unsteady gait: Neurology consult appreciated Acute metabolic encephalopathy Acute kidney injury versus vasomotor nephropathy nephrology consult by Dr. Epstein appreciated History of prostate cancer five years ago History of strokes x4 Reasonably well controlled diabetes A1c 7.0 Hypertension Hyperlipidemia Diabetes Paroxysmal AFib : Not on any blood thinners: Consult for patient's television maintenance worker Dr. Hernandez General deconditioning Anxiety Depression Date of Service: Oct 03, 2024 Billing Provider: EMEKA NELSON MD Common Visit Codes: 17882-VON/OBS DISCH DAY >30min EMEKA NELSON MD Oct 03, 2024 09:43
--- NOTE | 2024-10-03 11:35 | DVHPN2 ---
Progress Note Date Seen: Oct 03, 2024 Medical Necessity Reason Pt with a Central, PICC or Fol: No Subjective Patient reports: No new complaints Other Systems: Patient seen and examined by myself today in follow-up Objective vital signs Vital Sign Date Time Temp Pulse Resp B/P (MAP) Pulse Ox O2 Delivery O2 Flow Rate FiO2 10/03/24 09:24 62 135/57 10/03/24 08:39 97.6 16 99 97.6 10/03/24 08:00 Room Air* 0 21 Total Intake and Output 10/02/24 10/02/24 10/03/24 15:00 23:00 07:00 Intake Total 0 ml 500 ml 300 ml Output Total 675 ml 451 ml Balance 0 ml -175 ml -151 ml medications Current Medications Medications Dose Ordered Sig/Carlos Route Start Time Stop Time Status Last Admin Dose Admin Aspirin 81 mg DAILY PO 09/30/24 10:00 10/03/24 09:23 81 MG Atorvastatin Calcium 20 mg HS PO 09/30/24 22:00 10/02/24 22:18 20 MG Hydralazine HCl 10 mg Q6HP PRN IV 09/29/24 22:30 10/02/24 01:25 10 MG Diagnostic Test (Pha) 1 strip ACHS 09/30/24 07:00 10/03/24 06:38 1 STRIP Insulin Human Regular ACHS SC 09/30/24 07:00 10/03/24 06:40 2 UNITS Dextrose 50 ml UD PRN IV 09/29/24 22:30 Sodium Chloride 1,000 ml @ 60 mls/hr [id number] IV 09/29/24 22:30 10/02/24 00:30 60 MLS/HR Acetaminophen/ Hydrocodone Bitart 1 tab Q4HP PRN PO 09/29/24 22:30 Ondansetron HCl 4 mg Q4HP PRN IV 09/29/24 22:30 Docusate Sodium 100 mg BIDPRN PRN PO 09/29/24 22:30 Acetaminophen 650 mg Q6HP PRN PO 09/29/24 22:30 Nitroglycerin 0.4 mg Q5MINP PRN SL 09/29/24 23:45 Morphine Sulfate 2 mg Q30M PRN IV 09/29/24 23:45 Losartan Potassium 100 mg DAILY PO 10/01/24 10:00 10/03/24 09:23 100 MG Amiodarone HCl 200 mg HS PO 10/01/24 22:00 10/02/24 22:18 200 MG Metoprolol Succinate 12.5 mg DAILY PO 10/02/24 10:00 10/03/24 09:24 12.5 MG Lorazepam 1 mg ONCE PRN IV 10/02/24 00:00 Examination: LUNGS:Normal, CVS:Normal, MSK:Normal laboratory and microbiology Laboratory Tests 09/30/24 05:02 Test 09/30/24 05:02 Range/Units Serum Glucose 136 H 74-106 mg/dL Microbiology Date/Time Source Procedure Growth Status 09/30/24 02:20 Nose MRSA Screen - Final Complete 09/29/24 16:56 Blood Blood Culture - Preliminary NO GROWTH AFTER 72 HOURS OF INCUBATION. Resulted Problem List/Assessment/Plan Problem List/Assessment/Plan Acute kidney injury superimposed Chronic Kidney Disease secondary hemodynamic mediated, FeNa > 2% Generalized weakness Hypotension, resolved Diabetes mellitus type 2 Bradycardia Hypercalcemia likely due to occult malignancy History of prostate cancer Recommendations Kidney function continues to improve Increased urine output Strict I&Os Streamline blood pressure medications Discontinue hydrochlorothiazide Insulin sliding scale kidney ultrasound bilateral echogenic kidney no hydronephrosis Cardiology consult We will continue to follow Plan discussed with: Patient My Orders My Orders Orders - LARISA SAUNDERS MD Procedure Category Date Status Time Comprehensive LAB 10/04/24 Verified Metabolic Panel 04:00 Dietary Evaluation Review Comments: Follow a 2GNA CCHO60 diet, monitor intake to meet 75% of his needs offer Nepro PO 240ml BID if intake <50% Expected Outcomes/Goals: controlled DM, maintained body wt, LARISA SAUNDERS MD Oct 03, 2024 11:35
[2024-10-03 13:00] VITALS: BP 127/61; PULSE 54; RESP 18; TEMP 98; O2SAT 96
[2024-10-03 13:21] LABS: COVID19 ANTIGEN SOFIA FIA NEGATIVE (NEGATIVE)
== END 2024-10-03 15:20 | DRG 682 ==
LOC: ER 16:32 → OVERFLOW 23:33 → TELE-CENTR 09-30 01:30
PROVIDERS: ADMIT Family Medicine; ATTEND Family Medicine
DX: N17.0 Acute kidney failure with tubular necrosis (principal); G93.41 Metabolic encephalopathy; I50.33 Acute on chronic diastolic (congestive) heart failure; I13.2 Hypertensive heart and chronic kidney disease with heart failure and with stage 5 chronic kidney disease, or end stage renal disease; E86.0 Dehydration; N18.6 End stage renal disease; I95.1 Orthostatic hypotension; E11.22 Type 2 diabetes mellitus with diabetic chronic kidney disease; F41.1 Generalized anxiety disorder; F32.A Depression, unspecified; E78.00 Pure hypercholesterolemia, unspecified; J98.4 Other disorders of lung; K21.9 Gastro-esophageal reflux disease without esophagitis; I48.0 Paroxysmal atrial fibrillation; E83.52 Hypercalcemia; R26.81 Unsteadiness on feet; Z79.82 Long term (current) use of aspirin; Z79.2 Long term (current) use of antibiotics; Z79.4 Long term (current) use of insulin; Z79.899 Other long term (current) drug therapy; Z90.49 Acquired absence of other specified parts of digestive tract; Z85.46 Personal history of malignant neoplasm of prostate; I25.2 Old myocardial infarction; Z86.73 Personal history of transient ischemic attack (TIA), and cerebral infarction without residual deficits
CPT/HCPCS: 36415; 70450; 71045; 76775; 80053; 81001; 82306; 82550; 82570; 82962; 83605; 83690; 83735; 83880; 83970; 84100; 84156; 84300; 84439; 84443; 84484; 84550; 85025; 87040; 87081; 87426; 93005; 96374; 97110; 97116; 97163; G0378; J1815